=== PATIENT | male | born 1950 | race Caucasian/White ===

== ENCOUNTER 2022-04-24 13:42 | Outpatient (CLI) | payer MEDICARE, SELFPAY ==
[2022-04-24 16:19] LABS: Albumin* 5.3 g/dL (3.3-5.0); Chloride* 100 mmol/L (96-114)
[2022-04-24 16:20] LABS: Potassium* 4.7 mmol/L (3.6-5.1); Sodium* 138 mmol/L (135-149)
[2022-04-24 16:22] LABS: Alkaline Phosphatase* 83 U/L (40-150); Aspartate Amino Transferase* 96 U/L (12-35); Bilirubin Total* 0.7 mg/dL (0.1-1.5); Blood Urea Nitrogen* 21 mg/dL (7-30); Carbon Dioxide* 24 mmol/L (20-32); Cholesterol* 274 mg/dL (90-199); Creatinine* 0.9 mg/dL (0.5-1.5); Estimated Glomerular Filt Rate 91 ml/min; Total Protein* 8.8 g/dL (6.0-8.3)
[2022-04-24 16:23] LABS: Alanine Aminotransferase* 96 U/L (4-50); Calcium* 9.9 mg/dL (8.4-10.6); Glucose* 120 mg/dL (60-115); HDL Cholesterol* 46 mg/dL (>=40); LDL Cholesterol Calculated 166 mg/dL (<100); Triglycerides* 308 mg/dL (40-149)
[2022-04-24 16:52] LABS: PSA Screen* 0.35 ng/mL (0.10-4.00)
== END 2022-04-24 13:43 | disposition home or self-care (01) ==
PROVIDERS: PCP Family Medicine; Visit Provider Family Medicine
DX: Z00.00 Encounter for general adult medical examination without abnormal findings (principal); E78.5 Hyperlipidemia, unspecified; R73.01 Impaired fasting glucose; E66.9 Obesity, unspecified; N40.0 Benign prostatic hyperplasia without lower urinary tract symptoms; I10 Essential (primary) hypertension; Z12.5 Encounter for screening for malignant neoplasm of prostate
CPT/HCPCS: 80053; 80061; 84153

== ENCOUNTER 2023-01-14 12:12 | Emergency (ER) | payer MEDICARE, SELFPAY ==
[2023-01-14] VITALS (20 sets, daily range): BP systolic 142–150; BP diastolic 86–100; PULSE 71–90; RESP 20; TEMP 36.2; O2SAT 92–96; BMI 37.1
--- NOTE | 2023-01-14 12:43 | ED_ITS ---
HPI - Abdominal Pain General Time Seen by Provider: 12:43 Date Seen: 01/14/23 Chief Complaint: Abdominal Pain Stated Complaint: lower abdominal pain, unable to uintaite Time Seen by Provider: 01/14/23 12:43 Source: patient, RN notes reviewed and old records reviewed Mode of arrival: ambulatory Limitations: no limitations History of Present Illness HPI narrative: Patient is a 72-year-old male coming into the ER with abdominal pain, stating he can not urinate. He endorses dribbling urination for the last few years, feels like he is unable to urinate at the time. He points to his abdomen states it really hurts in the left lower quadrant. No fevers chills, no nausea vomiting, no diarrhea. He has had a history kidney stones, believes last 1 was maybe 25 years ago but was hospitalized. He states that he was told his prostate was enlarged couple years back on examination with his primary care provider. MD elicited complaint: abdominal pain Pertinent past history: kidney stones Related Data Previous Rx's Medication Instructions Recorded albuterol sulfate 90 mcg/actuation 2 puff inhalation Q4-6H PRN 05/01/22 aerosol inhaler shortness of breath or wheezing #8.5 grams amlodipine 10 mg tablet 10 mg PO QDAY #90 tabs 05/01/22 fluticasone 250 mcg-salmeterol 50 1 inh inhalation BID #180 ea 05/01/22 mcg/dose blistr powdr for inhalation (Advair Diskus) hydrochlorothiazide 25 mg tablet 25 mg PO .QD #90 tabs 05/01/22 hydroxyzine HCl 25 mg tablet 25 mg PO DAILY PRN itching #90 tabs 05/01/22 ipratropium 20 mcg-albuterol 100 1 puff inhalation QID PRN wheezing 05/01/22 mcg/actuation mist for inhalation #4 grams lorazepam 1 mg tablet 1 mg PO QDAY PRN insomnia #90 tabs 10/21/22 Allergies Allergy/AdvReac Type Severity Reaction Status Date / Time tetanus toxoid, adsorbed Allergy Mild swelling Verified 05/07/22 16:34 of arms Review of Systems Status of ROS Reports: 6 or more systems reviewed and unremarkable except as noted in History and below PFSH PFS Social History (Updated 05/01/22 @ 20:13 by Benoit Lyons MD) Narrative: Medical Problems: Prostatitis, acute Hypertension Obesity COPD (chronic obstructive pulmonary disease) Dxed 2004, on Advair Malaise and fatigue Shortness of breath Panic attack Dysthymia COPD exacerbation Elevated LFTs GERD (gastroesophageal reflux disease) HTN (hypertension) Tubular adenoma of colon Hyperlipidemia NAFLD (nonalcoholic fatty liver disease) Smoking Status: Former smoker How often do you have a drink containing alcohol: never How often do you have six or more drinks on one occasion: Never AUDIT-C Alcohol total score: 0 Non-prescribed substance use: denies use Little interest or pleasure in doing things: not at all Feeling down, depressed, or hopeless: not at all Exam Const: Vital Signs, click to edit/add: Vital Signs - 24 hr 01/14/23 12:28 01/14/23 13:48 01/14/23 13:49 Temperature 97.1 F L Pulse Rate 81 80 Pulse Rate [Pulse Oximeter] 90 Respiratory Rate 20 Blood Pressure 147/86 H Blood Pressure [Ri ght Upper Arm] 143/88 H Pulse Oximetry 95 94 92 Oxygen Delivery Me thod Room Air 01/14/23 14:00 01/14/23 14:02 01/14/23 14:15 Temperature Pulse Rate 80 78 78 Pulse Rate [Pulse Oximeter] Respiratory Rate Blood Pressure 150/90 H Blood Pressure [Ri ght Upper Arm] Pulse Oximetry 92 93 93 Oxygen Delivery Me thod 01/14/23 14:30 01/14/23 14:45 01/14/23 15:00 Temperature Pulse Rate 74 77 76 Pulse Rate [Pulse Oximeter] Respiratory Rate Blood Pressure Blood Pressure [Ri ght Upper Arm] Pulse Oximetry 92 93 94 Oxygen Delivery Me thod 01/14/23 15:02 Temperature Pulse Rate 79 Pulse Rate [Pulse Oximeter] Respiratory Rate Blood Pressure 142/87 H Blood Pressure [Ri ght Upper Arm] Pulse Oximetry 96 Oxygen Delivery Me thod Uncomfortable patient standing in the room. Documenting provider has reviewed patient's vital signs: yes Common normals: oriented x3, alert and well nourished General appearance: cooperative, well kempt and well developed Nutritional appearance: obese HENMT: Common normals: normocephalic, head/scalp atraumatic, hearing grossly normal bilaterally and external nose normal Head and scalp: normocephalic and atraumatic Nose: external nose normal Eye: Common normals: PERRL, EOMs intact bilaterally, conjunctivae normal and no scleral icterus Conjunctiva: conjunctiva(e) normal Pupil: PERRL Neck & C-Spine: Common normals: full ROM, no lymphadenopathy and supple Resp: Common normals: normal respiratory effort, no retractions, no use of accessory muscles and clear to auscultation bilaterally Effort & inspection: able to speak in complete sentences Auscultation: clear to auscultation bilaterally Cardio: Common normals: regular rate, regular rhythm, S1 normal heart sound, S2 normal heart sound, no gallops, no clicks, no murmurs and no rub Rate: regular rate Rhythm: regular rhythm Heart sounds: S1 normal and S2 normal GI: Common normals: Normal to inspection, nondistended, normoactive bowel sounds present, soft to palpation, non-tender, no hepatosplenomegaly and no masses Palpation: soft and no hepatosplenomegaly Other: Was in room when nursing staff was attempt to do bladder scan, they were getting minimal urine in the bladder. Did do ultrasound myself and did not find any bladder distention. He is pointing to his pain more in the left lower quadrant, there is no reproducible palpable pain at this time. Certainly is history in line with his clinical exam makes me much more concerned about a kidney stone. Neuro: Common normals: oriented x3 Sensorium/orientation: alert Psych: Appearance: well kempt Course Course Hospital Course: Patient is having left lower quadrant abdominal pain, possible urinary symptoms with this. Do think we need to rule out kidney stone as a plausible explanation. Will get basic blood work, obtain CT abdomen pelvis noncontrast. Will give him a bolus of 500 mL normal saline and 15 mg IV Toradol. Note his kidney function in April of 2022 was completely normal. Reevaluation(s) Time of Reevaluation #1: 15:33 Reevaluation #1: Have reviewed with patient any has inflammation in the sigmoid colon and is either diverticulitis versus colitis, likely infectious in his situation. The Toradol did help. He has had no fevers with this, no nausea vomiting. I do think he may be appropriate for trial for outpatient antibiotics, he does want to go home. We will give initial dose of IV antibiotics here and transition to oral antibiotics at home. He understands if he has worsening, will need to return. Vital Signs Vital signs: Initial Vital Signs Temperature 97.1 F L 01/14/23 12:28 Temperature Source Temporal Artery Scan 01/14/23 12:28 Pulse Rate 90 01/14/23 12:28 Respiratory Rate 20 01/14/23 12:28 Blood Pressure 143/88 H 01/14/23 12:28 Blood Pressure Mean 106 H 01/14/23 12:28 Blood Pressure Position Supine 01/14/23 12:28 Pulse Oximetry 95 01/14/23 12:28 Oxygen Delivery Method Room Air 01/14/23 12:28 Vital Signs Temperature 97.1 F L 01/14/23 12:28 Pulse Rate 90 01/14/23 12:28 Respiratory Rate 20 01/14/23 12:28 Blood Pressure 143/88 H 01/14/23 12:28 Pulse Oximetry 95 01/14/23 12:28 Oxygen Delivery Method Room Air 01/14/23 12:28 Temperature 97.1 F L 01/14/23 12:28 Pulse Rate 79 01/14/23 15:02 Respiratory Rate 20 01/14/23 12:28 Blood Pressure 142/87 H 01/14/23 15:02 Pulse Oximetry 96 01/14/23 15:02 Oxygen Delivery Method Room Air 01/14/23 12:28 MDM - Abdominal Pain Differential Diagnosis Differential diagnosis: Likely abdominal pain, calculus of kidney, constipation and diverticulitis Lab Data Attestation: I reviewed the patient's lab results. Labs: Lab Results 01/14/23 01/14/23 Range/Units 13:15 13:18 WBC 15.37 H (4.50-11.00) K/uL RBC 6.32 H (4.30-5.90) m/uL Hgb 17.5 (13.5-17.5) gm/dL Hct 52.2 (37.0-53.0) % MCV 83 (80-100) fL MCH 28 (26-34) pg MCHC 34 (32-36) gm/dL RDW Coeff of Ciara 13.6 (11.5-15.5) % Plt Count 274 (140-440) K/uL Neut % (Auto) 78.7 H (42.0-72.0) % Lymph % (Auto) 10.4 L (20-44) % [place] % (Auto) 8.0 (0.0-11.0) % Eos % (Auto) 2.0 (0.0-7.0) % Baso % (Auto) 0.7 (0.0-3.0) % Neut # (Auto) 12.10 H (1.7-7.0) K/uL Lymph # (Auto) 1.60 (0.90-2.90) K/uL [place] # (Auto) 1.20 H (0.00-0.90) K/UL Eos # (Auto) 0.30 (0.00-0.50) K/uL Baso # (Auto) 0.10 (0.00-0.30) K/uL Diff Slide Review Acceptable Review (Acceptable) Sodium 137 (135-149) mmol/L Potassium 3.8 (3.6-5.1) mmol/L Chloride 96 (96-114) mmol/L Carbon Dioxide 25 (20-32) mmol/L BUN 19 (7-30) mg/dL Creatinine 1.1 (0.5-1.5) mg/dL Estimated Creat Clear 53.97 Estimated GFR 71 ml/min Glucose 121 H (60-115) mg/dL Calcium 10.3 (8.4-10.6) mg/dL C-Reactive Protein 6.6 H (0.5-1.0) mg/dL POC Creatinine 1.3 (0.6-1.3) mg/dl Imaging Data CT scan - abdomen: Attestation: I have reviewed the pertinent imaging results. Radiologist's impression: Patient: ANGELITA COYNE Facility:?[facility] Patient ID:?[id number] Site Patient ID:?[id number]. Site :?[id number] Study:?CT Abdomen/Pelvis W/O-01/14/2023 1:41:03 PM Ordering Physician:?Charo Ramírez Final Report: INDICATION: Left lower quadrant abdominal pain and difficulty urinating TECHNIQUE: Axial images were obtained from the diaphragm to the pubic symphysis. Reformats were obtained in the coronal and sagittal plane. IV Contrast: None Oral Contrast: None COMPARISON: Abdomen and pelvis CT 05/18/2015 FINDINGS: Lower chest: Left lower lobe pulmonary nodule measuring 9 millimeters. Subpleural pulmonary nodule along the major fissure in the lingula measuring 6 millimeters. Liver: Mild hepatomegaly with diffusely decreased density of the liver without focal lesion. Gallbladder and bile ducts: Unremarkable. No stones or inflammation. No biliary dilatation. Spleen: Unremarkable. Normal in size without mass. Pancreas: Mild pancreatic atrophy. Adrenal glands: Unremarkable. No nodules. Kidneys: Unremarkable. No masses, stones, or hydronephrosis. Vasculature: Atherosclerosis with infrarenal abdominal aorta measuring 2.5 centimeters. GI tract: The stomach is decompressed. There are no dilated loops of large or small intestine. Extensive colonic diverticulosis with focal inflammation within the sigmoid mesentery. Pelvis: Unremarkable. Bones: Degenerative disc disease lumbar spine. IMPRESSION: 1. Colonic diverticulosis with focal inflammation in the sigmoid mesentery. Diverticulitis is possible although the inflammation does not appear centered around a particular diverticulum. Therefore, the differential diagnosis would include a long segment colitis, either infectious or inflammatory bowel disease. 2. Hepatomegaly with mild hepatic steatosis. 3. Pulmonary nodules within the left lower lobe and lingula, largest measuring 9 millimeters. These are present on the 2015 examination but have increased over the interval. Suggest follow-up outpatient PET-CT for further evaluation. Please note that all CT scans at this facility use dose modulation, iterative reconstruction, and/or weight-based dosing when appropriate to reduce radiation dose to as low as reasonably achievable. Dictated by Sheng Jean MD @ 01/14/2023 3:07:16 PM (Electronic Signature) Critical Care Time Critical Care Time Critical Care Time: No Discharge Plan Discharge Clinical Impression: Sigmoid diverticulitis Patient Disposition: Home, Self-Care Condition: Stable Instructions: Diverticulitis Diet (ED), Colitis (ED) Additional Instructions: CT is inconclusive whether this is exactly diverticulitis or colitis of the sigmoid. Either way, we are going to treat with antibiotics for infection. Do recommend taking an oral dose prior to bedtime tonight. Recommend clear liquid diet for the next 24 hours or so, can transition to a low residue diet for the next few weeks until you are improving. Recommend recheck in clinic within the next 7-10 days with your primary care provider. Return if you develop fever, have increasing abdominal pain, developed bloody diarrhea or vomiting, feel you are worsening. Activity Level: Activity as Tolerated Discharge Diet: Clear Liquid Prescriptions: No Action hydrochlorothiazide 25 mg tablet 25 mg PO .QD Qty: 90 3RF hydroxyzine HCl 25 mg tablet 25 mg PO DAILY PRN (Reason: itching) Qty: 90 3RF albuterol sulfate 90 mcg/actuation HFA aerosol inhaler 2 puff inhalation Q4-6H PRN (Reason: shortness of breath or wheezing) Qty: 8.5 3RF ipratropium-albuterol 20-100 mcg/actuation mist 1 puff inhalation QID PRN (Reason: wheezing) Qty: 4 11RF Rx Instructions: space evenly during waking hours fluticasone propion-salmeterol [Advair Diskus] 250-50 mcg/dose blister with device 1 inh inhalation BID Qty: 180 4RF amlodipine 10 mg tablet 10 mg PO QDAY Qty: 90 3RF lorazepam 1 mg tablet 1 mg PO QDAY PRN (Reason: insomnia) Qty: 90 0RF Follow Up/Referrals: Benoit Lyons MD [Primary Care Provider] - Stand Alone Forms: [facility] Info Instructions
--- NOTE | 2023-01-14 13:08 | CRLHL7_ITS ---
For Patients: As a result of the Century Cures Act, medical imaging exams and procedure reports are released immediately into your electronic medical record. You may view this report before your referring provider. If you have questions, please contact your health care provider. INDICATION: Left lower quadrant abdominal pain and difficulty urinating TECHNIQUE: Axial images were obtained from the diaphragm to the pubic symphysis. Reformats were obtained in the coronal and sagittal plane. IV Contrast: None Oral Contrast: None COMPARISON: Abdomen and pelvis CT 05/18/2015 FINDINGS: Lower chest: Left lower lobe pulmonary nodule measuring 9 millimeters. Subpleural pulmonary nodule along the major fissure in the lingula measuring 6 millimeters. Liver: Mild hepatomegaly with diffusely decreased density of the liver without focal lesion. Gallbladder and bile ducts: Unremarkable. No stones or inflammation. No biliary dilatation. Spleen: Unremarkable. Normal in size without mass. Pancreas: Mild pancreatic atrophy. Adrenal glands: Unremarkable. No nodules. Kidneys: Unremarkable. No masses, stones, or hydronephrosis. Vasculature: Atherosclerosis with infrarenal abdominal aorta measuring 2.5 centimeters. GI tract: The stomach is decompressed. There are no dilated loops of large or small intestine. Extensive colonic diverticulosis with focal inflammation within the sigmoid mesentery. Pelvis: Unremarkable. Bones: Degenerative disc disease lumbar spine. IMPRESSION: 1. Colonic diverticulosis with focal inflammation in the sigmoid mesentery. Diverticulitis is possible although the inflammation does not appear centered around a particular diverticulum. Therefore, the differential diagnosis would include a long segment colitis, either infectious or inflammatory bowel disease. 2. Hepatomegaly with mild hepatic steatosis. 3. Pulmonary nodules within the left lower lobe and lingula, largest measuring 9 millimeters. These are present on the 2014 examination but have increased over the interval. Suggest follow-up outpatient PET-CT for further evaluation. Please note that all CT scans at this facility use dose modulation, iterative reconstruction, and/or weight-based dosing when appropriate to reduce radiation dose to as low as reasonably achievable. Dictated by Sheng Jean MD @ 01/14/2023 3:07:16 PM (Electronically Signed)
[2023-01-14 13:25] LABS: Basophils Percent Auto 0.7 % (0.0-3.0); Hematocrit 52.2 % (37.0-53.0); Hemoglobin* 17.5 gm/dL (13.5-17.5); Immature Granulocytes Pct Auto 0.2 %; Lymphocytes Percent Auto 10.4 % (20-44); Mean Corpuscular HGB Conc 34 gm/dL (32-36); Mean Corpuscular Hemoglobin 28 pg (26-34); Mean Corpuscular Volume 83 fL (80-100); Neutrophils Percent Auto 78.7 % (42.0-72.0); Platelet Count* 274 K/uL (140-440); RDW Coefficient of Variation % 13.6 % (11.5-15.5); Red Blood Count 6.32 m/uL (4.30-5.90); White Blood Count* 15.37 K/uL (4.50-11.00)
[2023-01-14] MEDS: KETOROLAC 15 MG/ML inj IVP (13:31)
[2023-01-14 13:35] LABS: Creatinine, Point-of-Care* 1.3 mg/dl (0.6-1.3)
[2023-01-14 13:35] LABS: Slide Review Reflex Yes
[2023-01-14 13:39] LABS: Chloride* 96 mmol/L (96-114)
[2023-01-14 13:40] LABS: Potassium* 3.8 mmol/L (3.6-5.1); Sodium* 137 mmol/L (135-149)
[2023-01-14 13:42] LABS: Creatinine* 1.1 mg/dL (0.5-1.5); Est. Creatinine Clearance* 53.97; Estimated Glomerular Filt Rate 71 ml/min
[2023-01-14 13:43] LABS: Blood Urea Nitrogen* 19 mg/dL (7-30); Calcium* 10.3 mg/dL (8.4-10.6); Carbon Dioxide* 25 mmol/L (20-32); Glucose* 121 mg/dL (60-115)
[2023-01-14] MEDS: 0.9 % SODIUM CHLORIDE 500 ML 500 ML IV (13:43)
[2023-01-14 13:46] LABS: C Reactive Protein* 6.6 mg/dL (0.5-1.0)
[2023-01-14 13:51] LABS: Slide Review Acceptable Review (Acceptable)
[2023-01-14] MEDS: AMPICILLIN/SULBACTAM 3 GM in 0.9 % SODIUM CHLORIDE Mini-bag 100 ML IVPB (15:49)
== END 2023-01-14 16:56 | disposition home or self-care (01) ==
PROVIDERS: Emergency Provider Family Medicine; PCP Family Medicine
DX: K57.92 Diverticulitis of intestine, part unspecified, without perforation or abscess without bleeding (principal)
CPT/HCPCS: 36415; 51798; 74176; 80048; 81001; 82565; 85025; 86140; 96365; 96375; 99284; 99285; J0295; J1885; J7120

== ENCOUNTER 2024-01-09 14:57 | Outpatient (CLI) | payer MEDICARE, SELFPAY ==
--- OUTSIDE RECORDS SUMMARY | 2024-01-09 15:00 | XMS_ITS | Clinical Summary ---
Author Organization [employer] [facility] Address [place], [place] [address] Care Team Providers Care Windlasser Name Role Phone Benoit Lyons MD Primary Care Provider [phone] Allergies Active Allergy Reactions Criticality Noted Date Comments Tetanus And Diphtheria Toxoi ds, Adsorbed, Adult Edema 11/01/2015 Medications Medication Sig Dispensed Refills Start Date End Date Status diphenhydrAMINE (BENADRYL) 25 mg tablet Bedtime Active albuterol HFA (PRO-AIR) 90 mcg/actuation inhaler Every 4 Hours as needed 05/03/2020 Active amLODIPine (NORVASC) 10 mg tablet Daily 05/03/2020 Active fluticasone propion-salmeteroL (ADVAIR) 250-50 mcg/Dose diskus inhaler Twice A Day 05/03/2020 Active hydrOXYzine HCL (ATARAX) 25 mg tablet 02/01/2020 Act dnaielle hydroCHLOROthiazide (HCTZ) 25 mg tablet Daily 05/03/2020 Activ e ipratropium-albuteroL (COMBIVENT RESPIMAT) (20-100 mcg each actuation) mist inhaler Four Times Daily as needed 05/03/2020 Active LORazepam (ATIVAN) 1 mg tablet Bedtime as needed 05/10/2020 Active nicotine (NICORETTE) 2 mg gum Take 1 Each by mouth every hour while awake as needed for Nicotine Craving. 0 06/09/2020 Active Social History Tobacco Use Types Packs/Day Years Used Date Smoking Tobacco: Former Smokeless Tobacco: Never Tobacco Cessation:Counseling Given: Yes Social Connections Answer Date Recorded Frequency of Communication with Friends and Fami ly Not on file 07/22/2021 Financial Resource Strain Answer Date R ecorded Difficulty of Paying Living Expenses Not on file 07/22/2021 Difficulty of Paying Living Expenses Not on file 07/22/2021 Sex and Gender Information Value Date Recorded Sex Assigned at Not on file Gender Identity Not on file Sexual Orientation Not on file Obstetrics History Last Filed Vital Signs Vital Sign Reading Time Taken Comments Blood Pressure 140/88 06/09/2020 1:46 PM [employer] Pulse 82 06/09/2020 1:46 PM [employer] Temperature - - Respiratory Rate - - Oxygen Saturation 95% 06/09/2020 1:46 PM [employer] Inhaled Oxygen Concentration - - Weight 111.4 kg (245 lb 8 oz) 06/09/2020 1:46 PM [employer] Height - - Body Mass Index - - Plan of Treatment Health Maintenance Due Date Last Done Comments Tdap 1960 Depression screening for age 12+ 1961 BMI (ht and wt on same day) for age 18+ 10/01/1967 Tetanus booster 1969 Colonoscopy through age 75 1994 Lipids for age 45-75 1994 Zoster (shingles) series for age 50+ (1 of 2) 10/01/19 00 Medicare Wellness for age 65+ 2014 Pneumococcal series for age 65+ (1 of 1 - PCV) 015 COVID-19 vaccine series (1 - 2022-24 season) 3 Influenza for age 65+ 03/22/2024 Hepatitis C screening for age 18-79 Completed 06/09 Procedures Procedure Name Priority Date/Time Associated Diagnosis Comments ANTI HCV Routine 06/09/2020 2:21 PM [employer] Elevated liver enzymes from Last 3 Months or Most Recently Relevant to Health Maintenance Results * ANTI HCV (06/09/2020 2:21 PM [employer]) HEPATITIS C ANTIBODY Non-React danielle Non-React danielle 06/09/2020 10:08 PM [employer] [facility] Comment:Antibodies to HCV no t detected; does not exclude the possibility of exposure to HCV. Blood BLOOD SPECIMEN / Unknown Venipuncture / Unknown 06/09/2020 2:21 PM [employer] 06/09/2020 2:22 PM [employer] Kash Birmingham MD [facility] [address] [place] [address], from Last 3 Months or Most Recently Relevant to Health Maintenance Care Teams Windlasser Relationship Specialty Start Date End Date Benoit Lyons MD [address] [place] [id number] PCP - General Family Practice 06/09/20
== END 2024-01-09 14:58 | disposition home or self-care (01) ==
PROVIDERS: PCP Family Medicine; Visit Provider Family Medicine
DX: E78.5 Hyperlipidemia, unspecified (principal); I10 Essential (primary) hypertension; Z13.6 Encounter for screening for cardiovascular disorders
CPT/HCPCS: 80053; 80061

== ENCOUNTER 2024-03-21 14:03 | Emergency (ER) | payer MEDICARE, SELFPAY ==
[2024-03-21] VITALS (19 sets, daily range): BP systolic 153–172; BP diastolic 82–109; PULSE 74–94; RESP 30; TEMP 37.2; O2SAT 93–98; BMI 39.1
--- NOTE | 2024-03-21 14:18 | ED_ITS ---
HPI - General Adult General Chief complaint: Shortness of Breath/Dyspnea Stated complaint: COPD, spitting up blood Time Seen by Provider: 03/21/24 14:17 History of Present Illness HPI narrative: Pt coughing up blood x 1 day. States it looks like blood clots and mucus . Hx COPD, feels he is in a flare up. Reports lightheadedness . LEFT sided rib/chest pain, ongoing issue but worse with flare up. 73-year-old man presenting to the emergency department with concern of cough and chest congestion over the last week. Has been treating with guaifenesin of some sort. Maybe it helps. He has had some blood in sputum with some coughing over the last day. No fever. Does have an underlying history of COPD in thinks he might be in a flare. Apparently quit smoking upon this diagnosis. He has been feeling some lightheadedness. Feels a sense of pressure chest that can be r elieved with coughing. No fever. No chills. Has Advair which apparently is using regularly. Also has albuterol inhaler which he says does not help at this point. No particular exposures. Lives alone. Later questioning does admit that he is a little anxious. During exam does mention he has had some irritation of his left knee for some time. Intermittently even sensitive to a sheet being on it. He does not recount does not recount erythema. Maybe it swells? No specific trauma. Later does recount that has some shrapnel/foreign body remaining chronically. No history of gout. Related Data Previous Rx's ?Medication ?Instructions ?Recorded lorazepam 1 mg tablet 1 mg PO QDAY PRN insomnia #90 tabs 01/07/24 albuterol sulfate 90 mcg/actuation 2 puff inhalation Q4-6H PRN 01/09/24 aerosol inhaler shortness of breath or wheezing #8.5 grams amlodipine 10 mg tablet 10 mg PO QDAY #90 tabs 01/09/24 fluticasone 250 mcg-salmeterol 50 1 inh inhalation BID #180 ea 01/09/24 mcg/dose blistr powdr for inhalation hydrochlorothiazide 25 mg tablet 25 mg PO .QD #90 tabs 01/09/24 hydroxyzine HCl 25 mg tablet 25 mg PO DAILY PRN itching #90 tabs 01/09/24 doxycycline hyclate 100 mg capsule 100 mg PO BID 8 days #16 caps 03/21/24 ipratropium 0.5 mg-albuterol 3 mg 3 ml inhalation QID PRN #90 mL 03/21/24 (2.5 mg base)/3 mL nebulization soln prednisone 20 mg tablet 40 mg (2 x 20 mg) PO BID 5 days 03/21/24 #10 tabs Allergies Allergy/AdvReac Type Severity Reaction Status Date / Time tetanus toxoid, adsorbed Allergy Mild swelling Verified 03/21/24 14:15 of arms Review of Systems Status of ROS: Reports: 6 or more systems reviewed and unremarkable except as noted in History and below PFSH PFSH Social History Narrative: Medical Problems: Prostatitis, acute Hypertension Obesity COPD (chronic obstructive pulmonary disease) Dxed 2004, on Advair Malaise and fatigue Shortness of breath Panic attack Dysthymia COPD exacerbation Elevated LFTs GERD (gastroesophageal reflux disease) HTN (hypertension) Tubular adenoma of colon Hyperlipidemia NAFLD (nonalcoholic fatty liver disease) What is your current living situation?: I presently have a place to live In the past 12 months, utilities in danger of being shut off: no In past 12 months, lack of transportation kept you from medical appts, meetings, work, or getting things needed for daily living: no In the past 12 mos, have been you worried that your food would run out before you had money to buy more?: never true In the past 12 mos, the food you bought just didn't last and you didn't have money to buy more?: never true Smoking Status: Former smoker How often do you have a drink containing alcohol: never How often do you have six or more drinks on one occasion: Never AUDIT-C Alcohol total score: 0 Non-prescribed substance use: denies use How often does anyone, including family, friends and others, physically hurt you : never How often does anyone, including family, friends and others, insult or talk down to you: never How often does anyone, including family, friends and others, threaten you with harm: never How often does anyone, including family, friends and others, scream or curse at you: never Little interest or pleasure in doing things: not at all Feeling down, depressed, or hopeless: not at all Exam Narrative: Exam Narrative: He is seated at the end of the bed a little apologeticly. Subtly tremulous. Maybe a little flushed in his face. Fully alert. On my exam I do not appreciate him to be tachypneic. Maybe subtly labored. Lungs with diffuse trace crepitus and end-expiratory trace wheeze. Oropharynx is unremarkable. Skin is warm and dry. Well-perfused peripherally. There is no lower extremity edema. Heart is in a regular rate and rhythm but distant. No murmur identified. Abdomen is overweight soft. Is holding a tissue with trace amount of blood within other sputum. Examining of the left leg in more detail -- again without lower edema. Negative Homans. There is no swelling or erythema about the left knee although posteriorly intermittently seems to be more tender to palpation here centrally. A little full. No pes anserine bursal area tenderness. Subtle depression superior lateral to the patella and intermittently tender here. A little more of depression then evident on the right side. Const: Vital Signs, click to edit/add: Vital Signs - 24 hr 03/21/24 14:10 03/21/24 14:18 03/21/24 14:30 Temperature 98.9 F Pulse Rate 84 82 Pulse Rate [Pulse Oximeter] 87 Respiratory Rate 30 H Blood Pressure Blood Pressure [Le ft Upper Arm] 172/82 H Pulse Oximetry 95 96 93 [facility] 03/21/24 14:32 03/21/24 14:45 03/21/24 15:15 Temperature Pulse Rate 82 81 Pulse Rate [Pulse Oximeter] Respiratory Rate Blood Pressure 171/83 H Blood Pressure [Le ft Upper Arm] Pulse Oximetry 95 93 95 [facility] 03/21/24 15:17 03/21/24 15:18 03/21/24 15:30 Temperature Pulse Rate 76 80 82 Pulse Rate [Pulse Oximeter] Respiratory Rate Blood Pressure 153/109 H Blood Pressure [Le ft Upper Arm] Pulse Oximetry 94 95 98 [facility] 03/21/24 15:35 03/21/24 15:36 03/21/24 15:45 Temperature Pulse Rate 78 78 74 Pulse Rate [Pulse Oximeter] Respiratory Rate Blood Pressure 153/94 H Blood Pressure [Le ft Upper Arm] Pulse Oximetry 95 95 94 [facility] 03/21/24 16:00 03/21/24 16:02 03/21/24 16:15 Temperature Pulse Rate 94 79 76 Pulse Rate [Pulse Oximeter] Respiratory Rate Blood Pressure 163/96 H Blood Pressure [Le ft Upper Arm] Pulse Oximetry 96 93 95 Oxygen Delivery Me thod 03/21/24 16:24 03/21/24 16:30 03/21/24 16:32 Temperature Pulse Rate 83 74 80 Pulse Rate [Pulse Oximeter] Respiratory Rate Blood Pressure 168/100 H 157/82 H Blood Pressure [Le ft Upper Arm] Pulse Oximetry 94 94 93 Oxygen Delivery Me thod 03/21/24 16:45 Temperature Pulse Rate 78 Pulse Rate [Pulse Oximeter] Respiratory Rate Blood Pressure Blood Pressure [Le ft Upper Arm] Pulse Oximetry 93 Oxygen Delivery Me thod Documenting provider has reviewed patient's vital signs: yes Course Vital Signs Vital signs: Initial Vital Signs Temperature 98.9 F 03/21/24 14:10 Temperature Source Temporal Artery Scan 03/21/24 14:10 Pulse Rate 87 03/21/24 14:10 Pulse Rhythm Regular 03/21/24 14:10 Pulse Strength 3+ Normal 03/21/24 14:10 Respiratory Rate 30 H 03/21/24 14:10 Blood Pressure 172/82 H 03/21/24 14:10 Blood Pressure Mean 112 H 03/21/24 14:10 Blood Pressure Position Sitting 03/21/24 14:10 Pulse Oximetry 95 03/21/24 14:10 Oxygen Delivery Method Room Air 03/21/24 14:10 Vital Signs Temperature 98.9 F 03/21/24 14:10 Pulse Rate 87 03/21/24 14:10 Respiratory Rate 30 H 03/21/24 14:10 Blood Pressure 172/82 H 03/21/24 14:10 Pulse Oximetry 95 03/21/24 14:10 Oxygen Delivery Method Room Air 03/21/24 14:10 Temperature 98.9 F 03/21/24 14:10 Pulse Rate 78 03/21/24 16:45 Respiratory Rate 30 H 03/21/24 14:10 Blood Pressure 157/82 H 03/21/24 16:32 Pulse Oximetry 93 03/21/24 16:45 Oxygen Delivery Method Room Air 03/21/24 14:10 Medications Administered Medications: Discontinued Medications Generic Name Dose Route Start Last Admin Trade Name Freq PRN Reason Stop Dose Admin Albuterol/Ipratropium 1 neb 03/21/24 15:02 03/21/24 15:30 Iprat-Albut 0.5-2.5 Mg/3 Ml Neb IH 03/21/24 15:03 1 neb ONCE ONE Administration Prednisone 60 mg 03/21/24 17:46 03/21/24 17:50 Prednisone 20 Mg Tablet PO 03/21/24 17:47 60 mg ONCE ONE Administration Medical Decision Making MDM Narrative Medical decision making narrative: With diagnosis of COPD and findings on exam likely is having some degree of COPD flare. The pressure that he describes as doubtful cardiac. Would screen with D-dimer for PE but scores low on PERC -- maybe a 1. Description of pressure is reassuring in its intermittent nature but would also screen for any evidence of cardiovascular injury. Check labs. Look for pneumonia, pneumothorax. Check for COVID considering community prevalence. DuoNeb trial. Oximetry was by 95% on room air on arrival. Post neb is about the same, at times 93%, not unexpected after nebulization. He however reports feeling quite a bit better and reauscultation reveals clearing of wheeze and crepitus. He feels like he did manage to cough up more mucus. Chest x-ray reviewed by me has without infiltrate. No pneumothorax. Symptoms improved as noted and labs are reassuring. He would like a nebulizer as this has been the only thing that really helped him yet. I can write for this. He says he would consider paying [id number] depending on coverage. With COPD diagnosis though I think this is legitimate device to have at home. Pharmacies are closed. Will start prednisone here in the emergency department. We did discuss further evaluation of the knee including initiating imaging. He would prefer to follow this up outpatient. Differential here did include pulmonary embolus he does not have any distal edema however. D-dimer was negative. 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 There may be some partial disruption of the patellar tendon as evidenced on by mild defect on exam. Maybe is aggravated by this trap no he described. Described a burning pain. Osteoarthritis related? Discomfort on exam seems to be reproducible extra-articular. See patient discharge plan for further discussion Medical Records Medical records reviewed: Yes I reviewed the patient's medical records Lab Data Lab results reviewed: Yes I reviewed the patient's lab results Labs: Lab Results 03/21/24 03/21/24 Range/Units 15:03 15:10 WBC 10.51 (4.50-11.00) K/uL RBC 6.46 H (4.30-5.90) m/uL Hgb 18.0 H (13.5-17.5) gm/dL Hct 54.4 H (37.0-53.0) % MCV 84 (80-100) fL MCH 28 (26-34) pg MCHC 33 (32-36) gm/dL RDW Coeff of Ciara 13.2 (11.5-15.5) % Plt Count 305 (140-440) K/uL Neut % (Auto) 70.4 (42.0-72.0) % Lymph % (Auto) 18.2 L (20-44) % Bacon % (Auto) 7.6 (0.0-11.0) % Eos % (Auto) 2.2 (0.0-7.0) % Baso % (Auto) 1.2 (0.0-3.0) % Neut # (Auto) 7.40 H (1.7-7.0) K/uL Lymph # (Auto) 1.90 (0.90-2.90) K/uL Bacon # (Auto) 0.80 (0.00-0.90) K/UL Eos # (Auto) 0.23 (0.00-0.50) K/uL Baso # (Auto) 0.13 (0.00-0.30) K/uL Abs Immat Gran (auto) 0.04 (0.00-0.30) K/uL Imm/Tot Granulo (auto) 0.4 % D-Dimer Quant (PE/DVT) 0.34 (0.00-0.50) ug/ml Sodium 136 (135-149) mmol/L Potassium 4.0 (3.6-5.1) mmol/L Chloride 100 (96-114) mmol/L Carbon Dioxide 22 (20-32) mmol/L Anion Gap 14 (7-15) mEq/L BUN 19 (7-30) mg/dL Creatinine 1.0 (0.5-1.5) mg/dL Estimated Creat Clear 56.38 Estimated GFR 79 ml/min Glucose 132 H (60-115) mg/dL Calcium 10.5 (8.4-10.6) mg/dL Magnesium 2.5 (1.5-2.6) mg/dL Troponin I < 0.01 L (0.01-0.04) ng/mL C-Reactive Protein 0.8 (0.5-1.0) mg/dL NT-Pro-B Natriuret Pep 28 pg/mL SARS-CoV-2 (PCR) Negative SARS-CoV-2 (Negative) Influenza Type A (PCR) Negative PCR FLU A (Negative) Influenza Type B (PCR) Negative PCR FLU B (Negative) RSV (PCR) Negative PCR RSV (Negative) POC Troponin I 0.00 L (0.01-0.04) ng/ml Discharge Plan Discharge Clinical Impression: COPD exacerbation Patient Disposition: Home, Self-Care Condition: Improved Additional Instructions: You can keep using your guaifenesin if you feel it helpful. Please use the nebulizer treatments, the DuoNebs, 4 times a day over the next 3 days. You can still use your albuterol inhaler in between. Try not to exceed 9 respiratory treatments/dosing in a 24 hour period of any sort. You can however place distilled water in the neb cup and you might find this also relieving. Maybe will help you bring up some a that sputum you are trying to expel. In the meantime though prednisone will be helpful in decreasing inflammation and therefore I think decreasing sputum production. Radiology has had a chance to review your imaging as well and they do not see a bacterial infiltrate. Sometimes however with COPD exacerbations antibiotics are indeed helpful; maybe we did not see something yet that is evolving. I will leave that up to you if you choose to fill this antibiotic now or wait a couple of days pending improvement. Prescriptions: New ipratropium-albuterol 0.5 mg-3 mg(2.5 mg base)/3 mL solution for nebulization 3 ml inhalation QID PRNQty: 90 0RF Rx Instructions: for 3 doses prednisone 20 mg tablet 40 mg PO BID 5 Days Qty: 10 1RF doxycycline hyclate 100 mg capsule 100 mg PO BID 8 Days Qty: 16 0RF No Action albuterol sulfate 90 mcg/actuation HFA aerosol inhaler 2 puff inhalation Q4-6H PRN (Reason: shortness of breath or wheezing) Qty: 8.5 3RF amlodipine 10 mg tablet 10 mg PO QDAY Qty: 90 3RF hydrochlorothiazide 25 mg tablet 25 mg PO .QD Qty: 90 3RF hydroxyzine HCl 25 mg tablet 25 mg PO DAILY PRN (Reason: itching) Qty: 90 3RF fluticasone propion-salmeterol 250-50 mcg/dose blister with device 1 inh inhalation BID Qty: 180 3RF lorazepam 1 mg tablet 1 mg PO QDAY PRN (Reason: insomnia) Qty: 90 1RF Follow Up/Referrals: Benoit Lyons MD [Primary Care Provider] - Stand Alone Forms: [facility] Info Instructions
[2024-03-21 15:21] LABS: Basophils Absolute Auto 0.13 K/uL (0.00-0.30); Basophils Percent Auto 1.2 % (0.0-3.0); Eosinophils Absolute Auto 0.23 K/uL (0.00-0.50); Eosinophils Percent Auto 2.2 % (0.0-7.0); Hematocrit 54.4 % (37.0-53.0); Immature Granulocytes Abs Auto 0.04 K/uL (0.00-0.30); Immature Granulocytes Pct Auto 0.4 %; Lymphocytes Percent Auto 18.2 % (20-44); Mean Corpuscular HGB Conc 33 gm/dL (32-36); Mean Corpuscular Hemoglobin 28 pg (26-34); Mean Corpuscular Volume 84 fL (80-100); Monocytes Percent Auto 7.6 % (0.0-11.0); Neutrophils Percent Auto 70.4 % (42.0-72.0); Platelet Count* 305 K/uL (140-440); RDW Coefficient of Variation % 13.2 % (11.5-15.5); Red Blood Count 6.46 m/uL (4.30-5.90); White Blood Count* 10.51 K/uL (4.50-11.00)
[2024-03-21 15:24] LABS: Slide Review Reflex No
[2024-03-21] MEDS: IPRAT-ALBUT 0.5-2.5 MG/3 ML NEB 1 NEB IH (15:30)
[2024-03-21 15:33] LABS: Chloride* 100 mmol/L (96-114); Sodium* 136 mmol/L (135-149)
--- OUTSIDE RECORDS SUMMARY | 2024-03-21 15:34 | XMS_ITS | Clinical Summary ---
Author Organization [facility] Address [place], [place] [address] Care Team Providers Care Internal Investigator Name Role Phone Benoit Lyons MD Primary Care Provider [phone] Allergies Active Allergy Reactions Criticality Noted Date [...] HCL (ATARAX) 25 mg tablet 02/01/2020 Act danielle hydroCHLOROthiazide (HCTZ) 25 mg tablet Daily 05/03/2020 [...] Comments Blood Pressure 140/88 06/09/2020 1:46 PM CAD PROGRAMMER Pulse 82 06/09/2020 1:46 PM CAD PROGRAMMER Temperature - - Respiratory Rate - - Oxygen Saturation 95% 06/09/2020 1:46 PM CAD PROGRAMMER Inhaled Oxygen Concentration - - Weight 111.4 kg (245 lb 8 oz) 06/09/2020 1:46 PM CAD PROGRAMMER Height - - Body Mass Index - [...] Comments ANTI HCV Routine 06/09/2020 2:21 PM CAD PROGRAMMER Elevated liver enzymes from Last 3 Months or Most Recently Relevant to Health Maintenance Results * ANTI HCV (06/09/2020 2:21 PM CAD PROGRAMMER) HEPATITIS C ANTIBODY Non-React danielle Non-React danielle 06/09/2020 10:08 PM CAD PROGRAMMER [facility] Comment:Antibodies to HCV no t detected; does not exclude the possibility of exposure to HCV. Blood BLOOD SPECIMEN / Unknown Venipuncture / Unknown 06/09/2020 2:21 PM CAD PROGRAMMER 06/09/2020 2:22 PM CAD PROGRAMMER Kash Birmingham MD [facility] [address] [place] [address], from Last 3 Months or Most Recently Relevant to Health Maintenance Care Teams Internal Investigator Relationship Specialty Start Date End Date Benoit Lyons MD [address] [place] [id number] PCP - General Family Practice 06/09/20
[2024-03-21 15:36] LABS: Est. Creatinine Clearance* 56.38; Estimated Glomerular Filt Rate 79 ml/min
[2024-03-21 15:37] LABS: Anion Gap 14 mEq/L (7-15); Blood Urea Nitrogen* 19 mg/dL (7-30); Calcium* 10.5 mg/dL (8.4-10.6); Carbon Dioxide* 22 mmol/L (20-32); Glucose* 132 mg/dL (60-115); Magnesium* 2.5 mg/dL (1.5-2.6)
[2024-03-21 15:39] LABS: D Dimer Quantitative* 0.34 ug/ml (0.00-0.50)
[2024-03-21 15:40] LABS: C Reactive Protein* 0.8 mg/dL (0.5-1.0)
[2024-03-21 15:47] LABS: NT Pro B Type NatriureticPept* 28 pg/mL
[2024-03-21 15:49] LABS: Troponin I* < 0.01 ng/mL (0.01-0.04)
[2024-03-21 15:55] LABS: PCR FLU A Negative PCR FLU A (Negative); PCR FLU B Negative PCR FLU B (Negative); PCR RSV Negative PCR RSV (Negative); SARS PCR* Negative SARS-CoV-2 (Negative)
--- NOTE | 2024-03-21 16:07 | CRLHL7_ITS ---
For Patients: As a result of the Century Cures Act, medical imaging exams and procedure reports are released immediately into your electronic medical record. You may view this report before your referring provider. If you have questions, please contact your health care provider. INDICATION: One week of cough, dyspnea TECHNIQUE: Chest 2 views. COMPARISON: Chest radiograph 04/22/2018 FINDINGS: Cardiovascular and mediastinum: Heart size is normal. Unremarkable mediastinum. Lungs and pleural spaces: Lungs are clear. No sign of infiltrate or mass. Flattening of the diaphragms, consistent with known history of COPD. No sign of pleural effusion. No pneumothorax. Bones and soft tissues: DISH. IMPRESSION: No acute findings and no significant changes from the prior exam. Dictated by Asya Armendariz MD @ 03/21/2024 5:29:35 PM (Electronically Signed)
[2024-03-21] MEDS: predniSONE 20 MG TABLET 60 MG PO (17:50)
== END 2024-03-21 17:57 | disposition home or self-care (01) ==
PROVIDERS: Emergency Provider Family Medicine; PCP Family Medicine
DX: J44.1 Chronic obstructive pulmonary disease with (acute) exacerbation (principal)
CPT/HCPCS: 36415; 71046; 80048; 83735; 83880; 84484; 85025; 85379; 86140; 87631; 94761; 99284; J7512

== ENCOUNTER 2024-04-01 12:28 | Emergency (ER) | payer MEDICARE, SELFPAY ==
[2024-04-01 13:09] VITALS: BP 161/92; PULSE 72; RESP 20; TEMP 37.1; O2SAT 94; BMI 38.7
[2024-04-01 13:58] LABS: SARS PCR* Negative SARS-CoV-2 (Negative)
--- NOTE | 2024-04-01 14:07 | ED.GENADULT ---
HPI - General Adult General Time Seen by Provider: 14:10 Date Seen: 04/01/24 Chief complaint: Shortness of Breath/Dyspnea Stated complaint: Shortness of Breath, COPD, lung pain Time Seen by Provider: 04/01/24 14:02 Source: patient, RN notes reviewed and old records reviewed Mode of arrival: ambulatory Limitations: no limitations History of Present Illness HPI narrative: This 73-year-old male with underlying COPD was referred to us from the clinic. Patient was going in to get more medicines, talk about his shortness of breath and his left chest pain. He states he has left chest pain along the lateral wall, has been there for years but is worsening. There may be is a component of pleuritic change with this. He does note that he had a CT before, there was a lung mass but he opted to not do anything about it. Patient was coughing up bloody sputum, was seen in the ER on March 21. He had a negative D-dimer, normal chest x-ray. He was reportedly given prednisone, antibiotics and nebs. He states he felt better. He is no longer coughing anything up. He is feeling more short of breath again however. Notes no lower extremity edema. He is not noting any fevers or night sweats. He denies any history of prior cardiac disease. Patient was given a prescription for DuoNebs and nebulizer. He took prednisone 40 mg b.i.d. for 5 days. He also took doxycycline 100 mg b.i.d. for 8 days. Patient was going to the clinic today to get refills of medicines reportedly. Patient had an abdomen and pelvis CT on 01/14/2023 for abdominal issues. There incidental pulmonary nodules within the left lower lobe and lingula, largest measuring 9 mm. These were compared to an exam from 2014 which head showed interval increased size. They had recommended a follow-up outpatient PET CT for further evaluation which patient declined. Related Data Previous Rx's ?Medication ?Instructions ?Recorded lorazepam 1 mg tablet 1 mg PO QDAY PRN insomnia #90 tabs 01/07/24 amlodipine 10 mg tablet 10 mg PO QDAY #90 tabs 01/09/24 fluticasone 250 mcg-salmeterol 50 1 inh inhalation BID #180 ea 01/09/24 mcg/dose blistr powdr for inhalation hydrochlorothiazide 25 mg tablet 25 mg PO .QD #90 tabs 01/09/24 hydroxyzine HCl 25 mg tablet 25 mg PO DAILY PRN itching #90 tabs 01/09/24 ipratropium 0.5 mg-albuterol 3 mg 3 ml inhalation QID PRN #90 mL 03/21/24 (2.5 mg base)/3 mL nebulization soln albuterol sulfate 90 mcg/actuation 2 puff inhalation Q4-6H PRN 03/31/24 aerosol inhaler shortness of breath or wheezing #8.5 grams ipratropium 0.5 mg-albuterol 3 mg 3 ml inhalation TID #90 mL 04/01/24 (2.5 mg base)/3 mL nebulization soln Allergies Allergy/AdvReac Type Severity Reaction Status Date / Time tetanus toxoid, adsorbed Allergy Mild swelling Verified 04/01/24 13:15 of arms Review of Systems Status of ROS: Reports: 6 or more systems reviewed and unremarkable except as noted in History and below PFSH PFSH Social History Narrative: Medical Problems: Prostatitis, acute Hypertension Obesity COPD (chronic obstructive pulmonary disease) Dxed 2004, on Advair Malaise and fatigue Shortness of breath Panic attack Dysthymia COPD exacerbation Elevated LFTs GERD (gastroesophageal reflux disease) HTN (hypertension) Tubular adenoma of colon Hyperlipidemia NAFLD (nonalcoholic fatty liver disease) What is your current living situation?: I presently have a place to live In the past 12 months, utilities in danger of being shut off: no In past 12 months, lack of transportation kept you from medical appts, meetings, work, or getting things needed for daily living: no In the past 12 mos, have been you worried that your food would run out before you had money to buy more?: never true In the past 12 mos, the food you bought just didn't last and you didn't have money to buy more?: never true Smoking Status: Former smoker Do you use any of these nicotine containing products: None Second hand tobacco smoke exposure: No How often do you have a drink containing alcohol: never How often do you have six or more drinks on one occasion: Never AUDIT-C Alcohol total score: 0 Non-prescribed substance use: denies use How often does anyone, including family, friends and others, physically hurt you: never How often does anyone, including family, friends and others, insult or talk down to you: never How often does anyone, including family, friends and others, threaten you with harm: never How often does anyone, including family, friends and others, scream or curse at you: never Little interest or pleasure in doing things: not at all Feeling down, depressed, or hopeless: not at all service: No Exam Const: Vital Signs, click to edit/add: Vital Signs - 24 hr 04/01/24 13:09 04/01/24 14:33 04/01/24 16:12 Temperature 98.7 F 97.1 F L Pulse Rate [Pulse Oximeter] 72 75 Respiratory Rate 20 17 Blood Pressure [Ri ght Upper Arm] 161/92 H 140/95 H Pulse Oximetry 94 95 93 Oxygen Delivery Me thod Room Air Room Air 73-year-old male is sitting up along the edge of the bed. He is very pleasant, breathing easily on room air, alert, interactive, no apparent distress. Body habitus is obese. Pupils equal round reactive, sclera clear, symmetrical facial function. Able to speak in complete sentences. Neck thick but supple, no masses noted. Lungs are clear but with distant breath sounds, no wheezing or crackles, no tachypnea. CV regular rate and rhythm, no murmur, normal S1-S2, no S3-S4. Abdomen is obese but soft, nontender. He has no lower extremity edema. Documenting provider has reviewed patient's vital signs: yes Course Course ED Course: This is a 73-year-old male was COPD that is hemodynamically stable, afebrile, not hypoxic. Has chronic but worsening left-sided chest pain. Will get an EKG, get a troponin and consider ischemic disease. Will also consider the possibility that he has worsening underlying lung pathology given the growth of the pulmonary nodule that he had back on 02/2023 CT. May need to consider imaging of his lungs. Will update a D-dimer as well. Get full complement of labs, monitor him on pulse oximetry here. Reevaluation(s) Time of Reevaluation #1: 15:16 Reevaluation #1: D-dimer is 0.79, was normal on March 21. Will proceed with chest CT imaging PE protocol. I do see on his chest x-ray that it looks like he has ankylosing spondylitis of his thoracic spine. This could be giving him a thoracic radiculopathy. Time of Reevaluation #2: 17:19 Reevaluation #2: we have reviewed that the pulmonary nodules are slightly bigger, he is quite happy that he does not have a large mass in his chest. Discussed with him that I am wondering if this thoracic back pain is actually radiculopathy given that he has ankylosing spondylitis. He can follow up with his primary and discuss MRI imaging. He has been using Aleve, will have him add in Tylenol. As far as his breathing, he is out of DuoNebs, he does not feel like he needs prednisone. He really feels the DuoNebs do help. He was using him 3 times a day. I will get these refilled for him. He can not use to follow-up the pulmonary nodules with repeat CT imaging or not, can discuss this further with his primary. Vital Signs Vital signs: Initial Vital Signs Temperature 98.7 F 04/01/24 13:09 Temperature Source Temporal Artery Scan 04/01/24 13:09 Pulse Rate 72 04/01/24 13:09 Pulse Rhythm Regular 04/01/24 13:09 Pulse Strength 3+ Normal 04/01/24 13:09 Respiratory Rate 20 04/01/24 13:09 Blood Pressure 161/92 H 04/01/24 13:09 Blood Pressure Mean 115 H 04/01/24 13:09 Blood Pressure Position Sitting 04/01/24 13:09 Pulse Oximetry 94 04/01/24 13:09 Oxygen Delivery Method Room Air 04/01/24 13:09 Vital Signs Temperature 98.7 F 04/01/24 13:09 Pulse Rate 72 04/01/24 13:09 Respiratory Rate 20 04/01/24 13:09 Blood Pressure 161/92 H 04/01/24 13:09 Pulse Oximetry 94 04/01/24 13:09 Oxygen Delivery Method Room Air 04/01/24 13:09 Temperature 97.1 F L 04/01/24 16:12 Pulse Rate 75 04/01/24 16:12 Respiratory Rate 17 04/01/24 16:12 Blood Pressure 140/95 H 04/01/24 16:12 Pulse Oximetry 93 04/01/24 16:12 Oxygen Delivery Method Room Air 04/01/24 16:12 Medical Decision Making Lab Data Lab results reviewed: Yes I reviewed the patient's lab results Labs: Lab Results 04/01/24 04/01/24 Range/Units 13:16 14:20 WBC 13.28 H (4.50-11.00) K/uL RBC 6.46 H (4.30-5.90) m/uL Hgb 18.2 H (13.5-17.5) gm/dL Hct 55.0 H (37.0-53.0) % MCV 85 (80-100) fL MCH 28 (26-34) pg MCHC 33 (32-36) gm/dL RDW Coeff of Ciara 13.8 (11.5-15.5) % Plt Count 248 (140-440) K/uL Neut % (Auto) 67.5 (42.0-72.0) % Lymph % (Auto) 17.8 L (20-44) % [place] % (Auto) 8.8 (0.0-11.0) % Eos % (Auto) 4.2 (0.0-7.0) % Baso % (Auto) 0.6 (0.0-3.0) % Neut # (Auto) 9.00 H (1.7-7.0) K/uL Lymph # (Auto) 2.40 (0.90-2.90) K/uL [place] # (Auto) 1.20 H (0.00-0.90) K/UL Eos # (Auto) 0.60 H (0.00-0.50) K/uL Baso # (Auto) 0.10 (0.00-0.30) K/uL Abs Immat Gran (auto) 0.10 (0.00-0.30) K/uL Imm/Tot Granulo (auto) 1.1 % D-Dimer Quant (PE/DVT) 0.79 H (0.00-0.50) ug/ml VBG pH 7.457 H (7.32-7.43) VBG pCO2 33 L (40-50) mmHG VBG pO2 71.9 H (25-47) mmHG VBG HCO3 23 (21-28) mmol/L Sodium 137 (135-149) mmol/L Potassium 4.0 (3.6-5.1) mmol/L Chloride 103 (96-114) mmol/L Carbon Dioxide 22 (20-32) mmol/L Anion Gap 12 (7-15) mEq/L BUN 22 (7-30) mg/dL Creatinine 0.9 (0.5-1.5) mg/dL Estimated Creat Clear 58.48 Estimated GFR 90 ml/min Glucose 119 H (60-115) mg/dL Lactate 1.3 (0.5-1.9) mmol/L Calcium 9.7 (8.4-10.6) mg/dL Total Bilirubin 0.9 (0.1-1.5) mg/dL AST 82 H (12-35) U/L ALT 146 H (4-50) U/L Alkaline Phosphatase 79 (40-150) U/L Troponin I < 0.01 L (0.01-0.04) ng/mL C-Reactive Protein 1.3 H (0.5-1.0) mg/dL NT-Pro-B Natriuret Pep 25 pg/mL Total Protein 8.1 (6.0-8.3) g/dL Albumin 4.9 (3.3-5.0) g/dL SARS-CoV-2 (PCR) Negative SARS-CoV-2 (Negative) Imaging Data Chest x-ray: Attestation: I have reviewed the pertinent imaging results. Radiologist's impression: Patient: [facility] Facility:?[facility] Patient ID:?[id number] Site Patient ID:?[id number]. Site :?[id number] Study:?XRay-Chest 2 VIEW-04/01/2024 2:38:31 PM Ordering Physician:Joseph Ramírez Final Report: INDICATION: Shortness of breath, chronic obstructive pulmonary disease, left chest pain TECHNIQUE: Chest radiograph 2 views COMPARISON: 03/21/2024 FINDINGS: The sensitivity and specificity of the exam are moderately limited by the patient`s body habitus. Mediastinum: The mediastinum is normal in appearance. The heart silhouette is normal in size and morphology. Lung: Both lungs are unremarkable in appearance. No sign of pleural effusion seen. No pneumothorax is identified. Bone and Soft tissue: Ankylosing spondylitis of the thoracic spine noted without change. IMPRESSION: 1. No acute cardiopulmonary disease is seen. Dictated by: Aime Avila MD @ 04/01/2024 14:45:24 (Electronic Signature) CT scan - chest: Attestation: I have reviewed the pertinent imaging results. Radiologist's impression: Patient: ANGELITA COYNE Facility:?[facility] Patient ID:?[id number] Site Patient ID:?[id number]. Site :?[id number] Study:?CT-Chest Angio 95 CC ISOVUE 370-04/01/2024 3:44:07 PM Ordering Physician:Joseph Ramírez Final Report: INDICATION: Left-sided chest pain. Shortness of breath. Increased D-dimer. TECHNIQUE: CT chest pulmonary angiogram acquired with 95 cc of Isovue 370 IV contrast. COMPARISON: CT chest, abdomen and pelvis 05/18/2015. FINDINGS: No evidence of pulmonary embolus. The main pulmonary artery is normal in caliber. Mild aortic atherosclerosis. Thoracic aorta is normal in caliber. Coronary artery calcifications. Heart size is within normal limits. No pleural or pericardial effusions. No pathologic lymphadenopathy. Soft tissues of the thoracic wall are unremarkable. No pneumothorax. Central airways are patent. Left lower lobe 8 mm nodule on image 92 of series 4. Right upper lobe 10 mm nodule on image 59. Mild emphysema. Mild bibasilar atelectasis. Lungs are otherwise clear. Visualized upper abdomen is unremarkable. Degenerative changes of the spine. No acute or suspicious osseous abnormality. IMPRESSION: 1. No evidence of pulmonary embolus. 2. Right upper lobe 10 mm and left lower lobe 8 mm nodules. Follow-up chest CT in 2-3 months is recommended for further evaluation. 3. Mild emphysema and basilar atelectasis. Dictated by Martin Smith MD @ 04/01/2024 4:21:05 PM Please note that all CT scans at this facility use dose modulation, iterative reconstruction, and/or weight-based dosing when appropriate to reduce radiation dose to as low as reasonably achievable. Dictated by: Martin Smith MD @ 04/01/2024 16:21:29 (Electronic Signature) ECG Data Attestation: I personally reviewed and interpreted this ECG as follows: (Normal sinus rhythm, 77 beats per minute. Incomplete right bundle branch block, left anterior fascicular block.) Prior ECG tracings: not available for review Discharge Plan Discharge Clinical Impression: Chronic left-sided thoracic back pain, Ankylosing spondylitis of thoracic region COPD (chronic obstructive pulmonary disease) Qualifiers: COPD type: unspecified COPD Qualified Code(s): J44.9 - Chronic obstructive pulmonary disease, unspecified Patient Disposition: Home, Self-Care Condition: Stable Instructions: Thoracic Disc Herniation (ED), Thoracic Pain (ED) Additional Instructions: Add in Tylenol 1000 mg 3 times a day to see if this helps your left-sided pain. I do think that this pain might be coming from your thoracic spine. There was ankylosing spondylitis which is essentially degenerative changes in the spine that can cause pain. I have refilled the DuoNebs for your COPD. Please schedule follow-up with your primary care provider within the next few weeks to get routine refills set up of your nebs, to further discuss this chronic left-sided pain which might be thoracic radiculopathy. Activity Level: Activity as Tolerated Prescriptions: New ipratropium-albuterol 0.5 mg-3 mg(2.5 mg base)/3 mL solution for nebulization 3 ml inhalation TID Qty: 90 1RF No Action amlodipine 10 mg tablet 10 mg PO QDAY Qty: 90 3RF hydrochlorothiazide 25 mg tablet 25 mg PO .QD Qty: 90 3RF hydroxyzine HCl 25 mg tablet 25 mg PO DAILY PRN (Reason: itching) Qty: 90 3RF fluticasone propion-salmeterol 250-50 mcg/dose blister with device 1 inh inhalation BID Qty: 180 3RF ipratropium-albuterol 0.5 mg-3 mg(2.5 mg base)/3 mL solution for nebulization 3 ml inhalation QID PRNQty: 90 0RF Rx Instructions: for 3 doses lorazepam 1 mg tablet 1 mg PO QDAY PRN (Reason: insomnia) Qty: 90 1RF albuterol sulfate 90 mcg/actuation HFA aerosol inhaler 2 puff inhalation Q4-6H PRN (Reason: shortness of breath or wheezing) Qty: 8.5 3RF Follow Up/Referrals: Benoit Lyons MD [Primary Care Provider] - Stand Alone Forms: [employer] Info Instructions
--- NOTE | 2024-04-01 14:11 | CRLHL7_ITS ---
For Patients: As a result of the Century Cures Act, medical imaging exams and procedure reports are released immediately into your electronic medical record. You may view this report before your referring provider. If you have questions, please contact your health care provider. INDICATION: Shortness of breath, chronic obstructive pulmonary disease, left chest pain TECHNIQUE: Chest radiograph 2 views COMPARISON: 03/21/2024 FINDINGS: The sensitivity and specificity of the exam are moderately limited by the patient`s body habitus. Mediastinum: The mediastinum is normal in appearance. The heart silhouette is normal in size and morphology. Lung: Both lungs are unremarkable in appearance. No sign of pleural effusion seen. No pneumothorax is identified. Bone and Soft tissue: Ankylosing spondylitis of the thoracic spine noted without change. IMPRESSION: 1. No acute cardiopulmonary disease is seen. Dictated by: Aime Avila MD @ 04/01/2024 14:45:24 (Electronically Signed)
[2024-04-01 14:28] LABS: HCO3 VBG 23 mmol/L (21-28); Lactate* 1.3 mmol/L (0.5-1.9); PCO2 VBG 33 mmHG (40-50); PO2 VBG 71.9 mmHG (25-47); pH VBG 7.457 (7.32-7.43)
[2024-04-01 14:29] LABS: Basophils Percent Auto 0.6 % (0.0-3.0); Eosinophils Percent Auto 4.2 % (0.0-7.0); Hemoglobin* 18.2 gm/dL (13.5-17.5); Immature Granulocytes Pct Auto 1.1 %; Lymphocytes Percent Auto 17.8 % (20-44); Mean Corpuscular HGB Conc 33 gm/dL (32-36); Mean Corpuscular Hemoglobin 28 pg (26-34); Mean Corpuscular Volume 85 fL (80-100); Monocytes Percent Auto 8.8 % (0.0-11.0); Neutrophils Percent Auto 67.5 % (42.0-72.0); Platelet Count* 248 K/uL (140-440); RDW Coefficient of Variation % 13.8 % (11.5-15.5); Red Blood Count 6.46 m/uL (4.30-5.90); White Blood Count* 13.28 K/uL (4.50-11.00)
[2024-04-01 14:31] LABS: Slide Review Reflex No
[2024-04-01 14:33] VITALS: O2SAT 95
[2024-04-01 14:49] LABS: Albumin* 4.9 g/dL (3.3-5.0); Chloride* 103 mmol/L (96-114); Sodium* 137 mmol/L (135-149)
[2024-04-01 14:52] LABS: Alanine Aminotransferase* 146 U/L (4-50); Alkaline Phosphatase* 79 U/L (40-150); Anion Gap 12 mEq/L (7-15); Aspartate Amino Transferase* 82 U/L (12-35); Bilirubin Total* 0.9 mg/dL (0.1-1.5); Blood Urea Nitrogen* 22 mg/dL (7-30); Carbon Dioxide* 22 mmol/L (20-32); Creatinine* 0.9 mg/dL (0.5-1.5); Est. Creatinine Clearance* 58.48; Estimated Glomerular Filt Rate 90 ml/min; Glucose* 119 mg/dL (60-115); Total Protein* 8.1 g/dL (6.0-8.3)
[2024-04-01 14:53] LABS: Calcium* 9.7 mg/dL (8.4-10.6)
[2024-04-01 14:55] LABS: C Reactive Protein* 1.3 mg/dL (0.5-1.0)
[2024-04-01 14:57] LABS: D Dimer Quantitative* 0.79 ug/ml (0.00-0.50)
[2024-04-01 15:02] LABS: NT Pro B Type NatriureticPept* 25 pg/mL
[2024-04-01 15:09] LABS: Troponin I* < 0.01 ng/mL (0.01-0.04)
--- NOTE | 2024-04-01 15:15 | CRLHL7_ITS ---
For Patients: As a result of the Century Cures Act, medical imaging exams and procedure reports are released immediately into your electronic medical record. You may view this report before your referring provider. If you have questions, please contact your health care provider. INDICATION: Left-sided chest pain. Shortness of breath. Increased D-dimer. TECHNIQUE: CT chest pulmonary angiogram acquired with 95 cc of Isovue 370 IV contrast. COMPARISON: CT chest, abdomen and pelvis 05/18/2015. FINDINGS: No evidence of pulmonary embolus. The main pulmonary artery is normal in caliber. Mild aortic atherosclerosis. Thoracic aorta is normal in caliber. Coronary artery calcifications. Heart size is within normal limits. No pleural or pericardial effusions. No pathologic lymphadenopathy. Soft tissues of the thoracic wall are unremarkable. No pneumothorax. Central airways are patent. Left lower lobe 8 mm nodule on image 92 of series 4. Right upper lobe 10 mm nodule on image 59. Mild emphysema. Mild bibasilar atelectasis. Lungs are otherwise clear. Visualized upper abdomen is unremarkable. Degenerative changes of the spine. No acute or suspicious osseous abnormality. IMPRESSION: 1. No evidence of pulmonary embolus. 2. Right upper lobe 10 mm and left lower lobe 8 mm nodules. Follow-up chest CT in 2-3 months is recommended for further evaluation. 3. Mild emphysema and basilar atelectasis. Dictated by Martin Smith MD @ 04/01/2024 4:21:05 PM Please note that all CT scans at this facility use dose modulation, iterative reconstruction, and/or weight-based dosing when appropriate to reduce radiation dose to as low as reasonably achievable. Dictated by: Martin Smith MD @ 04/01/2024 16:21:29 (Electronically Signed)
--- OUTSIDE RECORDS SUMMARY | 2024-04-01 15:15 | XMS_ITS | Clinical Summary ---
Author Organization [employer] [facility] Address [place], [place] [address] Care Team Providers Care Tester Vibrator Equipment Name Role Phone Benoit Lyons MD Primary Care Provider [phone] Allergies Active Allergy Reactions Criticality Noted Date [...] Comments Blood Pressure 140/88 06/09/2020 1:46 PM GAMING TABLE OPERATOR Pulse 82 06/09/2020 1:46 PM GAMING TABLE OPERATOR Temperature - - Respiratory Rate - - Oxygen Saturation 95% 06/09/2020 1:46 PM GAMING TABLE OPERATOR Inhaled Oxygen Concentration - - Weight 111.4 kg (245 lb 8 oz) 06/09/2020 1:46 PM GAMING TABLE OPERATOR Height - - Body Mass Index - [...] COVID-19 vaccine series (1 - 2022-24 season) 4 Influenza for age 65+ 03/22/2024 Hepatitis C screening for age 18-79 Completed 06/09 Procedures Procedure Name Priority Date/Time Associated Diagnosis Comments ANTI HCV Routine 06/09/2020 2:21 PM GAMING TABLE OPERATOR Elevated liver enzymes from Last 3 Months or Most Recently Relevant to Health Maintenance Results * ANTI HCV (06/09/2020 2:21 PM GAMING TABLE OPERATOR) HEPATITIS C ANTIBODY Non-React danielle Non-React danielle 06/09/2020 10:08 PM GAMING TABLE OPERATOR [facility] Comment:Antibodies to HCV no t detected; does not exclude the possibility of exposure to HCV. Blood BLOOD SPECIMEN / Unknown Venipuncture / Unknown 06/09/2020 2:21 PM GAMING TABLE OPERATOR 06/09/2020 2:22 PM GAMING TABLE OPERATOR Kash Birmingham MD [facility] [address] [place] [address], from Last 3 Months or Most Recently Relevant to Health Maintenance Care Teams Tester Vibrator Equipment Relationship Specialty Start Date End Date Benoit Lyons MD [address] [place] [address] PCP - General Family Practice 06/09/20
[2024-04-01 16:12] VITALS: BP 140/95; PULSE 75; RESP 17; TEMP 36.2; O2SAT 93
== END 2024-04-01 17:41 | disposition home or self-care (01) ==
PROVIDERS: Emergency Provider Family Medicine; PCP Family Medicine
DX: J44.9 Chronic obstructive pulmonary disease, unspecified (principal); M45.4 Ankylosing spondylitis of thoracic region
CPT/HCPCS: 36415; 71046; 71275; 80053; 82803; 83605; 83880; 84484; 85025; 85379; 86140; 87635; 93005; 94761; 99284; 99285; Q9967

== ENCOUNTER 2024-04-09 14:12 | Outpatient (CLI) | payer MEDICARE, SELFPAY ==
--- OUTSIDE RECORDS SUMMARY | 2024-04-09 14:15 | XMS_ITS | Clinical Summary ---
Author Organization [facility] Address [place], [place] [address] Care Team Providers Care Baked Goods Stock Clerk Name Role Phone Benoit Lyons MD Primary Care Provider [phone] Allergies Active Allergy Reactions Criticality Noted Date [...] Comments Blood Pressure 140/88 06/09/2020 1:46 PM IN CLASS SPECIAL EDUCATION TEACHER Pulse 82 06/09/2020 1:46 PM IN CLASS SPECIAL EDUCATION TEACHER Temperature - - Respiratory Rate - - Oxygen Saturation 95% 06/09/2020 1:46 PM IN CLASS SPECIAL EDUCATION TEACHER Inhaled Oxygen Concentration - - Weight 111.4 kg (245 lb 8 oz) 06/09/2020 1:46 PM IN CLASS SPECIAL EDUCATION TEACHER Height - - Body Mass Index - [...] Comments ANTI HCV Routine 06/09/2020 2:21 PM IN CLASS SPECIAL EDUCATION TEACHER Elevated liver enzymes from Last 3 Months or Most Recently Relevant to Health Maintenance Results * ANTI HCV (06/09/2020 2:21 PM IN CLASS SPECIAL EDUCATION TEACHER) HEPATITIS C ANTIBODY Non-React danielle Non-React danielle 06/09/2020 10:08 PM IN CLASS SPECIAL EDUCATION TEACHER [facility] Comment:Antibodies to HCV no t detected; does not exclude the possibility of exposure to HCV. Blood BLOOD SPECIMEN / Unknown Venipuncture / Unknown 06/09/2020 2:21 PM IN CLASS SPECIAL EDUCATION TEACHER 06/09/2020 2:22 PM IN CLASS SPECIAL EDUCATION TEACHER Kash Birmingham MD [facility] [employer] [facility] [address] [place] [address], from Last 3 Months or Most Recently Relevant to Health Maintenance Care Teams Baked Goods Stock Clerk Relationship Specialty Start Date End Date Benoit Lyons MD [address] [place] [address] PCP - General Family Practice 06/09/20
== END 2024-04-09 14:13 | disposition home or self-care (01) ==
LOC: NFLDREF 14:13
PROVIDERS: PCP Family Medicine; Visit Provider Family Medicine
DX: M45.4 Ankylosing spondylitis of thoracic region (principal)
CPT/HCPCS: 86812

== ENCOUNTER 2025-01-07 13:50 | Outpatient (CLI) | payer MEDICARE, SELFPAY | END 2025-01-07 13:51 | disposition home or self-care (01) | LOC: NFLDREF 01-12 23:23 | PROVIDERS: PCP Family Medicine; Referring Provider Family Medicine; Visit Provider Family Medicine | DX: E78.5 Hyperlipidemia, unspecified (principal); I10 Essential (primary) hypertension; R21 Rash and other nonspecific skin eruption | CPT/HCPCS: 80053; 80061 ==

== ENCOUNTER 2025-02-18 13:37 | Outpatient (CLI) | payer MEDICARE, SELFPAY ==
[2025-02-18 14:07] LABS: Glucose Fasting Check 121 mg/dl (60-115)
[2025-02-18 17:21] LABS: Glucose 2 Hour 187 mg/dl (70-155)
[2025-02-18 18:11] LABS: Vitamin B12* 464 pg/mL (243-894)
== END 2025-02-18 13:38 | disposition home or self-care (01) ==
LOC: NPINS 13:38
PROVIDERS: PCP Family Medicine; Visit Provider Psychiatry & Neurology Neurology
DX: M62.838 Other muscle spasm (principal); G64 Other disorders of peripheral nervous system; R20.2 Paresthesia of skin
CPT/HCPCS: 82607; 82947; 82950; 84207; 86334

== ENCOUNTER 2025-04-15 16:14 | Outpatient (CLI) | payer MEDICARE, SELFPAY ==
--- NOTE | 2025-04-15 16:30 | CRLHL7_ITS ---
For Patients: As a result of the 21st Century Cures Act, medical imaging exams and procedure reports are released immediately into your electronic medical record. You may view this report before your referring provider. If you have questions, please contact your health care provider. 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 PET CT ordered for additional characterization. TECHNIQUE: Radiopharmaceutical: 18F-fluorodeoxyglucose (18F-FDG) Dose: 11.04 MilliCurie. Blood glucose: 105 mg/dL. Image acquisition: At approximately 60 minutes following IV tracer administration via a left hand vein, positron emission tomography was performed from the vertex of the skull to the feet. Non-contrast low-dose helical CT imaging was performed over the same range without breath-hold for attenuation correction of PET images and anatomic correlation; it is neither sufficient, nor should it be substituted for diagnostic purposes. COMPARISON: CT chest PE 04/01/2024. CT abdomen/pelvis 01/14/2023. FINDINGS: Mediastinal blood pool FDG uptake: SUVMax 3.0 (301:140, 202:139) Liver background parenchymal FDG uptake: SUVMax 3.6 (301:176, 202:175) PET Findings: Intracranial brain lesions are inadequately characterized and staged by FDG PET-CT. If there is clinical concern for intracranial metastatic disease, correlate with MRI brain with and without gadolinium contrast for assessment and characterization of intracranial lesions. Within these limitations, no gross abnormal focal increased FDG uptake intracranially. Intensely FDG avid right perihilar lung mass, measuring up to 5.7 x 3.9 Cm, in the right upper lobe SUVMax 17.8 (301:134, 202:133), abutting the right major fissure. The right lung mass extends into right hilar sherly stations, with probable right hilar sherly metastatic involvement. Intense FDG uptake is demonstrated in a right hilar sherly station SUVMax 16.1 (301:136, 202:135). A faintly FDG avid 0.8 x 0.7 cm subpleural lung nodule in the left lower lobe may be metastatic. Nodular interlobular septal thickening in the right upper lobe may represent lymphangitic carcinomatosis versus postobstructive interstitial edema. Scattered opacities in the right upper lobe with faint FDG uptake, represents either subsegmental atelectasis versus postobstructive inflammatory changes. No abnormal focal increased FDG uptake in the visualized skeleton. No evidence of FDG avid destructive osseous lesions. Tracer uptake elsewhere is physiologic. Non-PET findings: Coronary artery calcifications. Atherosclerotic calcifications of the thoracic and abdominal aorta. Fatty liver. Right renal cyst. Colonic diverticulosis. Multilevel degenerative changes in the spine. IMPRESSION: 1. Intensely FDG avid right perihilar lung mass in the right upper lobe, measuring up to 5.7 x 3.9 Cm, most likely represents a primary lung neoplasm. The mass abuts the right major fissure. Correlate with tissue sampling pathology. 2. The right lung mass extends into right hilar sherly stations, with probable right hilar sherly metastatic involvement. 3. Nodular interlobular septal thickening in the right upper lobe may represent lymphangitic carcinomatosis versus postobstructive interstitial edema. 4. Scattered opacities in the right upper lobe with faint FDG uptake, represents either subsegmental atelectasis versus postobstructive inflammatory changes. 5. A faintly FDG avid 0.8 x 0.7 cm subpleural lung nodule in the left lower lobe may be metastatic or may represent a synchronous primary lung neoplasm. 6. No evidence of FDG avid distant metastatic disease. 7. No evidence of abnormal focal increased FDG uptake in the visualized skeleton. No evidence of FDG avid destructive osseous lesions. Dictated by Alirio Hollingsworth MD @ 04/19/2025 7:27:12 AM (Electronically Signed)
== END 2025-04-15 16:15 | disposition home or self-care (01) ==
LOC: RAD 16:14
PROVIDERS: PCP Family Medicine; Visit Provider Internal Medicine Hematology & Oncology
DX: R77.9 Abnormality of plasma protein, unspecified (principal); R91.8 Other nonspecific abnormal finding of lung field
CPT/HCPCS: 78816; A9552

== ENCOUNTER 2025-04-29 14:04 | Outpatient (CLI) | payer MEDICARE, SELFPAY ==
--- NOTE | 2025-04-29 14:30 | CRLHL7_ITS ---
For Patients: As a result of the Century Cures Act, medical imaging exams and procedure reports are released immediately into your electronic medical record. You may view this report before your referring provider. If you have questions, please contact your health care provider. INDICATION: Right lung mass. COMPARISON: PET scan 04/15/2025. TECHNIQUE: Multiplanar T1, T2, FLAIR and diffusion-weighted imaging. Post gadolinium T1 weighted sequences. Gadolinium 20 cc IV FINDINGS: Moderate generalized volume loss. Scattered patchy T2/FLAIR signal hyperintensity within the white matter of both cerebral hemispheres are nonspecific and may represent chronic deep white matter small ischemic changes. No intracranial hemorrhage. Compensatory mild dilatation ventricular system. Intracranial vascular flow voids are preserved. No mass effect or midline shift. No restricted diffusion to suggest acute ischemia. No susceptibility artifact of remote hemorrhage. No abnormal enhancement or enhancing lesions within the brain parenchyma. Orbits are unremarkable. Normal appearing sella. Mild mucosal thickening of the bilateral mastoid sinuses. Remaining visualized paranasal sinuses and mastoid air cells are unremarkable. IMPRESSION: 1. No acute intracranial abnormality 2. Moderate generalized cerebral volume loss. Chronic deep white matter small vessel ischemic changes 3. No acute or chronic intracranial hemorrhage. 4. No abnormal enhancement or enhancing lesions. No intracranial metastases Dictated by Samir Meredith MD @ 05/01/2025 10:46:12 AM (Electronically Signed)
== END 2025-04-29 14:05 | disposition home or self-care (01) ==
LOC: MRI 14:04
PROVIDERS: PCP Family Medicine; Visit Provider Internal Medicine Hematology & Oncology
DX: C34.90 Malignant neoplasm of unspecified part of unspecified bronchus or lung (principal)
CPT/HCPCS: 70553; A9575

== ENCOUNTER 2025-05-10 10:08 | Outpatient (CLI) | payer MEDICARE, SELFPAY | END 2025-05-10 10:09 | disposition home or self-care (01) | LOC: NFLDREF 10:10 | PROVIDERS: PCP Family Medicine; Visit Provider Internal Medicine | DX: C34.90 Malignant neoplasm of unspecified part of unspecified bronchus or lung (principal) | CPT/HCPCS: 80053 ==

== ENCOUNTER 2025-06-03 06:37 | Day surgery (SDC) | payer MEDICARE, SELFPAY ==
[2025-06-03 07:12] VITALS: BMI 38.4
[2025-06-03 07:15] VITALS: BP 134/74; PULSE 106; RESP 20; TEMP 37.3; O2SAT 94
[2025-06-03] MEDS: LACTATED RINGERS 1000 ML 1,000 ML 100 ML IV (07:21)
[2025-06-03] MEDS: SODIUM CHLORIDE 0.9 % (FLUSH) 10 ML SYRINGE IVF (07:21)
--- NOTE | 2025-06-03 08:08 | P.GSCN_ITS ---
History of Present Illness Consult details Date Seen: 06/03/25 Consult date: 06/03/25 Narrative: The patient is a 74-year-old male who presents today for port placement. He is a patient who is following with hematology for MGUS and was also found to have a right-sided lung mass. He underwent biopsy which showed invasive carcinoma. Port placement was requested for chemotherapy administration. He states that since his lung biopsy his COPD has been much worse. He has not been able to do regular activities. He did have hemoptysis and this has improved, but now he is coughing up some phlegm. [facility] Medical History (Updated 06/03/25 @ 08:50 by Alee Figueroa MD) Insomnia ?G47.00 - Insomnia, unspecified (ICD-10) Chronic pruritus ?L29.9 - Pruritus, unspecified (ICD-10) COPD (chronic obstructive pulmonary disease) ?J44.9 - Chronic obstructive pulmonary disease, unspecified (ICD-10) HTN (hypertension) ?I10 - Essential (primary) hypertension (ICD-10) Acute prostatitis ?N41.0 - Acute prostatitis (ICD-10) Dysthymic disorder ?F34.1 - Dysthymic disorder (ICD-10) Elevated liver function tests ?R79.89 - Other specified abnormal findings of blood chemistry (ICD-10) Fasting hyperglycemia ?R73.01 - Impaired fasting glucose (ICD-10) Gastroesophageal reflux disease ?K21.9 - Gastro-esophageal reflux disease without esophagitis (ICD-10) Hyperlipidemia ?E78.5 - Hyperlipidemia, unspecified (ICD-10) Malaise and fatigue ?R53.81 - Other malaise (ICD-10) ?R53.83 - Other fatigue (ICD-10) Nonalcoholic fatty liver disease ?K76.0 - Fatty (change of) liver, not elsewhere classified (ICD-10) Obesity (08/30/11) ?E66.9 - Obesity, unspecified (ICD-10) Obstructive chronic bronchitis with exacerbation ?J44.1 - Chronic obstructive pulmonary disease with (acute) exacerbation (ICD-10) Panic attack ?F41.0 - Panic disorder [episodic paroxysmal anxiety] (ICD-10) Shortness of breath ?R06.02 - Shortness of breath (ICD-10) Tubular adenoma of colon ?D12.6 - Benign neoplasm of colon, unspecified (ICD-10) Pulmonary nodule ?R91.1 - Solitary pulmonary nodule (ICD-10) Thoracic radiculopathy ?M54.14 - Radiculopathy, thoracic region (ICD-10) Rash ?R21 - Rash and other nonspecific skin eruption (ICD-10) Facial rash ?R21 - Rash and other nonspecific skin eruption (ICD-10) MGUS (monoclonal gammopathy of unknown significance) ?D47.2 - Monoclonal gammopathy (ICD-10) Lung cancer ?C34.90 - Malignant neoplasm of unspecified part of unspecified bronchus or lung (ICD-10) Family History Father Coronary artery disease High blood pressure Grandmother Coronary artery disease Brother Alcohol dependence Kidney malignancy Social History (Updated 04/09/24 @ 13:11 by Alee Mccartney~[facility], [facility]) Narrative: Medical Problems: Prostatitis, acute Hypertension Obesity COPD (chronic obstructive pulmonary disease) Dxed 2004, on Advair Malaise and fatigue Shortness of breath Panic attack Dysthymia COPD exacerbation Elevated LFTs GERD (gastroesophageal reflux disease) HTN (hypertension) Tubular adenoma of colon Hyperlipidemia NAFLD (nonalcoholic fatty liver disease) What is your current living situation?: I presently have a place to live Problems where you live: declined to answer In the past 12 months, utilities in danger of being shut off: no In past 12 months, lack of transportation kept you from medical appts, meetings, work, or getting things needed for daily living: no In the past 12 mos, have been you worried that your food would run out before you had money to buy more?: never true In the past 12 mos, the food you bought just didn't last and you didn't have money to buy more?: declined to answer Smoking Status: Former smoker Do you use any of these nicotine containing products: None Second hand tobacco smoke exposure: No How often do you have a drink containing alcohol: monthly or less How often do you have six or more drinks on one occasion: Never AUDIT-C Alcohol total score: 1 Non-prescribed substance use: denies use Caffeine: Yes (daily coffee) How often does anyone, including family, friends and others, physically hurt you : never How often does anyone, including family, friends and others, insult or talk down to you: never How often does anyone, including family, friends and others, threaten you with harm: never How often does anyone, including family, friends and others, scream or curse at you: never service: No Meds Home Medications and Allergies Home Medications ?Medication ?Instructions ?Recorded ?Confirmed ?Type albuterol sulfate 90 mcg/actuation 2 puff inhalation Q 4-6H PRN 01/07/25 06/03/25 Rx aerosol inhaler shortness of breath or wheez ing #8.5 grams amlodipine 10 mg tablet 10 mg PO QDAY #90 tabs 01/0706/03/25 Rx fluticasone 500 mcg-salmeterol 50 1 inh inhalation Q12 H #180 ea 01/07/25 06/03/25 Rx mcg/dose blistr powdr for inhalation gabapentin 300 mg capsule 300 mg PO TID #90 caps 01/0706/03/25 Rx hydrochlorothiazide 25 mg tablet 25 mg PO .QD #90 tabs 01/07/25 06/03/25 Rx milk of magnesia PO QHS 01/07/25 05/24/25 His tory nebulizers #1 ea 01/07/25 05/10/25 Rx lorazepam 1 mg tablet 1 mg PO QDAY PRN insomnia #9 0 tabs 04/07/25 06/03/25 Rx ipratropium 0.5 mg-albuterol 3 mg 3 ml inhalation TID #270 mL 05/06/25 06/03/25 Rx (2.5 mg base)/3 mL nebulization soln acetaminophen 500 mg tablet 1,000 mg PO QID PRN 06/03/25 History (Tylenol Extra Strength) ondansetron HCl 4 mg tablet 4 mg PO Q6-8H #60 tabs 10/1306/03/25 Rx prochlorperazine maleate 5 mg 5 mg PO BID PRN nausea a nd 05/24/25 06/03/25 Rx tablet (Compazine) vomiting #60 tabs amoxicillin 875 mg-potassium 1 tab PO BID #14 tabs Rx clavulanate 125 mg tablet Allergies Allergy/AdvReac Type Severity Reaction Status Date / Time tetanus toxoid, adsorbed Allergy Mild swelling Verified 06/03/25 06:46 of arms Exam Narrative: Exam Narrative: General appearance: Alert, cooperative, and in no distress Eyes: PERRLA, eye lids clear, and sclera white HENT Head: Normocephalic Ears: External ears normal Pulmonary: Coarse breath sounds noted on the right, clear on the left, no wheezing. Cardiovascular Heart: Low-grade tachycardia but regular. Extremities: warm and well perfused Skin: Normal skin color, texture, and turgor. Neurologic: No focal deficits Psychiatric: Alert, oriented, cooperative, normal affect. Const: Vital Signs, click to edit/add: Vital Signs - 24 hr 06/03/25 07:15 Temperature 99.2 F Pulse Rate 106 H Respiratory Rate 20 Blood Pressure 134/74 Pulse Oximetry 94 Oxygen Delivery Me thod Room Air Results Labs Labs: Most recent white blood cell count was 20.3. This was yesterday. Imaging Chest x-ray: image reviewed CT scan - chest: report reviewed and image reviewed Additional studies: Portable chest x-ray shows opacities in the right upper and middle lobe, this is a change from his PET-CT on 04/15. I reviewed both images with the radiologist. While this could represent bleeding or post procedural changes from bronchoscopic lung biopsy, this could also represent pneumonia. Progress Note:A&P Assessment and plan (1) Lung cancer: Status: Acute (2) MGUS (monoclonal gammopathy of unknown significance): Status: Acute (3) Shortness of breath: Status: Acute (4) Pulmonary infiltrate: Status: Acute Plan The patient is a 74-year-old male with right-sided lung cancer who is here today for port placement. We discussed the risks and benefits of the procedure including bleeding, infection, port malfunction, blood clots and pneumothorax. He agreed to proceed. Unfortunately, after he was in the OR, I noted that he had an elevated white blood count yesterday though he does have an elevated white count at his baseline (it was much higher), he also had a low-grade fever of 99 when he came in. The constellation of this and his persistent shortness of breath and phlegm production, prompted me to obtain an x-ray prior to the procedure. This showed diffuse infiltrate in the right upper and middle lobe. I discussed with the radiologist. Certainly this could represent pneumonia. It seemed more extensive than what would be expected for post bronchoscopy change though this likely is playing a role. Given the clinical scenario pointing toward infection, I made the choice to postpone port placement. I spoke with the patient's oncologist as well as the patient and his . He is understandably frustrated. I explained that while was doing initially with sedation, I did not want to start the procedure and have him have breathing difficulties, only to find out that he had an untreated pneumonia. I explained that even if he tolerated the procedure today, it would not be safe to start chemotherapy if he has an infectious process as he could get much more ill. I w eighed the risks of starting him on steroids for COPD exacerbation, however he does not have significant wheezing, therefore I will hold off on this at this time. I stressed to the patient and his that if he is worse, he she needs to come to the emergency department to be evaluated. Clinically, he appears much better than his x-ray and labs would demonstrate, therefore I think it is safe for him to discharge home on antibiotics. He did receive a dose of Ancef this morning for surgical prophylaxis. Because of this, I will not plan on re- dosing a broader IV antibiotic, we will plan on him getting an oral antibiotic.
--- NOTE | 2025-06-03 08:08 | PM.GSPRC ---
Operative Note Date of procedure: 06/03/25 Procedure Description: After discussing the risks and benefits of the procedure, the patient signed informed consent.? The operative site was marked and the patient was brought to the operating room and placed on the operating table in supine position.? Care was taken to pad the patient's pressure points.?? The patient was then [intubated/given sedation] by anesthesia.?? The operative site was then prepped and draped in the usual sterile fashion.? A time-out was then performed. Sterile dressings were then applied. ? The patient was then woken and transported to the recovery area in stable condition. ? The patient tolerated the procedure well. Surgeon: Alee Figueroa MD
--- NOTE | 2025-06-03 08:13 | CRLHL7_ITS ---
For Patients: As a result of the Century Cures Act, medical imaging exams and procedure reports are released immediately into your electronic medical record. You may view this report before your referring provider. If you have questions, please contact your health care provider. Indication: Preop lung biopsy Technique: Chest 1 view Comparison: Chest x-ray 04/01/2024 Findings/Impression: Cardiovascular and mediastinum: Heart size and vasculature are normal in caliber and appearance. Lungs and pleural space: No pleural effusion or pneumothorax. Bilateral reticulonodular process, far more focal within the right upper and mid lung zones. Bones and soft tissues: No acute findings. Dictated by Sheng Jean MD @ 06/03/2025 8:54:31 AM (Electronically Signed)
--- NOTE | 2025-06-03 08:23 | SUR.OPER ---
Dr. Figueroa stopped the radio disc jockey as prepping shaving for procedure and wanted a CXR prior to procedure.
[2025-06-03 08:40] VITALS: BP 103/57; PULSE 83; RESP 16; TEMP 36.9; O2SAT 91
--- NOTE | 2025-06-03 08:41 | P.ANES_ITS ---
Anesthesia Charges Start Date/Time Anesthesia Start Date: 06/03/25 Anesthesia Start Time: 07:59 Stop Date/Time Anesthesia Stop Date: 06/03/25 Anesthesia Stop Time: 08:42 Coding CPT Codes CPT Codes: ANESTH VASCULAR ACCESS - 36650 ([id number]) P3 - PATIENT W/SEVERE SYS DISEASE, QK - CROZER 2-4 CNCRNT ANES PROC, QX - ROADSIDE MECHANIC SVC W/ MD MED DIRECTION
--- NOTE | 2025-06-03 08:41 | W.ANESCHARGE ---
Anesthesia Charges Start Date/Time Anesthesia Start Date: 06/03/25 Anesthesia Start Time: 07:59 Stop Date/Time Anesthesia Stop Date: 06/03/25 Anesthesia Stop Time: 08:42 Coding CPT Codes CPT Codes: ANESTH VASCULAR ACCESS - 85988 ([id number]) P3 - PATIENT W/SEVERE SYS DISEASE, QK - BOLOGNA LACER 2-4 CNCRNT ANES PROC, QX - RABBET OPERATOR SVC W/ MD MED DIRECTION
--- NOTE | 2025-06-03 08:48 | SUR.OPER ---
Procedure cancelled before incision made by surgeon.
[2025-06-03 08:55] VITALS: BP 115/61; PULSE 85; RESP 18; O2SAT 97
[2025-06-03 09:10] VITALS: BP 117/64; PULSE 84; RESP 18; O2SAT 98
[2025-06-03 09:25] VITALS: BP 128/68; PULSE 85; RESP 20; O2SAT 91
--- NOTE | 2025-06-03 09:26 | P.ANES_ITS ---
Anesthesia Charges Start Date/Time Anesthesia Start Date: 06/03/25 Anesthesia Start Time: 07:59 Stop Date/Time Anesthesia Stop Date: 06/03/25 Anesthesia Stop Time: 08:42 Summary Extremes of Age - Over 70 or under 1: MDA Coding CPT Codes CPT Codes: ANESTH VASCULAR ACCESS - 77156 ([id number]) QK - AUTOMATIC RIVETING MACHINE OPERATOR 2-4 CNCRNT ANES PROC, QX - BULL GANG SUPERVISOR SVC W/ MD MED DIRECTION, P3 - PATIENT W/SEVERE SYS DISEASE Additional Codes: Summary - Extremes of Age - Over 70 or under 1: MDA ([id number])
[2025-06-03 09:40] VITALS: BP 121/63; PULSE 80; RESP 18; TEMP 36.4; O2SAT 92
== END 2025-06-03 09:53 | disposition home or self-care (01) ==
PROVIDERS: PCP Family Medicine; Visit Provider Surgery
PROC: (CPT 36561; principal; 2025-06-03 08:00)
DX: Z53.09 Procedure and treatment not carried out because of other contraindication (principal); Z45.2 Encounter for adjustment and management of vascular access device; C34.91 Malignant neoplasm of unspecified part of right bronchus or lung; R04.2 Hemoptysis; D47.2 Monoclonal gammopathy; R06.02 Shortness of breath; D72.829 Elevated white blood cell count, unspecified; R91.8 Other nonspecific abnormal finding of lung field; J44.9 Chronic obstructive pulmonary disease, unspecified
CPT/HCPCS: 36561; 00532; 71045; 76998; 99100; C1788; J0690; J1100; J2405; J2704; J3010; J3490; J7120

== ENCOUNTER 2025-06-14 06:14 | Day surgery (SDC) | payer MEDICARE, SELFPAY ==
[2025-06-14 06:15] VITALS: BMI 37.4
[2025-06-14] MEDS: LACTATED RINGERS 1000 ML 1,000 ML 100 ML IV (06:25)
[2025-06-14 06:40] VITALS: BP 129/73; PULSE 94; RESP 20; TEMP 36.8; O2SAT 94
[2025-06-14] MEDS: SODIUM CHLORIDE 0.9 % (FLUSH) 10 ML SYRINGE IVF (06:42)
--- NOTE | 2025-06-14 07:30 | CRLHL7_ITS ---
For Patients: As a result of the Century Cures Act, medical imaging exams and procedure reports are released immediately into your electronic medical record. You may view this report before your referring provider. If you have questions, please contact your health care provider. INDICATION: Port-A-Cath placement TECHNIQUE: C-arm fluoroscopy for Port-A-Cath placement. A single C-arm spot image was obtained. Fluoroscopy time was 45.1 seconds. COMPARISON: Chest x-ray of 06/10/2025 FINDINGS: C-arm fluoroscopy for Port-A-Cath placement. Junction Port-A-Cath tip in the SVC near the cavoatrial junction. IMPRESSION: C-arm fluoroscopy for Port-A-Cath placement. Dictated by Alirio Damon MD @ 06/14/2025 10:06:08 AM (Electronically Signed)
--- NOTE | 2025-06-14 07:33 | W.PM.H&PU ---
History & Physical Update History & Physical Update H&P Reviewed and patient assessed: The following changes are noted below H&P Updates: Alirio is today for port placement. He is doing much better after a course of antibiotics. His cough is gone. He was seen by his primary care provider last week. Chest x-ray is much improved. He is ready for port placement today.
[2025-06-14] MEDS: LIDOCAINE 1% MDV 20 ML INJECTION (07:57)
[2025-06-14] MEDS: BUPIVACAINE 0.5% 30 ML 20 ML INJECTION (07:57)
[2025-06-14] MEDS: 0.9% SODIUM CHL 50 ML VIAL INJECTION (08:10)
[2025-06-14 08:39] VITALS: BP 139/82; PULSE 91; RESP 16; TEMP 36.8; O2SAT 91
--- NOTE | 2025-06-14 08:39 | CRLHL7_ITS ---
For Patients: As a result of the Century Cures Act, medical imaging exams and procedure reports are released immediately into your electronic medical record. You may view this report before your referring provider. If you have questions, please contact your health care provider. INDICATION: S/p port TECHNIQUE: Chest 1 view. COMPARISON: 06/10/2025 FINDINGS: Cardiovasculature and mediastinum: Heart size is normal. Unremarkable mediastinum. Interval placement of a left chest port catheter with proximal tubing coursing sharply superiorly and out of the field of view before coursing across the mediastinum and tip terminating at the mid superior vena cava Lungs and pleural spaces: Increasing consolidation of a right upper lobe mass like opacity. No pleural effusion. No pneumothorax. Bones and soft tissues: No significant findings. IMPRESSION: Left chest port catheter with possible kinking of the proximal tubing in the left internal jugular vein. Recommend lateral view to further assess positioning of the catheter in this region. Increasing consolidation of a right upper lobe mass like opacity. Dictated by Marge Dhillon MD @ 06/14/2025 11:09:36 AM (Electronically Signed)
--- NOTE | 2025-06-14 08:42 | P.ANES_ITS ---
Anesthesia Charges Start Date/Time Anesthesia Start Date: 06/14/25 Anesthesia Start Time: 07:32 Stop Date/Time Anesthesia Stop Date: 06/14/25 Anesthesia Stop Time: 08:41 Coding CPT Codes CPT Codes: ANESTH VASCULAR ACCESS - 87012 ([id number]) P3 - PATIENT W/SEVERE SYS DISEASE, QK - MIXED SIGNAL DESIGN ENGINEER 2-4 CNCRNT ANES PROC, QX - REPAIRER CONTROLLER TESTER SVC W/ MD MED DIRECTION
--- NOTE | 2025-06-14 08:42 | W.ANESCHARGE ---
Anesthesia Charges Start Date/Time Anesthesia Start Date: 06/14/25 Anesthesia Start Time: 07:32 Stop Date/Time Anesthesia Stop Date: 06/14/25 Anesthesia Stop Time: 08:41 Coding CPT Codes CPT Codes: ANESTH VASCULAR ACCESS - 14321 ([id number]) P3 - PATIENT W/SEVERE SYS DISEASE, QK - PLATING DEPARTMENT HELPER 2-4 CNCRNT ANES PROC, QX - MUD TRUCKER SVC W/ MD MED DIRECTION
[2025-06-14 08:45] VITALS: BP 111/78; PULSE 77; RESP 16; O2SAT 92
--- NOTE | 2025-06-14 08:47 | PM.GSPRC ---
Operative Note Date of procedure: 06/14/25 Pre-op diagnosis: Lung cancer Post-op diagnosis: same Type of Procedure: Left internal jugular port placement with ultrasound and fluoroscopic guidance Indications: The patient is a 74-year-old male who was recently diagnosed with right-sided lung cancer. Chemotherapy is planned and his oncologist requested port placement. Procedure Description: After discussing the risks and benefits of the procedure, the patient signed informed consent.? The operative site was marked and the patient was brought to the operating room and placed on the operating table in supine position.? Care was taken to pad the patient's pressure points.?? The patient was then given sedation by anesthesia.??His arms were tucked. The operative site was then prepped and draped in the usual sterile fashion.? A time-out was then performed. The patient's left internal jugular vein was visualized using ultrasound. He was placed in reverse Trendelenburg to facilitate this. Local anesthetic was injected into the skin overlying the vein. This was accessed percutaneously using ultrasound guidance. Using Seldinger technique, a guidewire was threaded through the needle. Fluoroscopy was used to confirm the wire's location in the superior vena cava. A skin melina was made around the wire. Next, local anesthetic was injected into the skin below the clavicle and along the proposed tract to the neck incision. A skin incision was then made with a 15 blade and a pocket created in the subcutaneous tissue with cautery. A tunneler was then used to thread the catheter from the chest wall pocket to the neck incision. Once this was done fluoroscopy was brought into the field. Over the wire the tract was dilated using fluoroscopy. The wire and the dilator were then removed leaving the sheath in the vein. Through this, the catheter was threaded. Using fluoroscopy, the catheter was positioned into the SVC. The catheter was noted to flush and aspirate easily. Once the catheter was position, I did draw blood per request by the patient's oncologist, after wasting to ensure no saline contamination. This was passed off the field and placed into blood collection tubes. The catheter was then connected to the port. The port was placed in the pocket and secured in place with 2 0 Prolene sutures. It was noted to flush and aspirate easily. The skin was closed with absorbable suture. Sterile dressings were applied. The port was then again accessed per request by the Cancer Care and infusion durbin. The needle and tubing were secured with a Tegaderm. Kerlix fluffs were then used to wrap and protect the tubing and needle overnight. Instrument sponge and needle counts were correct at the end of the case. The patient was woken and taken to the PACU in stable condition. ? The patient tolerated the procedure well. Findings: Left IJ PowerPort placed in the SVC. Anesthesia: GETA Surgeon: Alee Figueroa MD Estimated blood loss (mL): 5 Additional Specimen Information: Blood sample sent for testing per oncology. Condition: stable Disposition: same day
[2025-06-14 09:00] VITALS: BP 103/67; PULSE 78; RESP 18; O2SAT 92
[2025-06-14] MEDS: ACETAMINOPHEN 325 MG TABLET 650 MG PO (09:00)
[2025-06-14 09:15] VITALS: BP 114/67; PULSE 72; RESP 18; TEMP 37; O2SAT 94
--- NOTE | 2025-06-14 09:47 | SUR.OPER ---
PATIENT QUESTIONS ANSWERED SATISFACTORILY PREOPERATIVELY. PATIENT BROUGHT TO OR #4 PER CART. Patient positioned supine on OR #4 bed. The perioperative team supported arms bilaterally on arm boards. Final approval of positioning by surgeon.
--- NOTE | 2025-06-14 10:00 | P.ANES_ITS ---
Anesthesia Charges Start Date/Time Anesthesia Start Date: 06/14/25 Anesthesia Start Time: 07:32 Stop Date/Time Anesthesia Stop Date: 06/14/25 Anesthesia Stop Time: 08:41 Summary Extremes of Age - Over 70 or under 1: MDA Coding CPT Codes CPT Codes: ANESTH VASCULAR ACCESS - 33295 ([id number]) QK - CUSTOMER EXPERIENCE STRATEGIST 2-4 CNCRNT ANES PROC, QX - PROBE OPERATOR SVC W/ MD MED DIRECTION, P3 - PATIENT W/SEVERE SYS DISEASE Additional Codes: Summary - Extremes of Age - Over 70 or under 1: MDA ([id number])
== END 2025-06-14 09:30 | disposition home or self-care (01) ==
LOC: OR 06:15
PROVIDERS: PCP Family Medicine; Visit Provider Surgery
PROC: (CPT 36561; principal; 2025-06-14 07:30)
DX: Z45.2 Encounter for adjustment and management of vascular access device (principal); C34.91 Malignant neoplasm of unspecified part of right bronchus or lung
CPT/HCPCS: 36561; 00532; 71045; 76000; 76998; 99100; J2003; A9270; C1788; J0665; J0690; J1642; J2405; J2704; J3010; J3490; J7120

== ENCOUNTER 2025-06-18 08:59 | Inpatient (IN) | payer MEDICARE, SELFPAY ==
--- OUTSIDE RECORDS SUMMARY | 2025-06-02 10:26 | XMS_ITS | Encounter Summary ---
Author Organization [facility] Address [address] [place] [id number] Care Team Providers Care Sewer Repairer Name Role Phone Unavailable Primary Care Provider Unavailabl e Reason for Referral * MRI/CAT/PET Scan (Routine) - Authorized Specialty Diagnoses / Procedures Referred By Anabelle t Referred To Contact Radiology Diagnoses Malignant Neoplasm Of Lung Squamous Cell Right (HCC) Procedures CT Chest with IV Contrast Vanessa Weaver APRN C.N.P., M.S.N. [address] [place] [phone] Phone: tel: fax: [facility] Region Referral ID Status Reason Start Date Expiration Date V isits Requested Visits Authorized [id number] Authorized 06/02/2025 09/02/2026 1 1 ARYNGOLOGY REP Reason for Visit * Appointment Request (Routine) - Closed Specialty Diagnoses / Procedures Referred By Contac t Referred To Contact Radiation Oncology Diagnoses Malignant Neoplasm Of Unspecified Part Of Lung Laterality Unknown Adenocarcinoma (HCC) Odilia Ontiveros M.D. [address] [place] [address] Phone: tel: fax: Referral ID Status Reason Start Date Expiration Date Visits Re quested Visits Authorized [id number] Closed 05/25/2025 08/25/2026 1 1 Encounter Details Date Type Department Care Team (Latest Contact Info) Description 06/02/2025 10:26 AM OTOLARYNGOLOGY REP - 06/02/2025 3:21 PM OTOLARYNGOLOGY REP Hospital Encounter Department of Radiation Oncology in [place], [place] [address] [place] [phone] Salina Quinetro M.D. 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) (Primary Dx) Social History Tobacco Use Types Packs/Day Years Used Date Smoking Tobacco: Former Cigarettes 0 Q uit: 2005 Tobacco Cessation:Counseling Given: Not Answered Sex and Gender Information Value Date Recorded Sex Assigned at Not on file Legal Sex Male 6:39 PM OTOLARYNGOLOGY REP Gender Identity Not on file Sexual Orientation Not on file documented as of this encounter Last Filed Vital Signs Vital Sign Reading Time Taken Comments Blood Pressure 145/79 06/02/2025 10:30 AM OTOLARYNGOLOGY REP Pulse 97 06/02/2025 10:30 AM OTOLARYNGOLOGY REP Temperature 36.6 C (97.9 F) 06/02/2025 10:30 AM OTOLARYNGOLOGY REP Respiratory Rate - - Oxygen Saturation - - Inhaled Oxygen Concentration - - Weight 99.4 kg (219 lb 2.2 oz) 06/02/2025 10:30 AM OTOLARYNGOLOGY REP Height - - Body Mass Index 36.73 07/12/2015 9:28 AM OTOLARYNGOLOGY REP documented in this encounter Medications at Time of Discharge albuterol 90 mcg/actuation inhaler Inhale 2 puffs every 4 (four) hours as needed. 05/03/2020 amLODIPine (Norvasc) 10 mg tablet Take 1 tablet by mouth daily. 07/12/2015 fluticasone propion-salmetero L (Advair Diskus) 250-50 mcg/dose diskus inhaler Inhale 1 Inhaler 2 (two) times a day. 07/12/2015 gabapentin (Neurontin) 300 mg capsule Take 300 mg by mouth. 01/07/2025 hydroCHLOROthiazi de (HydroDiuril) 25 mg tablet Take 1 tablet by mouth daily. 07/12/2015 ipratropium-albut Mahsa (DuoNeb) 0.5-2.5 mg/3 mL nebulizer solution Inhale. LORazepam (Ativan) 1 mg tablet Take 1 tablet by mouth daily. 07/12/2015 documented as of this encounter Consult Notes * Vanessa Weaver KEV Michael, C.N.P., M.S.N. - 06/02/2025 10:30 AM CST RADIATION ONCOLOGY CONSULT NOTE SUBJECTIVE CHIEF COMPLAINT/REASON FOR VISIT REFERRING PROVIDER: Odilia Ontiveros M.D. HISTORY OF PRESENT ILLNESS Mr. Rodriguez is a 74 y.o. 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 He is here from [place], [place] and presents today for an opinion regarding the role of radiation therapy. 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 Follow-up chest CT in 2-3 months is recommended for further evaluation. 04/15/2025 Critical Imaging PET SCAN Intensely FDG avid right perihilar lung mass in the right upper lobe measuring 5.7 by 3.9 cm. Thereis also a right lung mass extending into the right hilar sherly stations with probably right hilar sherly metastatic involvement. Nodular interlobular septal thickening in the right upper lobe may represent lymphangitis carcinomatosis versus postobstructive interstitial edema. Scattered opacities in the right upper lobe with faint FDG uptake represents either subsegmental atelectasis versus postobstructive inflammatory changes. Faintly FDG avid 0.8 cm subpleural lung nodule in the left lower lobemay be metastatic or may represent synchronous primary lung neoplasm. No evidence of distant metastatic disease. No evidence of abnormal focal increased FDG uptake in visualized skeleton. 04/29/2025 Biopsy/Pathology MRI Brain No acute intracranial abnormality. Moderate generalized cerebral volume loss. Chronic deep white matter small vessel ischemic changes. No acute or chronic intracranial hemorrhage. No abnormal enhancement or enhancing lesions. No intracranial metastases. 05/13/2025 Biopsy/Pathology Biopsy LUNG, RIGHT, UPPER LOBE, MASS, FNA WITH CELL BLOCK: 1. Positive for malignancy, invasive squamous carcinoma, largely non-keratinizing 2. Ancillary testing: a. PD-L1: - Tumor Proportion Score (TPS): 0% (No PD-L1 expression, TPS less than 1%) - Tumor Cell (TC): 0% (Negative, TC less than 1%) b. NGS (lung panel): - Negative; see attached report Lymph node thoracic station 7/thoracic station 4R negative for metastatic malignancy. 05/24/[address] Ontiveros. 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 Referred to Radiation Oncology to discuss SBRT to the left lower lung nodule and possible [employer] SUPER[employer]OR to the right upper lung nodule. 06/01/2025 Tumor Board Patient's case was presented at tumor board. Suggest obtaining a diagnostic CT chest to better evaluate lymphangitic changes. The board agreed with obtaining PFTs and thoracic surgery evaluation as well as starting with chemo/immunotherapy followed either by surgery or chemo/radiation pending PFTs a nd surgery evaluation. INTERVAL HISTORY Mr. Rodriguez has been referred to us for consideration of radiotherapy options in the management of his disease. He presents in the company of his . He reports that he has been feeling poorly for quite some time, specifically as it relates to his COPD. He feels that his breathing has worsened significantly following the recent lung biopsy. Prior to the biopsy, he could walk 1 block and 1 flight of stairs and since the bronch, he cannot do either He indicates that he had significant coughing with blood-tinged secretions for approximately a week after the biopsy. He is no longer having bloodin the secretions, but still has a lot of yellow colored secretions. He also finds that he is more dyspneic following the biopsy. He can have dyspnea just with speaking. He notes he is having a port placed tomorrow and plans to start his 1st cycle of chemo immunotherapy this coming 06/07/2025. He denies any bony pain. His weight has been stable. RADIOTHERAPY HISTORY: Prior radiation therapy: No Prior cancer: NO Lupus, scleroderma, collagen vascular disease: NO Implanted medical devices: NO Current Medications[1] Medical History[2] Surgical History[3] Social History[4] Family History[5] OBJECTIVE Vitals: 06/02/25 1030 BP: 145/79 BP Location: Right arm Patient Position: Sitting Cuff Size: Regular Pulse: 97 Temp: 36.6 ??C TempSrc: Temporal Weight: 99.4 kg Physical Exam General: Alert and oriented, in no acute distress. Noted to have some dsypnea with conversational speech. Lungs: Clear, no adventitious sounds Heart: Regular rate and rhythm. Neuro: Grossly intact. DIAGNOSTICS LABS: Lab Results Component Value Date WBC 10.0 06/09/2020 HGB 17.4 06/09/2020 HCT 50.9 06/09/2020 RBC 6.01 (H) 06/09/2020 MCV 85 06/09/2020 MCH 29.0 06/09/2020 MCHC 34.2 06/09/2020 RDW 14.9 06/09/2020 MPV 10.5 06/09/2020 Lab Results Component Value Date ALT 108 (H) 06/09/2020 AST 98 (H) 06/09/2020 ALKPHOS 69 06/09/2020 BILITOT 0.7 06/09/2020 RADIOLOGICAL DATA RADIOLOGY: I personally reviewed the radiology images. PATHOLOGY: I personally reviewed the pathology findings. ASSESSMENT / PLAN #1 Clinical stage IIIA (cT3, cN1, cM0) right upper lobe squamous cell carcinoma #2 Synchronous stage IA left lower lobe lung cancer Mr. Rodriguez is a 74 y.o. male with recently diagnosed stage IIIA (T3 N1 M0) squamous cell carcinomaof the right upper lobe along with a stage IA left lower lobe synchronous primary lung cancer. Planis for initiation of the chemo immunotherapy to be followed by resection versus definitive chemoradiation. He was discussed at Lung Tumor Board on 06/01/2025. Recommendation was for obtaining a diagnostic CT chest to better evaluate lymphangitic changes. The board agreed with obtaining PFTs and thoracic surgery evaluation as well as starting with chemo/immunotherapy followed either by surgery or chemo/radiation pending PFTs and surgery evaluation. He has met with Dr. Ontiveros in Medical Oncology at [facility] and has plans in place to initiate chemo immunotherapy this coming 06/07/2025. He is having his port placed tomorrow. We reviewed the rationale behind having a port placed for chemo immunotherapy. He was counseled to follow-up with Pulmonary Medicine within the next week if his respiratory symptoms do not improve. In our consultation we discussed tumor board recommendations. PFTs are being arranged. We will arrange a CT of the chest with IV contrast to follow-up on the lymphangitic changes seen on PET-CT. We discussed the treatment paradigm and the role of concurrent chemoradiation therapy for consolidation after chemoimmunotherapy if not deemed a surgical candidate. Treatment would likely consist of dailyradiation treatments over the course of approximately 6 weeks with concurrent chemotherapy. I reviewed the rationale, logistics, risks, benefits, side effects and potential short and long-term sequelae of radiotherapy to the lung. Potential acute toxicities discussed include skin changes like erythema, fatigue, shortness of breath, cough, lung effects such as pneumonitis, and the possibility of bony/rib fractures. Late radiation reactions might include scarring of lung tissue, chronic shortnessof breath, ulceration or narrowing of the esophagus, bony fractures, and a rare risk of secondary malignancies. The logistics of radiotherapy simulation were explained in detail, discussing treatmentplanning and strategies for minimizing dose to critical structures, including patient positioning with possible breath hold, CT scanning, and planning by our radiation oncology team. Treatments are scheduled on weekdays with no weekend sessions, and management visits will be conducted during the course of treatment to monitor for and manage side effects. We also discussed possible role of Stereotactic Body Radiation Therapy (SBRT) to the synchronous early stage lung cancer in the left lower lobe. Dr. Quintero also met with patient today for consultation. Please see attestation by supervising physician for additional details and recommendations. Patient is agreeable with the above plan. All questions are answered at this time. We encouraged patient to contact us to reach out with any other questions or concerns that arise. Our desk will help set him up with the patient portal. EDUCATION Ready to learn, no apparent learning barriers were identified; learning preferences include listening. Explained diagnosis and treatment plan; patient expressed understanding of the content. The patient was given ample opportunity to ask questions and all questions were answered to their satisfaction. CONSENT Discussed the risks, benefits, alternatives, and the necessity of other members of the healthcare team participating in the procedure. All questions answered and consent given. Vanessa Weaver APRN, C.N.P., M.S.N. [1] Current Outpatient Medications: albuterol 90 mcg/actuation inhaler, Inhale 2 puffs every 4 (four) hours as needed., Disp: , Rfl: amLODIPine (Norvasc) 10 mg tablet, Take 1 tablet by mouth daily., Disp: , Rfl: fluticasone propion-salmeteroL (Advair Diskus) 250-50 mcg/dose diskus inhaler, Inhale 1 Inhaler 2 (two) times a day., Disp: , Rfl: gabapentin (Neurontin) 300 mg capsule, Take 300 mg by mouth., Disp: , Rfl: hydroCHLOROthiazide (HydroDiuril) 25 mg tablet, Take 1 tablet by mouth daily., Disp: , Rfl: ipratropium-albuteroL (DuoNeb) 0.5-2.5 mg/3 mL nebulizer solution, Inhale., Disp: , Rfl: LORazepam (Ativan) 1 mg tablet, Take 1 tablet by mouth daily., Disp: , Rfl: [2] Past Medical History: Diagnosis Date Anomaly Ear Congenital With Impaired Hearing Chronic Obstructive Pulmonary Disease (HCC) Fatty Liver Gastroesophageal Reflux Disease Hypertension Essential Primary IgG4-Related Disease (HCC) [3] Past Surgical History: Procedure Laterality Date CARPAL TUNNEL RELEASE [4] Social History Tobacco Use Smoking status: Former Current packs/day: 0.00 Types: Cigarettes Quit date: 2004 Years since quittin.8 [5] Family History Problem Relation Name Age of Onset Kidney cancer Brother Lung cancer Brother Cosigned by Salina Quintero M.D. at 06/02/2025 3:21 PM OTOLARYNGOLOGY REP ARYNGOLOGY REP ARYNGOLOGY REP Associated attestation - Salina Quintero M.D. - 06/02/2025 3:21 PM OTOLARYNGOLOGY REP RADIATION ONCOLOGY CONSULT I saw and evaluated the patient and participated in the smyth portions of the service. I reviewed thedocumentation of Ms. Vanessa Weaver APRN and agree with the findings and plan. Please see Ms. Weaver's detailed note for the patient's initial presentation and work-up. Briefly, Mr. Rodriguez is a very pleasant remote former smoker who is 74 years old and has a rapidly enlarging right upper lung to hilum biopsy proven squamous cell carcinoma, PD-L1 0%, NGS negative with a possible lymphangitic spread as well as either a metastasis in the left lower lung vs a separate primary that has not been biopsied. Pulmonary function tests have been scheduled for July 06, but his has her mammogram that day and they have to reschedule them. He has not seen thoracic surgery, but he is willing to see them on a video visit. The left lower lung nodule is stable, but was ground glass on May 18, 2015 making this more likely to be a separate synchronous non- biopsy proven lung cancer. He is having more troubles with is breathing since the bronchoscopy. I have reviewed his imaging, operative and pathology reports. On exam, he appears well. Detailed exam as per Ms. Weaver. We discussed the findings above and below in this note with the patient and his . We discussed obtaining an updated CT chest to better evaluate the lymphangitic changes. We also discussed callingDr. Vargas if he is still having difficulties with his breathing and/or that hopefully starting his treatments will help his breathing. We discussed his treatment alternatives including definitive chemo-radiotherapy vs induction chemotherapy followed by local therapy (either surgery or chemoradiotherapy). I would favor him seeing Thoracic surgery to help determine if he is a surgical candidate or not. I am concerned about the size of his right lung primary as well as the possible lymphangiticchanges. For these reasons, I agree with giving him neoadjuvant chemo-immunotherapy as suggested byDr. Ontiveros. I would favor seeing him back again after a few cycles, PFTs, and thoracic surgery input. We discussed the rationale, risks, side effects and goals of radiation therapy. We discussed the acute as well as penitentiary risks, including, but not limited to fatigue, esophagitis, rib fracture, chest wall pain, radiation pneumonitis (10- 15% risk with a 1% mortality), and cardiac risks. They understood and their questions were answered. My thanks to Sam Shepherd, [place] for the opportunity to participate in this patient's care. EDUCATION Ready to learn, no apparent learning barriers were identified; learning preferences include listening. Explained diagnosis and treatment plan; patient expressed understanding of the content. DIAGNOSIS #1 Stage IIIA (cT3 N1 M0) squamous cell carcinoma of the right upper lung, PD- L1=0%, NGS negative #2 Possible lymphangitic changes in #1 #3 Likely left lower lung cancer, cT1b N0 M0, not biopsy proven Signed by: Salina Quintero M.D. 06/02/2025 documented in this encounter Plan of Treatment Upcoming Encounters Date Type Department Care Team (Late st Contact Info) Description 07/07/2025 2:00 PM OTOLARYNGOLOGY REP Appointment Department of Pulmonary Medicine in [address] [phone] Odilia Ontiveros M.D. [address] [place] [address] Discharge Disposition: Home or Self Care Scheduled Orders Name Type Priority Associated Diagnoses Order Schedule CT Chest with IV Contrast Imaging RAD - Routine (most inpatients and all outpatients) Malignant Neoplasm Of Lung Squamous Cell Right (HCC) Expected: 06/02/2025, Expires: 09/02/2026 Creatinine with Estimated GFR Lab Routine Malignant Neoplasm Of Lung Squamous Cell Right (HCC) 1 Occurrences starting 06/02/2025 until 09/02/2026 documented as of this encounter Visit Diagnoses Diagnosis Malignant Neoplasm Of Lung Squamous Cell Right (HCC)- Primary documented in this encounter
--- OUTSIDE RECORDS SUMMARY | 2025-06-18 09:02 | XMS_ITS | Encounter Summary ---
Author Organization [facility] Address [address] [place] [address] Care Team Providers Care Fruit Packer Face And Fill Name Role Phone Unavailable Primary Care Provider Unavailabl e Encounter Details Date Type Department Care Team (Late st Contact Info) Description 06/01/2025 Tumor Board Conference Department of Radiation Oncology in [place], [place] [address] [place] [phone] Salina Quintero M.D. [address] [place] [phone] Social History Tobacco Use Types Packs/Day Years Used Date Smoking Tobacco: Former Cigarettes 0 Q uit: 2004 Sex and Gender Information Value Date Recorded Sex Assigned at Not on file Legal Sex Male 6:[address] SCAN SPECIAL PROCEDURES TECHNOLOGIST Gender Identity Not on file Sexual Orientation Not on file documented as of this encounter Miscellaneous Notes * Tumor Board Note - Salina Quintero M.D. - 06/01/2025 1:23 PM CST MULTIDISCIPLINARY TUMOR BOARD NOTE This patient's case was presented at our multidisciplinary tumor board on 06/01/2025 by Salina Quintero MD. 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 Stage: Cancer Staging Malignant Neoplasm Of Lung Squamous Cell Right (HCC) Staging form: Lung, AJCC V9 - Clinical stage from 05/26/2025: Stage IIIA (cT3, cN1, cM0) RUL -Clinical Stage, cT1b N0 M0 LLL Imaging reviewed: yes, CT chest from May 18, 2015, CT angio chest from April 01, 2024, PET/CT from April 15, 2025 Pathology reviewed: none Discussion: We reviewed his imaging and discussed that he has a large RUL squamous cell carcinoma (PD-L1=0%, NGS negative) and a synchronous LLL, non- biopsy proven lung cancer. Recommendation: The tumor board suggests obtaining a diagnostic CT chest to better evaluate lymphangitic changes. The board agreed with obtaining PFTs and thoracic surgery evaluation as well as starting with chemo/immunotherapy followed either by surgery or chemo/radiation pending PFTs and surgery e valuation. Salina Quintero M.D. Note: Tumor board recommendations are developed via multidisciplinary specialty participation with the most current information available at that time, therefore, final treatment plan is to be decided between the patient and the treating physician. SCAN SPECIAL PROCEDURES TECHNOLOGIST documented in this encounter Plan of Treatment Upcoming Encounters Date Type Department Care Team (Late st Contact Info) Description 07/07/2025 2:[address] SCAN SPECIAL PROCEDURES TECHNOLOGIST Appointment Department of Pulmonary Medicine in [address] [phone] Odilia Ontiveros M.D. [address] [place] [phone] Discharge Disposition: Home or Self Care documented as of this encounter Visit Diagnoses Not on filedocumented in this encounter
--- OUTSIDE RECORDS SUMMARY | 2025-06-18 09:02 | XMS_ITS | Clinical Summary ---
Author Organization [facility] Address [address] [place] [address] Care Team Providers Care Agronomy Instructor Name Role Phone Unavailable Primary Care Provider Unavailabl e Source Comments Patient records contain information from all sites at [facility]. For routine questions regarding patient records, call [phone] during business hours, M-F 8:00 AM - 5:00 PM Central Time. Record requests for emergency care only can be directed to [phone] at any time.[facility] Medications amLODIPine (Norvasc) 10 mg tablet Take 1 tablet by mouth daily. 07/12/2015 Active hydroCHLOROthia zide (HydroDiuril) 25 mg tablet Take 1 tablet by mouth daily. 07/12/2015 Active LORazepam (Ativan) 1 mg tablet Take 1 tablet by mouth daily. 07/12/2015 Active fluticasone propion-salmete roL (Advair Diskus) 250-50 mcg/dose diskus inhaler Inhale 1 Inhaler 2 (two) times a day. 07/12/2015 Active gabapentin (Neurontin) 300 mg capsule Take 300 mg by mouth. 01/07/2025 Active albuterol 90 mcg/actuation inhaler Inhale 2 puffs every 4 (four) hours as needed. 05/03/2020 Active ipratropium-alb uteroL (DuoNeb) 0.5-2.5 mg/3 mL nebulizer solution Inhale. 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 Malignant Neoplasm Of Lung Squamous Cell Right (HCC) (Primary Dx) 06/01/2025 Tumor Board Conference Department of Radiation Oncology in [address] [phone] Salina Quintero M.D. 06/01/2025 Orders Only Department of Pulmonary Medicine in [address] [phone] Nir Noriega, R.R.T., L.R.T. 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 (HCC) 06/01/2025 Clinical Communication Department of Pulmonary Medicine in [address] [phone] External, Referring Provider Order Request (URGENT PFT) from Last 3 Months Immunizations Immunization Administration Dates Next Due Influenza Split 04/21/2015 PCV13 04/21/2015 Family History Medical History Relation Name Comments Kidney cancer Brother 1 Lung cancer Brother 2 Relation Name Status Comments Brother 1 Brother 2 Social History Tobacco Use Types Packs/Day Years Used Date Smoking Tobacco: Former Cigarettes 0 Q uit: 2005 Tobacco Cessation:Counseling Given: Not Answered Sex and Gender Information Value Date Recorded Sex Assigned at Not on file Legal Sex Male 6:39 PM FIRE OBSERVER Gender Identity Not on file Sexual Orientation Not on file Last Filed Vital Signs Vital Sign Reading Time Taken Comments Blood Pressure 145/79 06/02/2025 10:30 AM FIRE OBSERVER Pulse 97 06/02/2025 10:30 AM FIRE OBSERVER Temperature 36.6 C (97.9 F) 06/02/2025 10:30 AM FIRE OBSERVER Respiratory Rate - - Oxygen Saturation - - Inhaled Oxygen Concentration - - Weight 99.4 kg (219 lb 2.2 oz) 06/02/2025 10:30 AM FIRE OBSERVER Height 164.5 cm (5' 4.76) 07/12/2015 9:28 AM CS T Body Mass Index 36.73 07/12/2015 9:28 AM FIRE OBSERVER Plan of Treatment Upcoming Encounters Date Type Department Care Team (Late st Contact Info) Description 07/07/2025 2:00 PM FIRE OBSERVER Appointment Department of Pulmonary Medicine in [address] [phone] Odilia Ontiveros M.D. [address] [place] [address] Discharge Disposition: Home or Self Care Health Maintenance Due Date Last Done Comments CT Colonography 1949 Cologuard 1950 Creatinine Level (Kidney Function Test) 1949 FIT 1949 Fasting Glucose for Diabetes Screening 1950 Hepatitis C Screening 1950 Office Visit for Blood Pressure Check / Re-check 1949 Potassium Level 1949 Sodium Level 1949 Lipid (Cholesterol) Screening 04/21/2015 04/21/2014 (Performed elsewhere) DTaP,Tdap,and Td Vaccines (2 - Td or Tdap) 05/23/2022 05/23/2012 Depression Screening (Annual PHQ-2) 07/22/2024 Fall Risk Screen (Annual) 07/22/2024 RSV vaccine - (32-36 weeks) or 50+ years (1 - 1-dose 75+ series) 2024 COVID-19 Vaccine ( - 2024- season) 2025 07/24/2024, 05/01/2023, 01/01/2022, Additional history exists Influenza Vaccine (#1) 2025 , 05/01/2023, 05/01/2022, Additional history exists Colonoscopy 04/21/2025 04/21/2015 (Perf ormed elsewhere) Colorectal Cancer Screening 04/21/2025 Pneumococcal vaccine (50+ years) Completed 04/18/2016, 03/21/2015, 05/18/2011 Abdominal Aortic Aneurysm (AAA) Screen Completed 06/14/2020 Zoster Vaccines Completed 10/13/2024, 04/24/2018 IPV Vaccines Aged Out No longer eligi ble based on patient's age to complete this topic Procedures Procedure Name Priority Date/Time Associated Diagnosis Comments OUTSIDE MR NEURO Routine 04/29/2025 2:35 PM CDT OUTSIDE NM PET Routine 04/15/2025 6:00 PM CDT from Last 3 Months Results * MR head/brain wo/w con-Outside MR Neuro (04/29/2025 2:35 PM CDT) Narrative [facility] - 05/26/2025 12:32 PM FIRE OBSERVER This order has been created and auto-finalized to support the import of outside images. If available, original interpretation can be found on the Media Tab in Chart Review, in Document Viewer, as an image in InfinityView or as an Addendum. If a re-interpretation or overread is required please follow defined workflow. us Provider Not In System IMG MRI PROCEDURES Final Result Performing Organization Address City/[facility]/ZIP Co de Phone Number [facility] NA * PET WHOLE BODY-Outside NM Pet (04/15/2025 6:00 PM CDT) Narrative [facility] - 05/26/2025 12:45 PM FIRE OBSERVER This order has been created and auto-finalized to support the import of outside images. If available, original interpretation can be found on the Media Tab in Chart Review, in Document Viewer, as an image in InfinityView or as an Addendum. If a re-interpretation or overread is required please follow defined workflow. us Provider Not In System IMG NM PROCEDURES Final R esult [facility] NA from Last 3 Months Insurance [facility]
--- OUTSIDE RECORDS SUMMARY | 2025-06-18 09:02 | XMS_ITS | Encounter Summary ---
Author Organization [facility] Address [address] [place] [address] Care Team Providers Care Hand Candy Molder Name Role Phone Unavailable Primary Care Provider Unavailabl e Encounter Details Date Type Department Care Team (Late st Contact Info) Description 06/01/2025 Orders Only Department of Pulmonary Medicine in [address] [phone] Nir Noriega, R.R.T., L.R.T. 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
--- OUTSIDE RECORDS SUMMARY | 2025-06-18 09:02 | XMS_ITS | Encounter Summary ---
Author Organization [facility] Address [address] [place] [address] Care Team Providers Care Cold Reduction Roller Name Role Phone Unavailable Primary Care Provider Unavailabl e Reason for Visit * Reason Onset Date Comments Order Request 06/01/2025 URGENT PFT Encounter Details Date Type Department Care Team (Late st Contact Info) Description 06/01/2025 Clinical Communication Department of Pulmonary Medicine in [address] [phone] External, Referring Provider Order Request (URGENT PFT) Social History Tobacco Use Types Packs/Day Years Used Date Smoking Tobacco: Former Cigarettes 0 Q uit: 2004 Sex and Gender Information Value Date Recorded Sex Assigned at Not on file Legal Sex Male 6:39 PM AREA FIELD PERSON Gender Identity Not on file Sexual Orientation Not on file documented as of this encounter Plan of Treatment Upcoming Encounters Date Type Department Care Team (Late st Contact Info) Description 07/07/2025 2:00 PM AREA FIELD PERSON Appointment Department of Pulmonary Medicine in [address] [phone] Odilia Ontiveros M.D. [address] [place] [phone] Discharge Disposition: Home or Self Care documented as of this encounter Visit Diagnoses Not on filedocumented in this encounter
--- OUTSIDE RECORDS SUMMARY | 2025-06-18 09:02 | XMS_ITS | Clinical Summary ---
Author Organization [facility] Address [address] [place] [id number] Care Team Providers Care Hand Fur Cleaner Name Role Phone Benoit Lyons MD Primary Care Provider [phone] Allergies Active Allergy Reactions Criticality Noted Date Comments Tetanus And Diphtheria Toxoids, Adsorbed, Adult Edema 11/01/2015 Unlisted Allergen (Include Detail In Comments) Other - Describe In Comment Field Low 11/05/2006 Hay Fever: Congestion Medications diphenhydrAMINE (BENADRYL) 25 mg tablet Bedtime Active albuterol HFA (PRO-AIR) 90 mcg/actuation inhaler Inhale 2 Puffs by mouth every 4 hours if needed. 0 Active amLODIPine (NORVASC) 10 mg tablet Take 10 mg by mouth once daily. 0 Active fluticasone propion-salmetero L (ADVAIR) 250-50 mcg/Dose diskus inhaler Inhale 1 Puff by mouth every 12 hours. 0 Active hydrOXYzine HCL (ATARAX) 25 mg tablet 0 Active hydroCHLOROthiazi de (HCTZ) 25 mg tablet Take 25 mg by mouth once daily. 0 Active ipratropium-albut Mahsa (COMBIVENT RESPIMAT) (20-100 mcg each actuation) mist inhaler Four Times Daily as needed 0 Active LORazepam (ATIVAN) 1 mg tablet Take 1 mg by mouth once daily if needed. 0 Active nicotine (NICORETTE) 2 mg gum Take 1 Each by mouth every hour while awake as needed for Nicotine Craving. 0 0 Active gabapentin (NEURONTIN) 300 mg capsule Take 300 mg by mouth three times daily. 5 Active amoxicillin 875 mg tablet Take 875 mg by mouth two times daily. 5 Active ibuprofen (ADVIL; MOTRIN) 200 mg tablet Take 400 mg by mouth three times daily. Active albuterol-ipratro pium (DUONEB) (2.5 mg-0.5 mg)/3 mL NEBULIZATION solution Inhale 1 Neb via a nebulizer three times daily. Active Active Problems Problem Noted Date Diagnosed Date Mass of upper lobe of right lung 05/13/2025 Encounters Date Type Department Care Team Description 05/13/2025 7:39 AM CDT Anesthesia Event [facility] [address], [place] [address] Greg Maguire DO 05/13/2025 7:30 AM CDT - 05/13/2025 9:01 AM CDT Surgery [facility] [address], [place] [address] Malachi Shaffer MD ENDOBRONCHIAL ULTRASOUND 05/13/2025 6:19 AM CDT - 05/13/2025 10:00 AM CDT Hospital Encounter [facility] [address] [place] [address] Malachi Shaffer MD Discharge Disposition: Home Self Care 05/12/2025 Travel 05/07/2025 11:30 AM CDT Office Visit [facility] [address] [place] [address] Akash Vargas MD Consult 05/07/2025 Telephone [facility] [place] [address] [place] [phone] Akash Vargas MD Procedure 05/06/2025 Travel 05/06/2025 Telephone [facility] [address] [place] [phone] Akash Vargas MD Appointment Reminder 04/22/2025 Telephone [facility] [place] [address] [place] [phone] Akash Vargas MD Referral from Last 3 Months Social History Tobacco Use Types Packs/Day Years Used Date Smoking Tobacco: Former Cigarettes 2 40 0 07/22/1964 - 07/22/2004 Passive Smoke Exposure: Past Smokeless Tobacco: Never Tobacco Cessation:Counseling Given: Not Answered Alcohol Use Standard Drinks/Week Comments Never 0 (1 standard drink = 0.6 oz pur e alcohol) Social Connections Answer Date Recorded Frequency of Communication with Friends and Fami ly Not on file 07/22/2021 Alcohol Use Answer Date Recorded How often do you have a drink containing alcohol ? 0 05/07/2025 How many drinks containing a lcohol do you have on a typical day when you are drinking? 0 05/07/2025 How often do you have five or more drinks on one occasion? 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 Gender Identity Not on file Sexual Orientation Not on file Obstetrics History Last Filed Vital Signs Vital Sign Reading Time Taken Comments Blood Pressure 122/71 05/13/2025 10:00 AM CDT Pulse 66 05/13/2025 10:00 AM CDT Temperature 36.4 C (97.6 F) 05/13/2025 8:52 AM CDT Respiratory Rate 17 05/13/2025 10:00 AM CDT Oxygen Saturation 94% 05/13/2025 10:00 AM CDT Inhaled Oxygen Concentration - - Weight 102.2 kg (225 lb 6 oz) 05/12/2025 10:00 A M CDT Height 162.8 cm (5' 4.09) 05/12/2025 10:00 AM C DT Body Mass Index 38.58 05/12/2025 10:00 AM CDT Plan of Treatment Health Maintenance Due Date Last Done Comments Tetanus booster 1960 Depression screening for age 12+ 1961 Colonoscopy through age 75 1994 Lipids for age 45-75 1994 Pneumococcal series for age 50+ (1 of 1 - PCV) 10/01/1999 Zoster (shingles) series for age 50+ (1 of 2) 10/01/1999 Medicare Wellness for age 65+ 2014 RSV vaccine for adults or (1 - 1-dose 75+ series) 2024 Influenza Vaccine (#1) 2025 BMI (ht and wt on same day) for age 18+ 05/07/2026 05/07/2025 Hepatitis C screening for ag e 18-79 Completed 06/09/2020 Hepatitis B series for 19+ Aged Out N o longer eligible based on patient's age to complete this topic Procedures Procedure Name Priority Date/Time Associated Diagnosis Comments FOCUS Timed 05/13/2025 8:19 AM CDT PATH NON AGILE PROJECT MANAGER CYTOLOGY Today 05/13/2025 8:00 AM CDT ENDOTRACHEAL TUBE Routine 05/13/2025 7:4 9 AM CDT ENDOBRONCHIAL ULTRASOUND 05/13/2025 7:[address] of the chest BRONCHOSCOPY 05/13/2025 7:26 AM CDT SCAN CORRESP-LABORATORY RESULTS 05/11/2025 10:40 AM CDT ANTI HCV Routine 06/09/2020 2:21 PM ROOF DESIGNER Elevated liver enzymes from Last 3 Months or Most Recently Relevant to Health Maintenance Results * FOCUS (05/13/2025 8:19 AM CDT) Aspirate (Right Upper Lobe Lung) 05/13/2025 8:19 AM CDT 05/14/2025 4:27 PM CDT us Malachi Shaffer MD LABORATORY Final Res ult [facility] [address] [place] [address], * PATH NON AGILE PROJECT MANAGER CYTOLOGY (05/13/2025 8:00 AM CDT) Case Report Medical Cytology Report Case: [id number] Authorizing Provider: Malachi Shaffer MD Collected: 05/13/2025 0800 Ordering Location: [facility] Received: 05/13/2025 0853 [facility] Pathologist: Krishna Yuan MD Specimens: A) - Station 7 Subcarinal Lymph Node B) - Station 4R Lower Paratracheal Lymph Node C) - Right Upper Lobe Lung, mass 11:16 AM CDT [facility] Amendment 05/17/2025 - Amendme nt issued to report PD-L1 results. See final diagnosis section. 05/21/2025 - Amendment to report [facility] Lung Targeted Next Generation Sequencing results. Please see attached scanned report and updated diagnosis. 11:16 AM CDT [facility] Final Diagnosis A) LYMPH NODE, THORACIC STATION 7, FNA WITH CELL BLOCK: 1. Negative for metastatic malignancy 2. Lymphocytes, consistent with sampled lymph node B) LYMPH NODE, THORACIC STATION 4R, RIGHT LOWER PARATRACHEAL, FNA WITH CELL BLOCK: 1. Negative for metastatic malignancy 2. Lymphocytes, consistent with sampled lymph node C) LUNG, RIGHT, UPPER LOBE, MASS, FNA WITH CELL BLOCK: 1. Positive for malignancy, invasive squamous carcinoma, largely non-keratinizing 2. Ancillary testing: a. PD-L1: - Tumor Proportion Score (TPS): 0% (No PD-L1 expression, TPS less than 1%) - Tumor Cell (TC): 0% (Negative, TC less than 1%) b. NGS (lung panel): - Negative; see attached report 11:16 AM CDT [facility] Amendment electronically signed by Jeanine Earl MD on 05/21/2025 at 1116 CDT Amendment electronically signed by Ender Florence MD on 05/17/2025 at 1534 CDT at 1613 CDT Comment LUNG ANCILLARY TESTING PROTOCOL This patient's sample meets [facility] Committee criteria* for reflex testing or such testing has been requested by the ordering physician. Testing will be performed, and the results will be communicated in an amendment to this report. There is no need to call to order the above tests. If there is a need for ancillary tests other than these, please contact the [facility] ([phone]). Slides available for [facility] NGS testing: C1-7 or C1-6 Blocks available for [facility] NGS testing: None Blocks available for tests using immunostains and/or FISH (requiring 100 cells): C2 Blocks available for send out (outside vendor) testing requiring 5 x 5 mm of tumor: None *[facility] Committee reflex testing criteria: Stage IV pulmonary non-small cell carcinoma OR Tumor size >= 4 cm, or lymph node involvement, pulmonary non-small cell carcinoma, neoadjuvant setting OR Resected stage IB - IIIB pulmonary non-small cell carcinoma, adjuvant setting (if not previously performed) - [facility] NGS panel (EGFR, ALK, ROS1, RET, MET, KRAS, BRAF, HRAS, NRAS, ERBB2, NTRK1/2/3) - [facility] PD-L1 SP263 - If RNA NGS fusion analysis fails, FISH for ALK and ROS1 fusion will be attempted Refuse Laborer slides from C seen in consultation with Dr. Florence. 5 11:16 AM [facility] Clinical Information Patient with reported 5.7 cm right upper lobe lung mass. Former smoker (80 pack years) No reported prior history of malignancy 5 11:16 AM [facility] Gross Description A) Received identified as station 7 subcarinal lymph node, is a fine needle aspirate specimen. The specimen consists of: -3 Air dried slides -1 CytoLyt vial -0 RPMI vials -1 Formalin vial The following were prepared from the specimen submitted: -3 Diff-Quik stained slides -1 Papanicolaou stained ThinPrep slide -1 H&E stained cell block slide A2: Cell block material was removed from the patient and placed directly in formalin at 0740 on 05/13/25 and fixed in formalin at least 6 hours and no more than 72 hours. B) Received identified as station 4R lower paratracheal lymph node, is a fine needle aspirate specimen. The specimen consists of: -3 Air dried slides -1 CytoLyt vial -0 RPMI vials -1 Formalin vial The following were prepared from the specimen submitted: -3 Diff-Quik stained slides -1 Papanicolaou stained ThinPrep slide -1 H&E stained cell block slide B2: Cell block material was removed from the patient and placed directly in formalin at 0818 on 05/13/25 and fixed in formalin at least 6 hours and no more than 72 hours. C) Received identified as RUL Lung mass, is a fine needle aspirate specimen. The specimen consists of: -9 Air dried slides -1 CytoLyt vial -0 RPMI vials -1 Formalin vial The following were prepared from the specimen submitted: -9 Diff-Quik stained slides -1 Papanicolaou stained ThinPrep slide -1 H&E stained cell block slide C2: Cell block material was removed from the patient and placed directly in formalin at 0834 on 05/13/25 and fixed in formalin at least 6 hours and no more than 72 hours. 11:16 AM [facility] Adequacy Assessment A) cmm assessed adequacy from the air-dried smears at the time of the procedure with an impression of Adequate. 11:16 AM [facility] Microscopic Description Specimen adequacy: Adequate for interpretation. All slides were reviewed. The microscopic appearance substantiates the diagnosis. IHC studies (block C2) are interpreted in the malignant cells as follows: TTF1... Negative Napsin... Negative p40... Positive The findings support the morphologic impression of a squamous phenotype. 11:16 AM [facility] Molecular Diagnostics Summary Preanalytical microdissection of tissue/cytology slides for Next Generation Sequencing was performed according to laboratory protocol as follows: Microscopic examination was performed by a pathologist, Dr. Yuan, to determine specimen adequacy and identify areas of tumor for isolation. Areas of tumor selected and marked by the pathologist were manually harvested by a helper animal laboratory for nucleic acid extraction. 11:16 AM [facility] Additional Information Cytology is screened at [facility] - [address], [place] [address] and [facility] - [address] [place] [address] and [facility] - [address] [place] [address] Interpreted at [facility] - [address], [place] [address] Immunohistochemistry controls were reviewed and approved as appropriate by the pathologist during this examination. TEST PERFORMED: PD-L1 (SP263) ANALYSIS BY IMMUNOHISTOCHEMISTRY MATERIALS AND METHODS: - Adequate number of tumor cells are present on the re-cut H&E stain section. Minimum number of tumor cells required is 100 viable tumor cells - The positive and negative control tissue demonstrate appropriate staining TESTING INFORMATION FOR PD-L1 ANALYSIS: PD-L1 assayed by immunohistochemistry with microscopy, following tissue fixation in 10% neutral buffered formalin. Tissue sections are incubated with a PD-L1 rabbit monoclonal antibody (exoro system PD-L1 SP263 assay), performed on the exoro system BenchMark ULTRA instrument and visualized with OptiView DAB IHC Detection kit and OptiView Amplification Kit. PD-L1 22C3 Tumor Proportion Score (TPS) Interpretation Guidelines for non-small cell lung carcinoma: Tumor Proportion Score is determined by manual morphometry evaluating the number of tumor cells with partial or complete membranous staining (1+ intensity or more) divided by the total number of viable tumor cells. TPS scoring cut-offs: TPS less than 1% (No PD-L1 expression) TPS greater than or equal to 1% and less than 50% (PD-L1 Expression) TPS greater than or equal to 50% (High PD-L1 expression) Tumor Cell (TC) Interpretation Guidelines for non-small cell lung carcinoma: PD-L1 SP263 Tumor cell Score (TC) is determined by manual morphometry, evaluating the percentage of tumor cells (%TC) with any membrane staining above the background. TC scoring cut-offs: TC less than 1% (Negative) TC greater than or equal to 1% (Expression) This Conde SP263 immunohistochemical antibody assay is considered a laboratory developed test for patients with non-small cell lung cancer who are being considered for treatment with atezolizumab. This Conde SP263 immunohistochemical antibody assay is considered a laboratory developed test for patients with non-small cell lung carcinoma who are being considered for treatment with pembrolizumab. This SP263 assay has been validated against the FDA approved PharmDX 22C3 assay. The performance of this assay has not been validated on decalcified specimens. Results on decalcified specimens should be interpreted with caution, given the likelihood of a false negative result on decalcified specimens. References N Engl J Med 2020; 383:2721-5680 10.1056/[id number] J Thorac Oncol 2018;13(3):367-76 https://doi.org/10.101 6/j.jtho.2017.11.112 J Thorac Oncol 2018;13(9):1302-11 https://doi.org/10.101 6/j.jtho.2018.05.013 J Thorac Oncol 2017;12(11):1654-63 https://doi.org /10.1016/j.jtho.2017.0 7.031 Am J Clin Oncol 202;39(15)suppl:8500 10.1200/JCO.202.39.1 5_suppl.8500 Disclaimer Support for the interpretation of this case may have included the use of immunohistochemistry and/or in situ hybridization tests that were performed by [facility] and whose performance characteristics were evaluated by pathologists from [facility]. These tests have not been cleared or approved by the U.S. Food and Drug Administration. These tests are used for clinical purposes and should not be regarded as investigational or for research. This laboratory is certified under the Clinical Laboratory Improvement Amendments of 1988 (CLIA) as qualified to perform high complexity clinical laboratory testing. 11:16 AM CDT [facility] Aspirate (Station 7 Subcarinal Lymph Node) 05/13/2025 8:00 AM CDT 05/13/2025 8:53 AM CDT Specimen obtained by aspiration (specimen) (Station 4R Lower Paratracheal Lymph Node) 05/13/2025 8:08 AM CDT 05/13/2025 8:53 AM CDT Specimen obtained by aspiration (specimen) (Right Upper Lobe Lung) 05/13/2025 8:19 AM CDT 05/13/2025 8:53 AM CDT us Malachi Shaffer MD PATHOLOGY/CYTOLOGY Edited Result - Final [facility] [address] [place] [address], [place] * HCHG TUBE PR1 (05/13/2025 7:49 AM CDT) Narrative Rafy Oscar CRNA - 05/13/2025 7:49 AM CDT Rafy Oscar CRNA 05/13/2025 7:50 AM Procedure: ETT Patient location during procedure: OR ETT Properties Mask Ventilation: easy Type: straight Tube Size: 8.5 mm Laryngoscope Blade: Mac Blade Size: 4 Cormack-Lehane Grade View: 3 Insertion Attempts: 1 Placement Verification: auscultation and end tidal CO2 Secured at: 21 Measured From: lips Difficulty: 0 (not difficult) us Greg Marvin Maguire DO ANESTHESIA PX NOTE ORDMiguelangel CALDWELL Final Result * BRONCHOSCOPY (05/13/2025 7:26 AM CDT) 05/13/2025 7:26 AM CDT Narrative Transcriptions Malacih Shaffer MD - 05/13/2025 8:51 AM CDT [facility] Patient Name: Alirio Rodriguez Procedure Date: 05/13/2025 Gender: Male Date of : 1950 Admit Type: Ambulatory Instrument Name: EBUS [id number],BRONCH [id number] Procedure: Bronchoscopy Proceduralist: Malachi Shaffer Referring MD: Akash Vargas MD Indications/Pre-Op Diagnosis: Right upper lobe mass, Adenopathy Procedure Description: Flexible bronchoscopy with airway inspection, EBUS TBNA. Theendoscope [id number] was used. The BRONCH [id number] was alsoused. Estimated Blood Loss & Specimen: Estimated blood loss was minimal. Specimen collected: Yes and sent to Laboratory Findings: Procedure description: Indication(s): Adenopathy R59.9 Lung mass R91.8 Bronchoscopist: Malachi Shaffer MD Sedation: General anesthesia Informed consent for the procedure was obtained. Timeout wasperformed and universal protocol was followed. Patient was sedated via general anesthesia and intubated with ETT. Bronchoscope was advanced via ETT adaptor. Airway exam was performed. Endobronchial tumor was seen obstructingthe RUL bronchus. Airways were otherwise anatomically normal. Scant thick clear mucus. Switched to EBUS scope. Station 11L lymph node measured < 5mm and was not biopsied. Station 4L lymph node measured < 5mm and was not biopsied. Station 7 lymph node measured approximately 5 mm. EBUS TBNA was performed x3 passes. Station 4R lymph node measured approximately 8 mm. EBUS TBNA was performed x3 passes. The RUL mass measured >2cm on ultrasound. EBUS TBNA was performed x9 passes. Needle(s) used: ViziShot 22G. FREDERIC determined the obtained material was adequate for analysis. Switched back to regular flexible bronchoscope. Hemostasis was confirmed and pulmonary toilet was repeated.Bronchoscope was withdrawn. Patient tolerated the procedure well with no immediate complications. Anesthesia reversed. Transferred to holding in stable condition. PreOp Diagnosis: As above PostOp Diagnosis: Same Estimated Blood Loss: Less than 50cc Impression/Post-Op Diagonsis: - Right upper lobe mass - Adenopathy Recommendation: - Await biopsy results. Malachi Shaffer, 05/13/2025 8:51:37 AM This report has been signed electronically. Note Initiated On: 05/13/2025 7:26 AM us Malachi Shaffer MD PROCEDURE ORD Final Res ult * SCAN CORRESP-LABORATORY RESULTS (05/11/2025 10:40 AM CDT) Narrative 05/11/2025 10:40 AM CDT Ordered by an unspecified provider. us Other Clinical Staff OTHER Final Resul t * ANTI HCV (06/09/2020 2:21 PM ROOF DESIGNER) HEPATITIS C ANTIBODY Non-React danielle Non-React danielle 06/09/2020 10:08 PM ROOF DESIGNER [facility] Comment:Antibodies to HCV no t detected; does not exclude the possibility of exposure to HCV. Blood BLOOD SPECIMEN / Unknown Venipuncture / Unknown 06/09/2020 2:21 PM ROOF DESIGNER 06/09/2020 2:22 PM ROOF DESIGNER us Kash Birmingham MD SEND OUTS Final Res ult [facility] [address] [place] [address], [place] from Last 3 Months or Most Recently Relevant to Health Maintenance Insurance BLUE CROSS MEDICARE ADVANTAGE MR MEDICARE PART A HB ONLY Advance Directives * Full Code (Latest Code Status on File) Date Activated Date Inactivated Comments 05/13/2025 6:42 AM 05/13/2025 12:57 PM Question Answer Comments Code Status Discussion: Unable to Assess Preferences, Provider to review later Care Teams Hand Fur Cleaner Relationship Specialty Start Date End Date Benoit Lyons MD [address] [place] [phone] PCP - General Family Practice 06/09/20
[2025-06-18 09:05] VITALS: BP 127/74; PULSE 103; RESP 30; TEMP 37.1; O2SAT 94; BMI 36.0
--- NOTE | 2025-06-18 09:28 | CRLHL7_ITS ---
For Patients: As a result of the 21st Century Cures Act, medical imaging exams and procedure reports are released immediately into your electronic medical record. You may view this report before your referring provider. If you have questions, please contact your health care provider. INDICATION: Lung cancer, shortness of breath, cough. COMPARISON: Chest radiograph 04/01/2024, PET-CT 04/15/2025 TECHNIQUE: CT angiogram chest with contrast, pulmonary embolism protocol. Multiplanar axial, coronal, and sagittal reformats are included. MIP images to improve detection of pulmonary emboli are included. Intravenous contrast: 95 mL Isovue 370. FINDINGS: PE: Well-timed contrast bolus. No pulmonary emboli. Normal caliber main pulmonary artery. Normal sized right heart chambers. No reflux of contrast below the diaphragm. Airway: Expiratory appearance of the airway. Lungs: The right upper lobe mass measures 7.5 x 7.5 cm on series 4, image 65. Previously measured 4.2 x 4.9 cm on the PET-CT from 04/15/2025. There is some adjacent subsolid and ground-glass opacification. No new area of pneumonia seen. Subpleural left lower lobe nodule measures 8 millimeters, unchanged. Centrilobular emphysema. Pleura: No pleural effusion. No pneumothorax. Lymph nodes: Enlarged right hilar lymph node measures 1.4 x 1.7 cm on series 4, image 97. Enlarged right lower paratracheal lymph node measures 2.3 x 1.4 cm on series 4, image 63. Right upper paratracheal lymph node measures 1.1 x 1.0 cm on series 4, image 42. All of these lymph nodes appear larger than the recent PET-CT. Mediastinum: No pneumomediastinum. No mass. Heart and great vessels: No pericardial effusion. Normal cardiac chamber size. Scattered atherosclerotic plaques. No aortic aneurysm. There is a left IJ chest port with the distal tip obscured by the contrast bolus. Chest wall: Normal. No masses. Upper abdomen: Normal. Bones: No fractures. No focal bone lesions. Thoracic DISH. IMPRESSION: 1. No pulmonary embolism. 2. Significant growth of the right upper lobe mass, now 7.5 cm. 3. Enlarging right paratracheal and right hilar adenopathy. 1 Please note that all CT scans at this facility use dose modulation, iterative reconstruction, and/or weight-based dosing when appropriate to reduce radiation dose to as low as reasonably achievable. Dictated by Annemarie Sue MD @ 06/18/2025 10:53:27 AM (Electronically Signed)
--- NOTE | 2025-06-18 09:31 | ED.SOB ---
HPI - SOB/Dyspnea General Chief Complaint: Shortness of Breath/Dyspnea Stated Complaint: COPD - SOB - Time Seen by Provider: 06/18/25 09:15 History of Present Illness HPI Narrative: This 74-year-old male comes in reporting cough and shortness of breath. He has history of COPD and a lung cancer. He had an x-ray done few days ago. He is taking inhaled steroid and albuterol without much relief. He states that he has been coughing with lots of productive sputum and thinks that he has a pneumonia. He states that he has not slept the last 2 nights because of discomfort with work of breathing and persistent coughing. Related Data Home Medications ?Medication ?Instructions ?Recorded ?Confirmed milk of magnesia PO QHS 01/07/25 06/10/25 acetaminophen 500 mg tablet 1,000 mg PO QID PRN 05/24/25 06/15/25 (Tylenol Extra Strength) amlodipine 10 mg tablet 10 mg PO DAILY 06/18/25 06/18/25 hydrochlorothiazide 25 mg tablet 25 mg PO DAILY 06/18/25 06/18/25 lorazepam 1 mg tablet 1 mg PO HS PRN insomnia 06/18/25 06/18/25 Previous Rx's ?Medication ?Instructions ?Recorded albuterol sulfate 90 mcg/actuation 2 puff inhalation Q4-6H PRN 01/07/25 aerosol inhaler shortness of breath or wheezing #8.5 grams fluticasone 500 mcg-salmeterol 50 1 inh inhalation Q12H #180 ea 01/07/25 mcg/dose blistr powdr for inhalation gabapentin 300 mg capsule 300 mg PO TID #90 caps 01/07/25 nebulizers #1 ea 01/07/25 ipratropium 0.5 mg-albuterol 3 mg 3 ml inhalation TID #270 mL 05/06/25 (2.5 mg base)/3 mL nebulization soln ondansetron HCl 4 mg tablet 4 mg PO Q6-8H #60 tabs 05/24/25 prochlorperazine maleate 5 mg 5 mg PO BID PRN nausea and 05/24/25 tablet (Compazine) vomiting #60 tabs Allergies Allergy/AdvReac Type Severity Reaction Status Date / Time tetanus toxoid, adsorbed Allergy Mild swelling Verified 06/15/25 10:24 of arms Review of Systems Status of ROS: Reports: 10 or more systems reviewed and unremarkable except as noted in History and below Narrative: Constitutional: No fevers, no weight gain or loss. Eyes: No discharge. No vision changes. HENT: No congestion, no sore throat, no ear pain. Cardiovascular: No chest pain, no palpitations. Respiratory: Shortness of breath and productive cough with mucus like sputum. Gastrointestinal: No abdominal pain, no vomiting, no diarrhea. Genitourinary: No dysuria, no hematuria. Musculoskeletal: Normal range of motion. Skin: No rashes, no pruritis. Neurological: No dizziness, weakness, sensory change, speech change. Endo/Heme/Allergies: No bruising or bleeding. No polydipsia. Pysch: no suicidality, no anxiety. Insomnia despite taking Ativan and Benadryl. All other systems reviewed and are negative. [facility] Medical History (Updated 06/18/25 @ 12:33 by Nir Schmidt MD) Encounter for preoperative assessment ?Z01.818 - Encounter for other preprocedural examination (ICD-10) Insomnia ?G47.00 - Insomnia, unspecified (ICD-10) Chronic pruritus ?L29.9 - Pruritus, unspecified (ICD-10) COPD (chronic obstructive pulmonary disease) ?J44.9 - Chronic obstructive pulmonary disease, unspecified (ICD-10) HTN (hypertension) ?I10 - Essential (primary) hypertension (ICD-10) Acute prostatitis ?N41.0 - Acute prostatitis (ICD-10) Dysthymic disorder ?F34.1 - Dysthymic disorder (ICD-10) Elevated liver function tests ?R79.89 - Other specified abnormal findings of blood chemistry (ICD-10) Fasting hyperglycemia ?R73.01 - Impaired fasting glucose (ICD-10) Gastroesophageal reflux disease ?K21.9 - Gastro-esophageal reflux disease without esophagitis (ICD-10) Hyperlipidemia ?E78.5 - Hyperlipidemia, unspecified (ICD-10) Malaise and fatigue ?R53.81 - Other malaise (ICD-10) ?R53.83 - Other fatigue (ICD-10) Nonalcoholic fatty liver disease ?K76.0 - Fatty (change of) liver, not elsewhere classified (ICD-10) Obesity (08/30/11) ?E66.9 - Obesity, unspecified (ICD-10) Obstructive chronic bronchitis with exacerbation ?J44.1 - Chronic obstructive pulmonary disease with (acute) exacerbation (ICD-10) Panic attack ?F41.0 - Panic disorder [episodic paroxysmal anxiety] (ICD-10) Shortness of breath ?R06.02 - Shortness of breath (ICD-10) Tubular adenoma of colon ?D12.6 - Benign neoplasm of colon, unspecified (ICD-10) Pulmonary nodule ?R91.1 - Solitary pulmonary nodule (ICD-10) Thoracic radiculopathy ?M54.14 - Radiculopathy, thoracic region (ICD-10) Rash ?R21 - Rash and other nonspecific skin eruption (ICD-10) Facial rash ?R21 - Rash and other nonspecific skin eruption (ICD-10) MGUS (monoclonal gammopathy of unknown significance) ?D47.2 - Monoclonal gammopathy (ICD-10) Lung cancer ?C34.90 - Malignant neoplasm of unspecified part of unspecified bronchus or lung (ICD-10) Family History Father Coronary artery disease High blood pressure Grandmother Coronary artery disease Brother Alcohol dependence Kidney malignancy Social History (Updated 04/09/24 @ 13:11 by Alee Mccartney~[facility], [facility]) Narrative: Medical Problems: Prostatitis, acute Hypertension Obesity COPD (chronic obstructive pulmonary disease) Dxed 2004, on Advair Malaise and fatigue Shortness of breath Panic attack Dysthymia COPD exacerbation Elevated LFTs GERD (gastroesophageal reflux disease) HTN (hypertension) Tubular adenoma of colon Hyperlipidemia NAFLD (nonalcoholic fatty liver disease) What is your current living situation?: I presently have a place to live Problems where you live: declined to answer In the past 12 months, utilities in danger of being shut off: no In past 12 months, lack of transportation kept you from medical appts, meetings, work, or getting things needed for daily living: no In the past 12 mos, have been you worried that your food would run out before you had money to buy more?: never true In the past 12 mos, the food you bought just didn't last and you didn't have money to buy more?: declined to answer Smoking Status: Former smoker Do you use any of these nicotine containing products: None Second hand tobacco smoke exposure: No How often do you have a drink containing alcohol: monthly or less How often do you have six or more drinks on one occasion: Never AUDIT-C Alcohol total score: 1 Non-prescribed substance use: denies use Caffeine: Yes (daily coffee) How often does anyone, including family, friends and others, physically hurt you: never How often does anyone, including family, friends and others, insult or talk down to you: never How often does anyone, including family, friends and others, threaten you with harm: never How often does anyone, including family, friends and others, scream or curse at you: never service: No Exam Narrative: Exam Narrative: Constitutional: Well-developed, well-nourished, no acute distress. HEENT: Normocephalic, atraumatic. Neck: Normal range of motion. Nontender. Supple. Heart: Regular. No murmurs. Normal rate. Intact distal pulses. Lungs: Clear to auscultation. No chest discomfort. No wheezes, rhonchi, or rales. Increased respiratory rate. No obvious use of accessory muscles for breathing. He prefers to be in an upright position. Abdomen: Normal bowel sounds. Nontender. No rebound tenderness. Genitalia: Deferred. Back: No midline tenderness. Normal range of motion. Extremities: Normal range of motion. No injury. Skin: Intact. No rash. Warm. No erythema or pallor. Neurologic: No altered sensation. No weakness. Alert and oriented. Psychiatric: No suicidality. No anxiety or depression. No insomnia. Nursing notes and vitals signs are reviewed. Const: Vital Signs, click to edit/add: Vital Signs - 24 hr 06/18/25 09:05 Temperature 98.7 F Pulse Rate [Pulse Oximeter] 103 H Respiratory Rate 30 H Blood Pressure [Ri ght Upper Arm] 127/74 Pulse Oximetry 94 Oxygen Delivery Me thod Room Air Course Vital Signs Vital signs: Initial Vital Signs Temperature 98.7 F 06/18/25 09:05 Temperature Source Temporal Artery Scan 06/18/25 09:05 Pulse Rate 103 H 06/18/25 09:05 Respiratory Rate 30 H 06/18/25 09:05 Blood Pressure 127/74 06/18/25 09:05 Blood Pressure Mean 91 06/18/25 09:05 Pulse Oximetry 94 06/18/25 09:05 Oxygen Delivery Method Room Air 06/18/25 09:05 Vital Signs Temperature 98.7 F 06/18/25 09:05 Pulse Rate 103 H 06/18/25 09:05 Respiratory Rate 30 H 06/18/25 09:05 Blood Pressure 127/74 06/18/25 09:05 Pulse Oximetry 94 06/18/25 09:05 Oxygen Delivery Method Room Air 06/18/25 09:05 Temperature 98.7 F 06/18/25 09:05 Pulse Rate 103 H 06/18/25 09:05 Respiratory Rate 30 H 06/18/25 09:05 Blood Pressure 127/74 06/18/25 09:05 Pulse Oximetry 94 06/18/25 09:05 Oxygen Delivery Method Room Air 06/18/25 09:05 Medications Administered Medications: Discontinued Medications Generic Name Dose Route Start Last Admin Trade Name Freq PRN Reason Stop Dose Admin Albuterol/Ipratropium 1 neb 06/18/25 09:27 06/18/25 09:38 Iprat-Albut 0.5-2.5 Mg/3 Ml Neb IH 06/18/25 09:28 1 neb ONCE ONE Administration MDM - SOB/Dyspnea MDM Narrative Medical decision making narrative: This patient is a 74-year-old male who comes in stating that he has not slept the last 2 nights because of cough and shortness of breath. He was diagnosed with a lung cancer and had a lung biopsy at [facility]. He states that he has not felt well since then. He had arrangements for placement of a port but this was canceled because of a pneumonia on top of his lung cancer. He went through about 10 days a treatment and then did have a port placed and now has had his 1st treatment of chemotherapy. He arrives here with some tachypnea initially but at the time of my initial exam and on repeat exam he does not show sign of tachypnea or shortness of breath or use of accessory muscles for breathing. I did obtain a CT scan of his chest which does show definite increase of the tumor to about twice the previous size. There is some surrounding infiltrate that likely is infectious as his white count returns at 33,000. He is not showing signs of sepsis. I did obtain 2 blood cultures seeing his high white count. The patient did receive an IV dose of Solu-Medrol and a DuoNeb in states that he feels a little better with these treatments. 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 He strongly prefers to stay overnight here to get some rest and treatment of his pneumonia. I did prescribe Zosyn and vancomycin and spoke with the hospitalist on-call here who does agree to these treatments with his understanding that we do not have oncology or pulmonology resources in the hospital here. He is admitted to the hospital in a inpatient status. Time spent in critical care of this patient was 30 minutes. Lab Data Labs: Lab Results 06/18/25 06/18/25 Range/Units 09:31 10:00 WBC 33.62 H* (4.50-11.00) K/uL RBC 5.19 (4.30-5.90) m/uL Hgb 14.0 (13.5-17.5) gm/dL Hct 43.7 (37.0-53.0) % MCV 84 (80-100) fL MCH 27 (26-34) pg MCHC 32 (32-36) gm/dL RDW Coeff of Ciara 13.6 (11.5-15.5) % Plt Count 492 H (140-440) K/uL Neut % (Auto) 87.1 H (42.0-72.0) % Lymph % (Auto) 3.5 L (20-44) % [place] % (Auto) 0.7 (0.0-11.0) % Eos % (Auto) 0.1 (0.0-7.0) % Baso % (Auto) 0.1 (0.0-3.0) % Neut # (Auto) 29.30 H (1.7-7.0) K/uL Lymph # (Auto) 1.20 (0.90-2.90) K/uL [place] # (Auto) 0.20 (0.00-0.90) K/UL Eos # (Auto) 0.00 (0.00-0.50) K/uL Baso # (Auto) 0.00 (0.00-0.30) K/uL Abs Immat Gran (auto) 2.90 H (0.00-0.30) K/uL Imm/Tot Granulo (auto) 8.5 % Diff Slide Review Acceptable Review (Acceptable) Sodium 130 L (135-149) mmol/L Potassium 4.2 (3.6-5.1) mmol/L Chloride 92 L (96-114) mmol/L Carbon Dioxide 23 (20-32) mmol/L Anion Gap 15 (7-15) mEq/L BUN 20 (7-30) mg/dL Creatinine 0.9 (0.5-1.5) mg/dL Estimated Creat Clear 53.44 Estimated GFR 89 ml/min Glucose 138 H (60-115) mg/dL Calcium 9.2 (8.4-10.6) mg/dL Troponin I < 0.01 (0.01-0.04) ng/mL ECG Data Attestation: I personally reviewed and interpreted this ECG as follows: Interpretation: Normal sinus rhythm. Rate is 89 beats per minute. There are no ST or T-wave abnormalities. Critical Care Time Critical Care Time Critical Care Time: Yes Attestation: The patient required my highest level preparedness to intervene emergently and I personally spent this critical care time directly and personally managing the patient. This critical care time included: Obtaining a history; Examining the patient; Pulse oximetry; Ordering and reviewing of studies; Arranging urgent treatment with development of a management plan; Evaluation of patients response to treatment; Frequent reassessment discussions with other providers. This critical care time was performed to assess and manage the high probability of imminent life-threatening deterioration that could result in multiorgan failure. It was exclusive of separate billable procedures and treating other patients and teaching time. Total Critical Care Time in Minutes: 30 Discharge Plan Discharge Clinical Impression: Lung cancer, Pneumonia Patient Disposition: Admitted As Inpatient Condition: Unchanged
[2025-06-18] MEDS: METHYLPREDNISOLONE SOD SUCC 62.5 MG/ML (125) 125 MG IVP (09:35)
[2025-06-18] MEDS: IPRAT-ALBUT 0.5-2.5 MG/3 ML NEB 1 NEB IH ×2 (09:38→16:39)
[2025-06-18 10:33] LABS: Hematocrit* 43.7 % (37.0-53.0); Hemoglobin* 14.0 gm/dL (13.5-17.5); Immature Granulocytes Pct Auto 8.5 %; Mean Corpuscular HGB Conc 32 gm/dL (32-36); Mean Corpuscular Hemoglobin 27 pg (26-34); Mean Corpuscular Volume 84 fL (80-100); RDW Coefficient of Variation % 13.6 % (11.5-15.5); Red Blood Count* 5.19 m/uL (4.30-5.90)
[2025-06-18 10:44] LABS: Immature Granulocytes Abs Auto 2.90 K/uL (0.00-0.30); Lymphocytes Absolute Auto 1.20 K/uL (0.90-2.90); White Blood Count* 33.62 K/uL (4.50-11.00)
[2025-06-18 10:45] LABS: Slide Review Reflex Yes
[2025-06-18 10:46] LABS: Chloride* 92 mmol/L (96-114)
[2025-06-18 10:47] LABS: Potassium* 4.2 mmol/L (3.6-5.1); Sodium* 130 mmol/L (135-149)
[2025-06-18 10:50] LABS: Anion Gap 15 mEq/L (7-15); Blood Urea Nitrogen* 20 mg/dL (7-30); Calcium* 9.2 mg/dL (8.4-10.6); Carbon Dioxide* 23 mmol/L (20-32); Creatinine* 0.9 mg/dL (0.5-1.5); Est. Creatinine Clearance* 53.44; Estimated Glomerular Filt Rate 89 ml/min; Glucose* 138 mg/dL (60-115)
[2025-06-18 11:18] LABS: Slide Review Acceptable Review (Acceptable)
[2025-06-18] MEDS: PIPERACILLIN/TAZOBACTAM 3.375 GM in 0.9 % SODIUM CHLORIDE Mini-bag 100 ML IVPB ×2 (12:49→18:51)
[2025-06-18 13:02] VITALS: BP 114/75; PULSE 90; RESP 20; O2SAT 95
[2025-06-18 13:16] VITALS: BP 126/76; RESP 20; TEMP 36.6; O2SAT 95; BMI 36.2
[2025-06-18] MEDS: VANCOMYCIN 1.75 GM/350 ML 1.75 GM/350 ML PIGGYBACK IVPB (14:08)
[2025-06-18 15:22] LABS: Procalcitonin* 0.21 ng/mL (<0.50)
--- NOTE | 2025-06-18 15:56 | PM.IMHP1 ---
Assessment and Plan Assessment and plan (1) Pneumonia: Problem comment: - treated with course of oral antibiotics about 2 weeks prior to admission to hospital on 06/10/2025 with repeat chest x-ray 1 week ago demonstrating improvement of infiltrate already - patient met criteria for systemic inflammatory response syndrome as well as sepsis on presentation to the emergency department on 06/18/2025 with tachycardia, tachypnea, leukocytosis, pulmonary infiltrate suggesting pneumonia as source of infection - IV piperacillin with tazobactam and IV vancomycin for now - nasal MRSA swab, triple swab for COVID-19, influenza a and B, and RSV Status: Acute (2) COPD (chronic obstructive pulmonary disease): Problem comment: - 1st diagnosed in 2004 on 06/19/2025 - received methylprednisolone 120 mg IV in the emergency department, and will treat with prednisone 30 mg daily for 4 more days - scheduled DuoNebs and p.r.n. albuterol - respiratory therapy to consult and assist Status: Acute (3) Lung cancer: Problem comment: - followed by Dr. 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 Radiologist recommended PET-CT, Status: Acute (6) Nonalcoholic fatty liver disease: Status: Acute (7) Malaise and fatigue: Status: Acute (8) HTN (hypertension): Status: Acute (9) Insomnia: Status: Acute (10) Hyponatremia: Problem comment: - suspect this is multifactorial from his increased water intake with decreased solute intake and continued use of hydrochlorothiazide - 1500 mL per day fluid restriction, hold hydrochlorothiazide, monitor Status: Acute Plan 1. Reviewed impression, plans, recommendations with patient 2. Answered his questions to satisfaction 3. Patient agreeable with above stated plans and recommendations Hospitalist- H&P: HPI History of Present Illness Date Seen: 06/18/25 Chief complaint: COPD - SOB - Narrative: Alirio Rodriguez is a 74 year old man with known 80 pack-year history of smoking, chronic obstructive pulmonary disease, diagnosis was minus cell carcinoma upper lobe lung in the past 2 months, received his 1st dose of carboplatinum and gemcitabine 3 days ago. Since he had his fine needle aspirate biopsy of his right upper lobe lung mass 1 month ago he states he has been having more difficulties with breathing and coughing. For about a week after his biopsy he had hemoptysis which subsequently resolved. Three days ago he received his 1st dose of chemotherapy. Has had increased cough and shortness of breath since then. Did have couple episodes of hemoptysis over the last 24 hours which have since resolved. Denies fevers or rigors. Acknowledges ongoing episodes of feeling hot and cold, but denies diaphoresis. His dyspnea has been so profound he has not had much sleep at all in the last 2 nights. He finally decided to call his oncologist who recommended he be assessed in the emergency department. On presentation to the emergency department his temperature is 98.7? F, heart rate is 103 beats per minute, blood pressure 127/74 mmHg, respiratory rate is 30, room air oxygen saturation 94%. He appears ill and having difficult time with his breathing. Was not started on oxygen supplementation. Treated with IV fluids and IV antibiotics. After few hours his vital signs improved with interventions. White count markedly elevated at 33,000 three thousand, normally around [phone]. CT scan of the chest obtained demonstrating markedly enlarged right upper lobe mass, almost twice the size at had been in March of this year, 2 months ago, plus associated pulmonary infiltrates worrisome for pneumonia. Decision was made to admit the patient to the hospital at this juncture and treat for the pneumonia and possible COPD exacerbation. Patient of the markedly increased size of the pulmonary mass. He indicated he would like to speak with his oncologist about this and implications thereof particularly given the fact that he just received his 1st chemotherapy 3 days ago. Patient is agreeable to hospital admission at this juncture. Discussion was had with patient about possibly transferring him to a higher level of care hospital which he declined. Review of Systems Status of ROS: Reports: 10 or more systems reviewed and unremarkable except as noted in History and below Narrative: No recent travel, trauma, injury. Acknowledges increasing generalized weakness. Has had little appetite the last couple weeks particularly the last 2-3 days. Denies chest heaviness, tightness, pressure, or pain. Breathes better when sitting up. Denies syncope or near-syncope. Denies orthostasis, lightheadedness, dizziness. Denies dysuria, urgency, frequency, hematuria. Denies diarrhea or constipation. Ongoing chronic bilateral lower extremity numbness and pain associated with his peripheral neuropathy. No new or acute focal motor neurologic deficits. Medical Decision Making Medical Decision Making Code Status: Adamant about DNR DNI resuscitation status. Has patient completed a Health Care Directive: Yes During This Stay, Who Would You Like To Make Decisions For You In The Event You Are Unable To Make Them For Yourself?: Designates his , Karine, as his decision maker if he is unable to speak on his own behalf. [facility] Medical History History of tobacco use disorder ?Z87.891 - Personal history of nicotine dependence (ICD-10) Encounter for preoperative assessment ?Z01.818 - Encounter for other preprocedural examination (ICD-10) Insomnia ?G47.00 - Insomnia, unspecified (ICD-10) Chronic pruritus ?L29.9 - Pruritus, unspecified (ICD-10) COPD (chronic obstructive pulmonary disease) ?J44.9 - Chronic obstructive pulmonary disease, unspecified (ICD-10) HTN (hypertension) ?I10 - Essential (primary) hypertension (ICD-10) Acute prostatitis ?N41.0 - Acute prostatitis (ICD-10) Dysthymic disorder ?F34.1 - Dysthymic disorder (ICD-10) Elevated liver function tests ?R79.89 - Other specified abnormal findings of blood chemistry (ICD-10) Fasting hyperglycemia ?R73.01 - Impaired fasting glucose (ICD-10) Gastroesophageal reflux disease ?K21.9 - Gastro-esophageal reflux disease without esophagitis (ICD-10) Hyperlipidemia ?E78.5 - Hyperlipidemia, unspecified (ICD-10) Malaise and fatigue ?R53.81 - Other malaise (ICD-10) ?R53.83 - Other fatigue (ICD-10) Nonalcoholic fatty liver disease ?K76.0 - Fatty (change of) liver, not elsewhere classified (ICD-10) Obesity (08/30/11) ?E66.9 - Obesity, unspecified (ICD-10) Obstructive chronic bronchitis with exacerbation ?J44.1 - Chronic obstructive pulmonary disease with (acute) exacerbation (ICD-10) Panic attack ?F41.0 - Panic disorder [episodic paroxysmal anxiety] (ICD-10) Shortness of breath ?R06.02 - Shortness of breath (ICD-10) Tubular adenoma of colon ?D12.6 - Benign neoplasm of colon, unspecified (ICD-10) Pulmonary nodule ?R91.1 - Solitary pulmonary nodule (ICD-10) Thoracic radiculopathy ?M54.14 - Radiculopathy, thoracic region (ICD-10) Rash ?R21 - Rash and other nonspecific skin eruption (ICD-10) Facial rash ?R21 - Rash and other nonspecific skin eruption (ICD-10) MGUS (monoclonal gammopathy of unknown significance) ?D47.2 - Monoclonal gammopathy (ICD-10) Lung cancer ?C34.90 - Malignant neoplasm of unspecified part of unspecified bronchus or lung (ICD-10) Family History Father Coronary artery disease High blood pressure Grandmother Coronary artery disease Brother Alcohol dependence Kidney malignancy Social History Narrative: Medical Problems: Prostatitis, acute Hypertension Obesity COPD (chronic obstructive pulmonary disease) Dxed 2004, on Advair Malaise and fatigue Shortness of breath Panic attack Dysthymia COPD exacerbation Elevated LFTs GERD (gastroesophageal reflux disease) HTN (hypertension) Tubular adenoma of colon Hyperlipidemia NAFLD (nonalcoholic fatty liver disease) Lives with his . They have been for over 55 years. He is a retired audio/video engineer. Designates his as his decision maker in the event he is not able to speak on his own behalf regarding his healthcare. Requests DNR DNI resuscitation status in the event of cardiopulmonary demise. What is your current living situation?: I presently have a place to live Problems where you live: no known problems Problems where you live details: no known problems In the past 12 months, utilities in danger of being shut off: no In past 12 months, lack of transportation kept you from medical appts, meetings, work, or getting things needed for daily living: no In the past 12 mos, have been you worried that your food would run out before you had money to buy more?: never true In the past 12 mos, the food you bought just didn't last and you didn't have money to buy more?: never true Highest level of school completed/degree received: high school graduate Smoking Status: Former smoker Do you use any of these nicotine containing products: None Second hand tobacco smoke exposure: No How often do you have a drink containing alcohol: monthly or less How often do you have six or more drinks on one occasion: Never AUDIT-C Alcohol total score: 1 Non-prescribed substance use: denies use Caffeine: Yes (daily coffee) How often does anyone, including family, friends and others, physically hurt you: never How often does anyone, including family, friends and others, insult or talk down to you: never How often does anyone, including family, friends and others, threaten you with harm: never How often does anyone, including family, friends and others, scream or curse at you: never service: No Meds Home Medications and Allergies Home Medications ?Medication ?Instructions ?Recorded ?Confirmed ?Type albuterol sulfate 90 mcg/actuation 2 puff inhalation Q4-6H PRN 01/07/25 06/18/25 Rx aerosol inhaler shortness of breath or wheezing #8.5 grams fluticasone 500 mcg-salmeterol 50 1 inh inhalation Q12H #180 ea 01/07/25 06/18/25 Rx mcg/dose blistr powdr for inhalation gabapentin 300 mg capsule 300 mg PO TID #90 caps 01/07/25 06/18/25 Rx milk of magnesia 30 ml PO HS 01/07/25 06/18/25 History nebulizers #1 ea 01/07/25 06/14/25 Rx ipratropium 0.5 mg-albuterol 3 mg 3 ml inhalation TID #270 mL 05/06/25 06/18/25 Rx (2.5 mg base)/3 mL nebulization soln acetaminophen 500 mg tablet 1,000 mg PO QID PRN 05/24/25 06/18/25 History (Tylenol Extra Strength) ondansetron HCl 4 mg tablet 4 mg PO Q6-8H #60 tabs 05/24/25 06/18/25 Rx prochlorperazine maleate 5 mg 5 mg PO BID PRN nausea and 05/24/25 06/18/25 Rx tablet (Compazine) vomiting #60 tabs amlodipine 10 mg tablet 10 mg PO DAILY 06/18/25 06/18/25 History diphenhydramine HCl 25 mg capsule 25 mg PO HS 06/18/25 06/18/25 History hydrochlorothiazide 25 mg tablet 25 mg PO DAILY 06/18/25 06/18/25 History lorazepam 1 mg tablet 1 mg PO HS PRN insomnia 06/18/25 06/18/25 History Allergies Allergy/AdvReac Type Severity Reaction Status Date / Time tetanus toxoid, adsorbed Allergy Mild swelling Verified 06/15/25 10:24 of arms Exam Narrative: Exam Narrative: Examine him in his hospital room. Appears tired. Hair disheveled. Vision and hearing are adequate. Alert and oriented x4. Friendly, cooperative. External auditory canals and tympanic membranes are normal. Midline nasal septum. Dry buccal mucosa. Dentition in fair repair. No icterus or conjunctival injection. Conjugate gaze. Neck is full. No obvious JVD or hepatojugular read. No head neck lymphadenopathy. See scattered rhonchi right posterior compared to left. Does have air movement. Minimal expiratory wheezing. No rales. Chest wall excursions are decreased. No CVA tenderness to thumping. Heart tones with regular rhythm, normal S1-S2, without murmur, gallop, rub. PMI not laterally displaced. Abdomen obese with active bowel sounds, soft, nontender. No rebound or guarding. Extremities without edema. Decreased sensation bilateral lower extremities to light touch. Independent with transfers, station, gait. Increased dyspnea with minimal exertion. No focal motor neurologic deficits. Const: Vital Signs, click to edit/add: Vital Signs - 24 hr 06/18/25 09:05 06/18/25 13:02 06/18/25 13:16 Temperature 98.7 F 97.8 F Pulse Rate [Pulse Oximeter] 103 H 90 Respiratory Rate 30 H 20 20 Blood Pressure [Le ft Arm] 126/76 Blood Pressure [Ri ght Upper Arm] 127/74 114/75 Pulse Oximetry 94 95 95 Oxygen Delivery Me thod Room Air Room Air 06/18/25 13:16 Temperature Pulse Rate [Pulse Oximeter] Respiratory Rate 20 Blood Pressure [Le ft Arm] Blood Pressure [Ri ght Upper Arm] Pulse Oximetry 95 Oxygen Delivery Me thod Room Air Hospitalist - H&P: Result Labs Labs: Short CBC 06/18/25 Range/Units 10:00 WBC 33.62 H* (4.50-11.00) K/uL Hgb 14.0 (13.5-17.5) gm/dL Hct 43.7 (37.0-53.0) % Plt Count 492 H (140-440) K/uL BMP 06/18/25 10:00 Sodium 130 L Potassium 4.2 Chloride 92 L Carbon Dioxide 23 BUN 20 Creatinine 0.9 Glucose 138 H Calcium 9.2 Cardiac Enzymes 06/18/25 Range/Units 09:31 Troponin I < 0.01 (0.01-0.04) ng/mL ECG ECG interpretation date: 06/18/25 Prior ECG tracings: not available for review Interpretation: Normal sinus rhythm. Low-voltage consistent with advanced lung disease. Imaging CT scan - chest: Attestation: I have reviewed the pertinent imaging results. Radiologist's impression: FINDINGS: PE: Well-timed contrast bolus. No pulmonary emboli. Normal caliber main pulmonary artery. Normal sized right heart chambers. No reflux of contrast below the diaphragm. Airway: Expiratory appearance of the airway. Lungs: The right upper lobe mass measures 7.5 x 7.5 cm on series 4, image 65. Previously measured 4.2 x 4.9 cm on the PET-CT from 04/15/2025. There is some adjacent subsolid and ground-glass opacification. No new area of pneumonia seen. Subpleural left lower lobe nodule measures 8 millimeters, unchanged. Centrilobular emphysema. Pleura: No pleural effusion. No pneumothorax. Lymph nodes: Enlarged right hilar lymph node measures 1.4 x 1.7 cm on series 4, image 97. Enlarged right lower paratracheal lymph node measures 2.3 x 1.4 cm on series 4, image 63. Right upper paratracheal lymph node measures 1.1 x 1.0 cm on series 4, image 42. All of these lymph nodes appear larger than the recent PET-CT. Mediastinum: No pneumomediastinum. No mass. Heart and great vessels: No pericardial effusion. Normal cardiac chamber size. Scattered atherosclerotic plaques. No aortic aneurysm. There is a left IJ chest port with the distal tip obscured by the contrast bolus. Chest wall: Normal. No masses. Upper abdomen: Normal. Bones: No fractures. No focal bone lesions. Thoracic DISH. IMPRESSION: 1. No pulmonary embolism. 2. Significant growth of the right upper lobe mass, now 7.5 cm. 3. Enlarging right paratracheal and right hilar adenopathy.
[2025-06-18 16:51] LABS: PCR FLU A Negative PCR FLU A (Negative); PCR FLU B Negative PCR FLU B (Negative); PCR RSV Negative PCR RSV (Negative); SARS PCR* Negative SARS-CoV-2 (Negative)
--- NOTE | 2025-06-18 18:37 | RESP.RT ---
Patient is currently on RA and SATing 95%. He has been coughing up old blood/dark secretions. He does have limited lung volume due to his cancer progression. Aerobika is helpful, but he does have a strong cough and is not currently desaturating.
[2025-06-18 19:42] VITALS: BP 130/65; PULSE 94; RESP 20; TEMP 36.5; O2SAT 95
[2025-06-18] MEDS: HEPARIN 500 UNIT/5 ML SYRINGE IVF (19:46)
[2025-06-18] MEDS: MELATONIN 3 MG TABLET PO (20:46)
[2025-06-18] MEDS: SODIUM CHLORIDE 0.9 % (FLUSH) 10 ML SYRINGE 5 ML IVF (20:46)
[2025-06-18] MEDS: GABAPENTIN 300 MG CAPSULE PO (20:46)
[2025-06-18] MEDS: ENOXAPARIN 40 MG/0.4 ML INJ SUBCUT (20:46)
[2025-06-18] MEDS: MAGNESIUM HYDROXIDE 30 ML ORAL.SUSP PO (20:48)
[2025-06-18 21:59] VITALS: BP 133/91; PULSE 93; RESP 18; TEMP 36.3; O2SAT 95
[2025-06-18 22:02] VITALS: RESP 18; O2SAT 95
[2025-06-19] VITALS (8 sets, daily range): BP systolic 118–128; BP diastolic 60–76; PULSE 72–103; RESP 16–22; TEMP 36.4–36.8; O2SAT 92–95
[2025-06-19] MEDS: PIPERACILLIN/TAZOBACTAM 3.375 GM in 0.9 % SODIUM CHLORIDE Mini-bag 100 ML IVPB ×4 (01:17→19:27)
[2025-06-19] MEDS: VANCOMYCIN 1 GM/200 ML 1 GM/200 ML PIGGYBACK IVPB ×2 (01:56→13:42)
[2025-06-19] MEDS: IPRAT-ALBUT 0.5-2.5 MG/3 ML NEB 1 NEB IH ×3 (03:23→20:52)
[2025-06-19 06:12] LABS: HCO3 VBG 26 mmol/L (21-28); Lactate* 1.7 mmol/L (0.5-1.9); PCO2 VBG 40 mmHG (40-50); PO2 VBG 42.2 mmHG (25-47); pH VBG 7.430 (7.32-7.43)
[2025-06-19 06:18] LABS: Hematocrit* 27.9 % (37.0-53.0); Hemoglobin* 8.9 gm/dL (13.5-17.5); Mean Corpuscular HGB Conc 32 gm/dL (32-36); Mean Corpuscular Hemoglobin 27 pg (26-34); Mean Corpuscular Volume 86 fL (80-100); Red Blood Count* 3.25 m/uL (4.30-5.90)
[2025-06-19 06:27] LABS: Slide Review Reflex No; White Blood Count* 27.24 K/uL (4.50-11.00)
[2025-06-19 06:31] LABS: Chloride* 96 mmol/L (96-114); Potassium* 3.9 mmol/L (3.6-5.1); Sodium* 132 mmol/L (135-149)
[2025-06-19 06:33] LABS: Blood Urea Nitrogen* 28 mg/dL (7-30); Creatinine* 1.0 mg/dL (0.5-1.5); Est. Creatinine Clearance* 53.44; Estimated Glomerular Filt Rate 78 ml/min
[2025-06-19 06:34] LABS: Anion Gap 12 mEq/L (7-15); Calcium* 9.0 mg/dL (8.4-10.6); Carbon Dioxide* 24 mmol/L (20-32); Glucose* 168 mg/dL (60-115)
[2025-06-19 06:50] LABS: Procalcitonin* 0.13 ng/mL (<0.50)
[2025-06-19] MEDS: GABAPENTIN 300 MG CAPSULE PO ×3 (08:01→22:20)
[2025-06-19] MEDS: AMLODIPINE 10 MG TABLET PO (08:01)
[2025-06-19] MEDS: SODIUM CHLORIDE 0.9 % (FLUSH) 10 ML SYRINGE 5 ML IVF ×2 (08:01→20:52)
--- NOTE | 2025-06-19 09:58 | RESP.RT ---
Patient continues to use Aerobika and remains on RA SATing 94%.
--- NOTE | 2025-06-19 10:22 | PM.IMPN1 ---
Assessment and Plan Assessment and plan (1) Pneumonia: Problem comment: - treated with course of oral antibiotics about 2 weeks prior to admission to hospital on 06/10/2025 with repeat chest x-ray 1 week ago demonstrating improvement of infiltrate already - patient met criteria for systemic inflammatory response syndrome as well as sepsis on presentation to the emergency department on 06/18/2025 with tachycardia, tachypnea, leukocytosis, pulmonary infiltrate suggesting pneumonia as source of infection - no hypoxia - IV piperacillin with tazobactam and IV vancomycin for now - triple swab for COVID-19, influenza a and B, and RSV negative - MRSA, BC x2 pending Status: Acute (2) COPD (chronic obstructive pulmonary disease): Problem comment: - 1st diagnosed in 2004 on 06/19/2025 - received methylprednisolone 120 mg IV in the emergency department, and will treat with prednisone 30 mg daily for 4 more days - scheduled DuoNebs and p.r.n. albuterol - respiratory therapy to consult and assist Status: Acute (3) Lung cancer: Problem comment: - followed by Dr. 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 He will be discussing his condition and future plans with his oncologist hereafter Status: Acute (4) Pulmonary nodule: Problem comment: - 9 mm left lower lobe. Radiologist recommended PET-CT - outpatient follow-up with PCP for further imaging Status: Acute (5) ZAID (obstructive sleep apnea): Problem comment: - suspected, untreated. Was supposed to have a sleep study in 2011 but has been ?stubborn and not followed through with this. Requesting instead a pill to give him 8 hours of sleep a night - encouraged outpatient follow-up with PCP for sleep study and management recommendations Status: Acute (6) Malaise and fatigue: Problem comment: - acute on chronic, worse over the last few days and since biopsy. Has not been sleeping well quite some time and has been undergoing cancer evaluation and therapies Status: Acute (7) Insomnia: Problem comment: - has been prescribed lorazepam, gabapentin most recently, has tried other pills in the past - none of which actually help half-way. 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 Has not received a significant amount of fluids for dilution. Has been started on vancomycin and Zosyn but typically these hemolytic anemias would be rare. Received carboplatinum and gemcitabine on 06/10/2025. No acute blood loss reported. Will recheck hemoglobin to confirm accuracy. FOBT if remains low Status: Acute Plan Continue IV antibiotics, awaiting blood cultures, MRSA. Therapies for weakness. Total Time Spent Total Time Spent: Today I spent 55 minutes seeing the patient, reviewing Expanse and EPIC notes/diagnostics, discussing the care plan with our care time that includes social work, PT/OT, pharmacy, RT, intermediate and documenting my impressions and plan in the medical record. Subjective Date Seen: 06/19/25 Interval history: Patient is seen sitting up in a chair this morning. Reports feeling much better than yesterday. Still quite fatigued. Denies headache or dizziness. Denies chest pain. Shortness of breath improving. Remains afebrile. Blood pressures are adequate. Tolerating orals without nausea vomiting. WBC downtrending 27.24, previously 33.62 Lactate 1.7, CRP 15 Procalcitonin 0.13, previously 0.21 VBG pH 7.43, pCO2 40, PO2 42, HC03 26 Sodium improved to 132 from 130 Triple swab negative MRSA, BC x2 pending Exam Narrative: Exam Narrative: PHYSICAL EXAM General: Pleasant, conversant, NAD HEENT: Normocephalic, atraumatic, sclera white, EOMI, oral mucosa moist Cardiovascular: RRR, S1S2. No pitting edema Pulmonary: Lung sounds diminished throughout, no expiratory wheezes or rhonchi. No dyspnea on room air Abdominal: Soft, nondistended, NTTP Neurological: Alert, answering questions appropriately, cranial nerves intact, no focal findings Extremities: No gross joint deformity or swelling. AROMI. Neurovascularly intact Skin: Warm, dry. Const: Vital Signs, click to edit/add: Vital Signs - 24 hr 06/18/25 13:02 06/18/25 13:16 06/18/25 13:16 Temperature 97.8 F Pulse Rate [Pulse Oximeter] 90 Respiratory Rate 20 20 20 Blood Pressure [Le ft Arm] 126/76 Blood Pressure [Ri ght Upper Arm] 114/75 Pulse Oximetry 95 95 95 Oxygen Delivery Me thod Room Air Room Air 06/18/25 19:42 06/18/25 21:59 06/18/25 22:02 Temperature 97.7 F 97.3 F L Pulse Rate [Pulse Oximeter] 94 93 Respiratory Rate 20 18 18 Blood Pressure [Le ft Arm] 130/65 133/91 H Blood Pressure [Ri ght Upper Arm] Pulse Oximetry 95 95 95 Oxygen Delivery Me thod Room Air Room Air Room Air 06/19/25 03:00 06/19/25 07:20 06/19/25 07:20 Temperature 97.5 F L Pulse Rate [Pulse Oximeter] 87 84 Respiratory Rate 18 18 18 Blood Pressure [Le ft Arm] 126/69 Blood Pressure [Ri ght Upper Arm] Pulse Oximetry 94 92 Oxygen Delivery Me thod Room Air Room Air 06/19/25 07:20 Temperature 97.5 F L Pulse Rate [Pulse Oximeter] 84 Respiratory Rate 18 Blood Pressure [Le ft Arm] 118/65 Blood Pressure [Ri ght Upper Arm] Pulse Oximetry 92 Oxygen Delivery Me thod Room Air Labs Labs: Laboratory Results - last 24 hr 06/18/25 06/18/25 06/18/25 09:31 10:00 14:47 WBC 33.62 H* RBC 5.19 Hgb 14.0 Hct 43.7 MCV 84 MCH 27 MCHC 32 RDW Coeff of Ciara 13.6 Plt Count 492 H Neut % (Auto) 87.1 H Lymph % (Auto) 3.5 L [place] % (Auto) 0.7 Eos % (Auto) 0.1 Baso % (Auto) 0.1 Neut # (Auto) 29.30 H Lymph # (Auto) 1.20 [place] # (Auto) 0.20 Eos # (Auto) 0.00 Baso # (Auto) 0.00 Abs Immat Gran (auto) 2.90 H Imm/Tot Granulo (auto) 8.5 Diff Slide Review Acceptable Review VBG pH VBG pCO2 VBG pO2 VBG HCO3 Sodium 130 L Potassium 4.2 Chloride 92 L Carbon Dioxide 23 Anion Gap 15 BUN 20 Creatinine 0.9 Estimated Creat Clear 53.44 Estimated GFR 89 Glucose 138 H Lactate Calcium 9.2 Phosphorus Magnesium Troponin I < 0.01 C-Reactive Protein Procalcitonin 0.21 SARS-CoV-2 (PCR) Negative SARS-CoV-2 Influenza Type A (PCR) Negative PCR FLU A Influenza Type B (PCR) Negative PCR FLU B RSV (PCR) Negative PCR RSV Lab Acknowledgement Test Added 06/19/25 06:00 WBC 27.24 H* RBC 3.25 L Hgb 8.9 L Hct 27.9 L MCV 86 MCH 27 MCHC 32 RDW Coeff of Ciara Plt Count 325 Neut % (Auto) Lymph % (Auto) [place] % (Auto) Eos % (Auto) Baso % (Auto) Neut # (Auto) Lymph # (Auto) [place] # (Auto) Eos # (Auto) Baso # (Auto) Abs Immat Gran (auto) Imm/Tot Granulo (auto) Diff Slide Review VBG pH 7.430 VBG pCO2 40 VBG pO2 42.2 VBG HCO3 26 Sodium 132 L Potassium 3.9 Chloride 96 Carbon Dioxide 24 Anion Gap 12 BUN 28 Creatinine 1.0 Estimated Creat Clear 53.44 Estimated GFR 78 Glucose 168 H Lactate 1.7 Calcium 9.0 Phosphorus 3.7 Magnesium 2.5 Troponin I C-Reactive Protein 15.0 H Procalcitonin 0.13 SARS-CoV-2 (PCR) Influenza Type A (PCR) Influenza Type B (PCR) RSV (PCR) Lab Acknowledgement
[2025-06-19] MEDS: ALBUTEROL SULFATE 2.5 MG/3 ML VIAL.NEB NEB (12:49)
[2025-06-19 13:09] LABS: Hemoglobin* 13.1 gm/dL (13.5-17.5)
--- NOTE | 2025-06-19 15:05 | PC.NURSE ---
End of shift summary: Client is A&O and makes his needs known. VSS, afebrile. Client reports dyspnea is improved today, declines having any with exertion. He mostly c/o of poor exertion & feeling exhausted. Left chest port accessed & patent. On IV Zosyn & IV Vanco. DuoNebs as scheduled, PRN Albuterol neb given @1250 for some chest tightness with coughing episode. Reports dry cough and decrease in expectorant today. Has c/o constipation- requests full dose of milk of mag this evening. He's had small, hard BM today. Noon Hgb 13.1. No c/o pain, nausea or dizziness. Recommendation is STR after discharge.
[2025-06-19] MEDS: MAGNESIUM HYDROXIDE 30 ML ORAL.SUSP PO ×2 (17:42→20:52)
[2025-06-19] MEDS: guaiFENesin 600 MG TAB.ER.12H PO (17:42)
[2025-06-19] MEDS: ENOXAPARIN 40 MG/0.4 ML INJ SUBCUT (20:51)
[2025-06-19] MEDS: ALBUTEROL INHALER 2 PUFF IH (20:51)
[2025-06-20] MEDS: PIPERACILLIN/TAZOBACTAM 3.375 GM in 0.9 % SODIUM CHLORIDE Mini-bag 100 ML IVPB ×3 (01:14→12:23)
[2025-06-20] MEDS: VANCOMYCIN 1 GM/200 ML 1 GM/200 ML PIGGYBACK IVPB (02:34)
[2025-06-20 02:37] VITALS: BP 146/75; PULSE 74; RESP 18; TEMP 36.8; O2SAT 94
[2025-06-20] MEDS: ALBUTEROL SULFATE 2.5 MG/3 ML VIAL.NEB NEB (05:22)
--- NOTE | 2025-06-20 06:13 | PC.NURSE ---
End of shift: Pt pleasant, alert and oriented. VSS. Pt has cough with sputum production. Pt stated not having BM for 3 days, prune juice and prn senna provided. 2000 FR. Independent in room, SBA in gómez. Left chest port patent. Pt in bed, appears to be resting, call light within reach.
[2025-06-20] MEDS: DOCUSATE SODIUM 100 MG CAPSULE PO (06:54)
[2025-06-20 07:09] LABS: Hematocrit* 40.8 % (37.0-53.0); Hemoglobin* 12.7 gm/dL (13.5-17.5); Mean Corpuscular HGB Conc 31 gm/dL (32-36); Mean Corpuscular Hemoglobin 27 pg (26-34); Mean Corpuscular Volume 86 fL (80-100); Red Blood Count* 4.76 m/uL (4.30-5.90); White Blood Count* 21.19 K/uL (4.50-11.00)
[2025-06-20 07:11] LABS: Slide Review Reflex No
[2025-06-20 07:23] LABS: Chloride* 98 mmol/L (96-114); Potassium* 4.1 mmol/L (3.6-5.1); Sodium* 136 mmol/L (135-149)
[2025-06-20 07:26] LABS: Anion Gap 15 mEq/L (7-15); Blood Urea Nitrogen* 23 mg/dL (7-30); Calcium* 8.9 mg/dL (8.4-10.6); Carbon Dioxide* 23 mmol/L (20-32); Creatinine* 0.9 mg/dL (0.5-1.5); Est. Creatinine Clearance* 53.44; Estimated Glomerular Filt Rate 89 ml/min; Glucose* 142 mg/dL (60-115)
[2025-06-20 08:00] VITALS: RESP 18
[2025-06-20 08:25] VITALS: BP 124/73; PULSE 92; RESP 18; TEMP 36.4; O2SAT 93
[2025-06-20] MEDS: AMLODIPINE 10 MG TABLET PO (08:29)
[2025-06-20] MEDS: guaiFENesin 600 MG TAB.ER.12H PO (08:30)
[2025-06-20] MEDS: GABAPENTIN 300 MG CAPSULE PO (08:30)
[2025-06-20] MEDS: IPRAT-ALBUT 0.5-2.5 MG/3 ML NEB 1 NEB IH (09:30)
--- NOTE | 2025-06-20 10:58 | PM.DS1 ---
DS: Providers Provider Date Seen: 06/20/25 Date of admission: 06/18/25 13:22 Primary care physician: Benoit Lyons MD Admitting Clinician: Jenn Jonas MD Consults: 06/18/25 14:47 Consult to Respiratory Therapy [CONS] Routine Comment: Reason(s) for RT Consult:: Consult 06/18/25 16:25 Consult to Physical Therapy [CONS] Routine Comment: Reason(s) for PT Consult:: Evaluate and Treat Any Restrictions?:: No Restrictions Attending Physician on discharge: Fozia Valencia [facility], [facility] Date of Discharge: 06/20/25 DS: Diagnosis Discharge Diagnosis (1) Pneumonia: Status: Acute Problem details: - treated with course of oral antibiotics about 2 weeks prior to admission to hospital on 06/10/2025 with repeat chest x-ray 1 week ago demonstrating improvement of infiltrate already - patient met criteria for systemic inflammatory response syndrome as well as sepsis on presentation to the emergency department on 06/18/2025 with tachycardia, tachypnea, leukocytosis, pulmonary infiltrate suggesting pneumonia as source of infection - no hypoxia - IV piperacillin with tazobactam and IV vancomycin for now - triple swab for COVID-19, influenza a and B, and RSV negative - MRSA negative - vancomycin discontinued, BC x2 NGTD On day of discharge, vancomycin was discontinued, received 2 doses of IV Zosyn. Transitioned to oral levofloxacin for a 10 day dose, having received 2 days of IV antibiotics. Will complete 4 day course of oral prednisone following initial dose of methylprednisolone. Close outpatient follow-up with PCP and Oncology. (2) COPD (chronic obstructive pulmonary disease): Status: Acute Problem details: - 1st diagnosed in 2004 on 06/19/2025 - received methylprednisolone 120 mg IV in the emergency department, and will treat with prednisone 30 mg daily for 4 more days - scheduled DuoNebs and p.r.n. albuterol - respiratory therapy to consult and assist Responded well to nebs, no hypoxia. Discharged with management of pneumonia as above. (3) Lung cancer: Status: Acute Problem details: - followed by Dr. 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 He will be discussing his condition and future plans with his oncologist hereafter Following discharge, patient will follow-up with oncology team to discuss ongoing management plan. (4) Pulmonary nodule: Status: Acute Problem details: - 9 mm left lower lobe. Radiologist recommended PET-CT - outpatient follow-up with PCP/Oncology for further imaging (5) ZAID (obstructive sleep apnea): Status: Acute Problem details: - suspected, untreated. Was supposed to have a sleep study in 2011 but has been ?stubborn and not followed through with this. Requesting instead a pill to give him 8 hours of sleep a night - encouraged outpatient follow-up with PCP for sleep study and management recommendations, patient in agreement (6) Malaise and fatigue: Status: Acute Problem details: - acute on chronic, worse over the last few days and since biopsy. Has not been sleeping well quite some time and has been undergoing cancer evaluation and therapies Resolved prior to discharge, encouraged ongoing rest when returns home. (7) Insomnia: Status: Acute Problem details: - has been prescribed lorazepam, gabapentin most recently, has tried other pills in the past - none of which actually help intermediate. Asking why there isn't a chemical to help him sleep - encouraged to follow-up with sleep study (8) HTN (hypertension): Status: Acute Problem details: - continue amlodipine, HCTZ on hold - resume following discharge (9) Hyponatremia: Status: Acute Problem details: - suspect this is multifactorial from his increased water intake with decreased solute intake and continued use of hydrochlorothiazide - 1500 mL per day fluid restriction, hold hydrochlorothiazide, monitor 06/19 sodium 130->132. 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 Has not received a significant amount of fluids for dilution. Has been started on vancomycin and Zosyn but typically these hemolytic anemias would be rare. Received carboplatinum and gemcitabine on 06/10/2025. No acute blood loss reported. Will recheck hemoglobin to confirm accuracy. FOBT if remains low Recheck of hemoglobin is 13.1. Appears the 8.9 was a lab error. Prior to discharge, hemoglobin is 12.7. I do believe he will have some level of drug-induced anemia related to his ongoing therapies with carboplatinum and gemcitabine. PCP to follow. DS: Summary Hospital Course Hospital Course: Course of care and details as noted above. Admitted with suspected pneumonia in setting of active lung cancer, increased lung mass noted. Met criteria for SIRS. Lactate was normal. Baseline elevated WBC noted to be trending down following IV antibiotic therapies. MRSA negative so vancomycin discontinued. Patient discharged on oral levofloxacin for a 10 day course following a 2 day course of IV antibiotics given immunocompromised state and recent outpatient oral antibiotic therapy. Sodium normalized. Close outpatient follow-up with PCP and Oncology. Further conversation with Oncology given increase in mass size to direct plan of cares. Status at Discharge Functional status at discharge: independent ambulation Overall status at discharge: patient is back to baseline Time Spent with Patient Time attestation: Total time spent providing and/or coordinating discharge services: Time spent: Greater than 30 minutes Exam Narrative: Exam Narrative: PHYSICAL EXAM General: Pleasant, conversant, NAD Cardiovascular: RRR Pulmonary: No dyspnea Neurological: Alert, answering questions appropriately Skin: Warm, dry. Const: Vital Signs, click to edit/add: Vital Signs - 24 hr 06/19/25 11:30 06/19/25 15:00 06/19/25 16:24 Temperature 97.5 F L 97.7 F Pulse Rate [Pulse Oximeter] 90 103 H Respiratory Rate 18 22 20 Blood Pressure [Le ft Arm] 124/67 Pulse Oximetry 95 94 95 Oxygen Delivery Me thod Room Air Room Air Room Air 06/19/25 19:55 06/19/25 23:00 06/19/25 23:00 Temperature 98.2 F Pulse Rate [Pulse Oximeter] 98 72 Respiratory Rate 16 16 16 Blood Pressure [Le ft Arm] 119/60 Pulse Oximetry 93 95 Oxygen Delivery Me thod Room Air Room Air 06/19/25 23:48 06/20/25 02:37 06/20/25 08:00 Temperature 98.3 F 98.3 F Pulse Rate [Pulse Oximeter] 72 74 Respiratory Rate 16 18 18 Blood Pressure [Le ft Arm] 128/76 146/75 H Pulse Oximetry 95 94 Oxygen Delivery Me thod Room Air Room Air 06/20/25 08:00 06/20/25 08:25 Temperature 97.5 F L Pulse Rate [Pulse Oximeter] 92 Respiratory Rate 18 Blood Pressure [Le ft Arm] 124/73 Pulse Oximetry 93 Oxygen Delivery Me thod Room Air Room Air DS: Data Data Completed and Pending Labs on day of discharge: Labs from last 24 hours 06/20/25 06/19/25 06:05 12:20 WBC 21.19 H RBC 4.76 Hgb 12.7 L 13.1 L Hct 40.8 MCV 86 MCH 27 MCHC 31 L Plt Count 438 Sodium 136 Potassium 4.1 Chloride 98 Carbon Dioxide 23 Anion Gap 15 BUN 23 Creatinine 0.9 Estimated Creat Clear 53.44 Estimated GFR 89 Glucose 142 H Calcium 8.9 Preliminary micro results at discharge 06/18/25 12:36 Blood Culture - Preliminary Blood NO GROWTH AFTER 24 HOURS 06/18/25 12:32 Blood Culture - Preliminary Blood NO GROWTH AFTER 24 HOURS Imaging CTA chest: Attestation: I have reviewed the pertinent imaging results. Radiologist's impression: Lung cancer, shortness of breath, cough. COMPARISON: Chest radiograph 04/01/2024, PET-CT 04/15/2025 TECHNIQUE: CT angiogram chest with contrast, pulmonary embolism protocol. Multiplanar axial, coronal, and sagittal reformats are included. MIP images to improve detection of pulmonary emboli are included. Intravenous contrast: 95 mL Isovue 370. FINDINGS: PE: Well-timed contrast bolus. No pulmonary emboli. Normal caliber main pulmonary artery. Normal sized right heart chambers. No reflux of contrast below the diaphragm. Airway: Expiratory appearance of the airway. Lungs: The right upper lobe mass measures 7.5 x 7.5 cm on series 4, image 65. Previously measured 4.2 x 4.9 cm on the PET-CT from 04/15/2025. There is some adjacent subsolid and ground-glass opacification. No new area of pneumonia seen. Subpleural left lower lobe nodule measures 8 millimeters, unchanged. Centrilobular emphysema. Pleura: No pleural effusion. No pneumothorax. Lymph nodes: Enlarged right hilar lymph node measures 1.4 x 1.7 cm on series 4, image 97. Enlarged right lower paratracheal lymph node measures 2.3 x 1.4 cm on series 4, image 63. Right upper paratracheal lymph node measures 1.1 x 1.0 cm on series 4, image 42. All of these lymph nodes appear larger than the recent PET-CT. Mediastinum: No pneumomediastinum. No mass. Heart and great vessels: No pericardial effusion. Normal cardiac chamber size. Scattered atherosclerotic plaques. No aortic aneurysm. There is a left IJ chest port with the distal tip obscured by the contrast bolus. Chest wall: Normal. No masses. Upper abdomen: Normal. Bones: No fractures. No focal bone lesions. Thoracic DISH. IMPRESSION: 1. No pulmonary embolism. 2. Significant growth of the right upper lobe mass, now 7.5 cm. 3. Enlarging right paratracheal and right hilar adenopathy. Discharge Plan Discharge Disposition: Home, Self-Care Date of Admission: 06/18/25 13:22 Attending Provider on Discharge: Fozia Valencia Primary Care Provider: Benoit Lyons Condition: Unchanged Anticipated Discharge Date/Time: 06/20/25 10:50 Discharge Medications: New prednisone 10 mg Tablet 30 mg PO DAILYWM 2 Days Qty: 6 0RF Rx Instructions: To be taken 06/21 and 06/22 levofloxacin 750 mg tablet 750 mg PO DAILY Qty: 10 0RF Continued milk of magnesia 30 ml PO HS gabapentin 300 mg capsule 300 mg PO TID Qty: 90 11RF albuterol sulfate 90 mcg/actuation HFA aerosol inhaler 2 puff inhalation Q4-6H PRN (Reason: shortness of breath or wheezing) Qty: 8.5 10RF fluticasone propion-salmeterol 500-50 mcg/dose blister with device 1 inh inhalation Q12H Qty: 180 4RF acetaminophen [Tylenol Extra Strength] 500 mg tablet 1,000 mg PO QID PRN prochlorperazine maleate [Compazine] 5 mg tablet 5 mg PO BID PRN (Reason: nausea and vomiting) Qty: 60 0RF ondansetron HCl 4 mg tablet 4 mg PO Q6-8H Qty: 60 0RF amlodipine 10 mg tablet 10 mg PO DAILY hydrochlorothiazide 25 mg tablet 25 mg PO DAILY lorazepam 1 mg tablet 1 mg PO HS PRN (Reason: insomnia) diphenhydramine HCl 25 mg capsule 25 mg PO HS ipratropium-albuterol 0.5 mg-3 mg(2.5 mg base)/3 mL solution for nebulization 3 ml inhalation TID Qty: 270 4RF No Action (DME) nebulizers Misc See Rx Instructions .Route Qty: 1 0RF Rx Instructions: As directed Discharge Orders: Discharge Order (Routine); Ordered 06/20/25 Ordered By: Fozia Valencia Patient Education: Prednisone (By mouth), Levofloxacin (By mouth), Community Acquired Pneumonia (DC) Additional Instructions: You have completed 2 days of IV antibiotic therapy. You will need 10 days of levofloxacin and 2 more days of oral prednisone. Rest and stay hydrated. Recommend substituting free water with electrolytes (you can purchase Gatorade, Powerade, Liquid IV at your local store - they come in powder form as well to add to your water). Activity Level: Activity as Tolerated Discharge Diet: Regular Follow Up Appointments: Benoit Lyons MD [Primary Care Provider, Family Practice] - 06/30/25 12:45 pm Referral Note: [facility] for hospital follow-up. Forms: [facility] Info Instructions
[2025-06-20] MEDS: HEPARIN 500 UNIT/5 ML SYRINGE IVF (13:05)
--- NOTE | 2025-06-20 13:58 | PC.NURSE ---
The patient discharged home this afternoon. All discharge instructions and follow up recommendations were discussed with the patient. L chest port was de-accessed, the patient does report tenderness at the sight. It also has some bruising present above the sight. No reports of pain upon discharge. No shortness of breathe reported by the patient. New medications for use outpatient were discussed as well. Becca CANTU-BSN
--- NOTE | 2025-06-21 09:37 | ONC.NURNOTE ---
follow up call to Duc- he reports that he is feeling better since hospitalization breathing is much better he is able to walk up and down the stairs which he is doing several times a day answered questions about his discharge meds- having some wakefulness at night suggested taking all prednisone early in the day together, instead of dividing dose throughout the day Duc understands to call with any other questions or concerns has follow up appts
== END 2025-06-20 13:05 | disposition home or self-care (01) | DRG 871 ==
LOC: ED 12:33 → MEDSURG 13:23
PROVIDERS: Physician Assistant; Admitting Provider Internal Medicine; Emergency Provider Emergency Medicine Emergency Medical Services; PCP Family Medicine; Visit Provider Internal Medicine
DX: A41.9 Sepsis, unspecified organism (principal); J18.9 Pneumonia, unspecified organism; C34.11 Malignant neoplasm of upper lobe, right bronchus or lung; E87.1 Hypo-osmolality and hyponatremia; G47.33 Obstructive sleep apnea (adult) (pediatric); G47.00 Insomnia, unspecified; I10 Essential (primary) hypertension; D64.9 Anemia, unspecified; D47.2 Monoclonal gammopathy; R91.1 Solitary pulmonary nodule; J44.9 Chronic obstructive pulmonary disease, unspecified; Z66 Do not resuscitate; K21.9 Gastro-esophageal reflux disease without esophagitis; K76.0 Fatty (change of) liver, not elsewhere classified; Z87.891 Personal history of nicotine dependence; Z45.2 Encounter for adjustment and management of vascular access device
CPT/HCPCS: 00532; 36415; 71045; 71275; 76000; 76998; 80048; 80050; 80053; 82803; 83605; 83735; 84100; 84145; 84443; 84484; 85018; 85025; 85027; 86140; 87040; 87081; 87631; 93005; 94640; 94664; 96367; 96372; 96375; 96413; 96417; 97116; 97161; 97530; 99100; 99202; 99204; 99211; 99215; 99285; 99291; G0463; J2003; Q5122; A9270; C1788; J0665; J0690; J1100; J1453; J1642; J1650; J2405; J2469; J2543; J2704; J2919; J3010; J3375; J3490; J7050; J7120; J7512; J9045; J9201; J9299; Q9967

== ENCOUNTER 2025-07-08 10:47 | Outpatient (CLI) | payer MEDICARE, SELFPAY ==
--- NOTE | 2025-07-08 11:30 | CRLHL7_ITS ---
For Patients: As a result of the Century Cures Act, medical imaging exams and procedure reports are released immediately into your electronic medical record. You may view this report before your referring provider. If you have questions, please contact your health care provider. Indication: Lung cancer Technique: CT Chest 75CC ISOVUE 370 intravenous contrast Please note that all CT scans at this facility use dose modulation, iterative reconstruction, and/or weight-based dosing when appropriate to reduce radiation dose to as low as reasonably achievable. Comparison: 06/18/2025 Findings: Decreased consolidative masslike density within the posterior right upper lobe with air bronchograms now present. This masslike area measures 6.2 x 4.8 cm, previously measuring 6.6 x 7.3 cm. Also improved aeration within the remaining upper lobe with decreased airspace densities and decreased fullness of the interstitium. Underlying COPD/emphysema. Unchanged nodule at the left lower lobe posteriorly which measures 9 millimeters, . No pleural effusion or pneumothorax. Chronic pain reticular scarring in the right upper lobe laterally, 10/10. Diffuse idiopathic skeletal hyperostosis. No fracture or intrinsic osseous lesion. Mild fullness of the right hilar lymph nodes. No enlarged mediastinal lymph nodes. Normal axillary lymph nodes. Incidental simple cyst arises from the upper pole of the right kidney. Bilateral subareolar gynecomastia. Impression: Decreased masslike opacification within the right upper lobe and improved aeration within the remaining right upper lobe since the prior study. Persistent mild fullness of the right hilar lymph nodes without mediastinal adenopathy. Please note that all CT scans at this facility use dose modulation, iterative reconstruction, and/or weight-based dosing when appropriate to reduce radiation dose to as low as reasonably achievable. Dictated by Jerry Chavez MD @ 07/08/2025 3:59:24 PM (Electronically Signed)
== END 2025-07-08 10:48 | disposition home or self-care (01) ==
LOC: CT 10:48
PROVIDERS: PCP Family Medicine; Visit Provider Nurse Practitioner
DX: C34.91 Malignant neoplasm of unspecified part of right bronchus or lung (principal)
CPT/HCPCS: 71260; Q9967